=== PATIENT | female | born 1965 | race Caucasian/White ===

== ENCOUNTER 2019-02-17 16:55 | Emergency (ER) | payer OTHER ==
[2019-02-17] MEDS ORDERED: MORPHINE 4 MG/ML SYR ONE ×2 (18:52→20:16)
[2019-02-17] MEDS ORDERED: ONDANSETRON 4 MG/2 ML VIAL ONE ×2 (18:52→20:16)
[2019-02-17 18:56] LABS: Absolute Lymphocytes (CBC) 2.6 K/uL (0.7-4.9); Basophils % 0.8 % (0-1.3); Hematocrit 39.1 % (36.0-45.0); Lymphocytes % 35.1 % (15.3-44.8); MPV 7.4 fL (7.6-11.3); RBC Red Blood Cell Count 3.97 M/uL (3.86-4.86)
[2019-02-17 19:05] LABS: Protime INR 0.97
--- NOTE | 2019-02-17 19:07 | RAD REPORT ---
EXAM DESCRIPTION: RAD - Chest Single View - 02/17/2019 6:59 pm CLINICAL HISTORY: Chest pain COMPARISON: January 2018 TECHNIQUE: AP portable chest image was obtained 1858 hours . FINDINGS: Lungs are clear. Heart and vasculature are normal. No measurable pleural effusion and no p neumothorax. No acute bony abnormality seen. No acute aortic findings suspected. No significant inter oz change. IMPRESSION: No acute cardiopulmonary process.
[2019-02-17 19:20] LABS: ALT/SGPT 14 U/L (12-78); AST/SGOT 12 U/L (15-37); Albumin 3.7 g/dL (3.4-5.0); Alkaline Phosphatase 74 U/L (45-117); BUN Blood Urea Nitrogen 15 mg/dL (7-18); Bicarbonate 23 mmol/L (21-32); Bilirubin Direct < 0.1 mg/dL (0-0.2); Bilirubin Total 0.2 mg/dL (0.2-1.0); Glucose Level 84 mg/dL (74-106); Magnesium 2.1 mg/dL (1.8-2.4); NT PRO-BNP 170 pg/mL (<125); Potassium 3.7 mmol/L (3.5-5.1); Protein, Total 6.9 g/dL (6.4-8.2); Sodium Level 144 mmol/L (136-145); Troponin (Emerg Dept Use Only) < 0.02 ng/mL (0.0-0.045)
--- NOTE | 2019-02-17 20:04 | EDPHYS ---
Physician Documentation [facility] Name: Sherri De La Garza Age: 53 yrs Sex: Female : 1965 Arrival Date: 02/17/2019 Time: 16:58 Bed 25 Private MD: ED Physician Nelson Adams HPI: 02/17 18:51 This 53 yrs old Female presents to ER via Ambulatory with complaints of Chest ma2 Pain > 30 y/o. 18:51 The patient or guardian reports chest pain that is located primarily in the substernal ma2 area. 18:52 Onset: gradually, 1 week(s) ago. Associated signs and symptoms: Pertinent positives: ma2 Pertinent negatives: abdominal pain, diaphoresis, headache, lower extremity swelling, nausea. The chest pain is described as aching. Severity of pain: At its worst the pain was mild in the emergency department the pain is unchanged. The patient has not experienced similar symptoms in the past. Historical: - Allergies: 16:58 No Known Allergies; la1 - PMHx: 16:58 Asthma; la1 - Immunization history:: Adult Immunizations up to date. - Social history:: Smoking status: Patient uses tobacco products, smokes one pack cigarettes per day. Patient/guardian denies using alcohol, street drugs, The patient lives with family. - Ebola Screening: : No symptoms or risks identified at this time. - Family history:: not pertinent. ROS: 18:52 Constitutional: Negative for fever, chills, and weight loss. ma2 18:52 All other systems are negative. Exam: 18:52 Constitutional: This is a well developed, well nourished patient who is awake, alert, ma2 and in no acute distress. Head/Face: Normocephalic, atraumatic. Eyes: Pupils equal round and reactive to light, extra-ocular motions intact. Lids and lashes normal. Conjunctiva and sclera are non-icteric and not injected. Cornea within normal limits. Periorbital areas with no swelling, redness, or edema. ENT: Nares patent. No nasal discharge, no septal abnormalities noted. Tympanic membranes are normal and external auditory canals are clear. Oropharynx with no redness, swelling, or masses, exudates, or evidence of obstruction, uvula midline. Mucous membranes moist. Neck: Trachea midline, no thyromegaly or masses palpated, and no cervical lymphadenopathy. Supple, full range of motion without nuchal rigidity, or vertebral point tenderness. No Meningismus. Chest/axilla: ttp mid chest, otherwise Normal chest wall appearance and motion. no deformity. No lesions are appreciated. Cardiovascular: Regular rate and rhythm with a normal S1 and S2. No gallops, murmurs, or rubs. Normal PMI, no JVD. No pulse deficits. Respiratory: Lungs have equal breath sounds bilaterally, clear to auscultation and percussion. No rales, rhonchi or wheezes noted. No increased work of breathing, no retractions or nasal flaring. Abdomen/GI: Soft, non-tender, with normal bowel sounds. No distension or tympany. No guarding or rebound. No evidence of tenderness throughout. Vital Signs: 16:59 Pulse 77; Resp 15; Temp 98.1; Pulse Ox 100% ; Weight 65.77 kg; Height 5 ft. 5 in. la1 (165.10 cm); 17:01 BP 105 / 56; la1 20:18 BP 108 / 63; Pulse 75; Resp 16 S; Pulse Ox 100% on R/A; Pain 0/10; cc3 16:59 Body Mass Index 24.13 (65.77 kg, 165.10 cm) la1 MDM: 18:16 Patient medically screened. ma2 18:52 Differential diagnosis: costochondritis, gastritis, gastroesophageal reflux disease ma2 (GERD), pleurisy. SARA Risk Score: not applicable. Data reviewed: vital signs, nurses notes. 20:03 Response to treatment: the patient's symptoms have resolved after treatment. ut2 02/17 18:28 Order name: Basic Metabolic Panel; Complete Time: 19:42 [facility] 02/17 18:28 Order name: CBC with Diff ut2 02/17 18:28 Order name: LFT's; Complete Time: 19:42 [facility] 02/17 18:28 Order name: Magnesium; Complete Time: 19:42 [facility] 02/17 18:28 Order name: NT PRO-BNP; Complete Time: 19:42 [facility] 02/17 18:28 Order name: PT-INR; Complete Time: 19:42 [facility] 02/17 18:07 Order name: EKG Electrocardiogram [facility] 02/17 18:28 Order name: Troponin (emerg Dept Use Only); Complete Time: 19:42 ma2 02/17 18:28 Order name: XRAY Chest (1 view); Complete Time: 19:42 ma2 02/17 18:28 Order name: Cardiac monitoring; Complete Time: 18:54 ma2 02/17 18:28 Order name: EKG - Nurse/Tech; Complete Time: 18:54 ma2 02/17 18:28 Order name: IV Saline Lock; Complete Time: 18:54 ma2 02/17 18:28 Order name: Labs collected and sent; Complete Time: 18:55 ma2 02/17 18:28 Order name: O2 Per Protocol; Complete Time: 18:55 ma2 02/17 18:28 Order name: O2 Sat Monitoring; Complete Time: 18:55 ma2 Administered Medications: 18:54 Drug: morphine 4 mg Route: IVP; Site: right forearm; rv 20:23 Follow up: Response: RASS: Alert and Calm (0) rv 18:54 Drug: Zofran 4 mg Route: IVP; Site: right forearm; rv 20:23 Drug: morphine 4 mg Route: IVP; Site: right forearm; rv 20:24 Follow up: Response: RASS: Alert and Calm (0) rv 20:23 Drug: Zofran 4 mg Route: IVP; Site: right forearm; rv 20:30 Follow up: Response: No adverse reaction; Nausea is decreased cc3 Disposition: 02/17/19 20:03 Discharged to Home. Impression: Acute bronchitis. - Condition is Stable. - Discharge Instructions: Acute Bronchitis, Adult. - Prescriptions for Tylenol- Codeine #3 300-30 mg Oral Tablet - take 2 tablet by ORAL route every 6 hours As needed; 30 tablet. Tessalon Perles 100 mg Oral Capsule - take 1 capsule by ORAL route every 8 hours As needed; 15 capsule. Tramadol 50 mg Oral Tablet - take 1 tablet by ORAL route every 8 hours as needed; 12 tablet. - Medication Reconciliation Form, Thank You Letter, Antibiotic Education, Prescription Opioid Use form. - Follow up: Private Physician; When: Tomorrow; Reason: If symptoms return. Signatures: Dispatcher [employer] EDWV Niko Qiu RN RN la1 Nelson Adams MD MD ma2 Bashir Vera RN RN Sobia Javed cc3 Corrections: (The following items were deleted from the chart) 20:32 20:03 02/17/2019 20:03 Discharged to Home. Impression: Acute bronchitis. Condition is cc3 Stable. Forms are Medication Reconciliation Form, Thank You Letter, Antibiotic Education, Prescription Opioid Use. Follow up: Private Physician; When: Tomorrow; Reason: If symptoms return. ma2
--- NOTE | 2019-02-17 20:04 | ER ---
Nurse's Notes [facility] Name: Sherri De La Garza Age: 53 yrs Sex: Female : 1965 Arrival Date: 02/17/2019 Time: 16:58 Bed 25 Private MD: Diagnosis: Acute bronchitis Presentation: 02/17 16:58 Presenting complaint: Patient states: I have been having chest pain since last week, la1 seen by PCP on Sunday. I still have a sharp and dull pain in my chest. Transition of care: patient was not received from another setting of care. Onset of symptoms was February 17, 2019. Risk Assessment: Do you want to hurt yourself or someone else? Patient reports no desire to harm self or others. Initial Sepsis Screen: Does the patient meet any 2 criteria? No. Patient's initial sepsis screen is negative. Does the patient have a suspected source of infection? No. Patient's initial sepsis screen is negative. Care prior to arrival: None. 16:58 Method Of Arrival: Ambulatory la1 16:58 Acuity: NICOLE 3 la1 Historical: - Allergies: 16:58 No Known Allergies; la1 - PMHx: 16:58 Asthma; la1 - Immunization history:: Adult Immunizations up to date. - Social history:: Smoking status: Patient uses tobacco products, smokes one pack cigarettes per day. Patient/guardian denies using alcohol, street drugs, The patient lives with family. - Ebola Screening: : No symptoms or risks identified at this time. - Family history:: not pertinent. Screenin:56 Abuse screen: Denies threats or abuse. Denies injuries from another. Nutritional rv screening: No deficits noted. Tuberculosis screening: No symptoms or risk factors identified. Fall Risk None identified. Assessment: 18:55 General: Appears in no apparent distress. uncomfortable, Behavior is calm, cooperative. rv Pain: Complains of pain in chest Pain does not radiate. Pain currently is 10 out of 10 on a pain scale. Pain began suddenly. Neuro: Level of Consciousness is awake, alert, obeys commands, Oriented to person, place, time, situation. Cardiovascular: Rhythm is regular. Respiratory: Airway is patent. GI: No signs and/or symptoms were reported involving the gastrointestinal system. : No signs and/or symptoms were reported regarding the genitourinary system. EENT: No signs and/or symptoms were reported regarding the EENT system. Derm: Skin is intact. Musculoskeletal: No signs and/or symptoms reported regarding the musculoskeletal system. 20:30 Reassessment: Patient appears in no apparent distress at this time. Patient and/or cc3 family updated on plan of care and expected duration. Pain level reassessed. Patient is alert, oriented x 3, equal unlabored respirations, skin warm/dry/pink. Dr. Adams discharged the patient home with prescriptions given. IV cannula removed and patient left ER vitally stable and ambulatory with her . No valuables left in the patient's room. Patient denies pain at this time. Patient states feeling better. Patient states symptoms have improved. Vital Signs: 16:59 Pulse 77; Resp 15; Temp 98.1; Pulse Ox 100% ; Weight 65.77 kg; Height 5 ft. 5 in. la1 (165.10 cm); 17:01 BP 105 / 56; la1 20:18 BP 108 / 63; Pulse 75; Resp 16 S; Pulse Ox 100% on R/A; Pain 0/10; cc3 16:59 Body Mass Index 24.13 (65.77 kg, 165.10 cm) la1 ED Course: 16:58 Patient arrived in ED. la1 16:58 Arm band placed on left wrist. la1 16:59 Triage completed. la1 17:24 EKG done, by printer repair technician. reviewed by Skip Vasquez MD. sm3 18:15 Nelson Adams MD is Attending Physician. ma2 18:45 Inserted saline lock: 22 gauge in right forearm, using aseptic technique. Blood rv collected. Patient maintains SpO2 saturation greater than 95% on room air. 18:49 Bashir Vera, TESS is Primary Nurse. rv 18:56 Patient has correct armband on for positive identification. Placed in gown. Bed in low rv position. Call light in reach. Side rails up X 1. Adult w/ patient. cafeteria monitor on. Pulse ox on. NIBP on. 19:04 XRAY Chest (1 view) In Process Unspecified. EDMS 20:30 No provider procedures requiring assistance completed. IV discontinued, intact, cc3 bleeding controlled, No redness/swelling at site. Pressure dressing applied. Administered Medications: 18:54 Drug: morphine 4 mg Route: IVP; Site: right forearm; rv 20:23 Follow up: Response: RASS: Alert and Calm (0) rv 18:54 Drug: Zofran 4 mg Route: IVP; Site: right forearm; rv 20:23 Drug: morphine 4 mg Route: IVP; Site: right forearm; rv 20:24 Follow up: Response: RASS: Alert and Calm (0) rv 20:23 Drug: Zofran 4 mg Route: IVP; Site: right forearm; rv 20:30 Follow up: Response: No adverse reaction; Nausea is decreased cc3 Outcome: 20:03 Discharge ordered by . ma2 20:30 Discharged to home ambulatory, with family. cc3 20:30 Condition: stable 20:30 Discharge instructions given to patient, family, Instructed on discharge instructions, follow up and referral plans. medication usage, Demonstrated understanding of instructions, follow-up care, medications, Prescriptions given X 3. 20:32 Patient left the ED. cc3 Signatures: Dispatcher [employer] EDMS Niko Qiu RN RN Nelson Washington MD MD ma2 Mara Stallworth 3 Bashir Vera RN RN Sobia Javed cc3
[2019-02-17 21:56] VITALS: TEMP 98.1; O2SAT 100
[2019-02-17 21:58] VITALS: BP 105/56
--- NOTE | 2019-02-18 07:25 | EKG ---
Test Date: 2019-02-17 Test Time: 17:04:12 [employer] Supervisor: ANILA MEASUREMENT RESULTS: Intervals: Rate: 71 MS: 146 QRSD: 82 QT: 384 QTc: 417 [place]: P: 75 MS: 146 QRS: 74 T: 66 INTERPRETIVE STATEMENTS: Normal sinus rhythm normal ECG Compared to ECG 05/30/2016 14:00:29 no significant change from previous ECG Electronically Signed On 02-18-19 07:25:09 CDT by Walker Alicea
== END 2019-02-17 20:32 | disposition home or self-care (01) ==
LOC: ER 16:55
DX: J20.9 Acute bronchitis, unspecified (principal); F17.210 Nicotine dependence, cigarettes, uncomplicated
CPT/HCPCS: 93005; 85025; 80048; 36415; 83735; 85610; 80076; 84484; 83880; 71045; 96375; 96374; 99285; J2405 ×2

== ENCOUNTER 2022-04-11 13:09 | Emergency (ER) | payer OTHER ==
[2022-04-11] MEDS ORDERED: ASPIRIN 81 MG CHEWABLE TABLET ONE (13:26)
--- OUTSIDE RECORDS SUMMARY | 2022-04-11 13:26 | XMS REPORT | Clinical Summary ---
:1965 Author Organization [facility] Address [address] [place] [id number] Care Team Providers Name Role Phone Unavailable Primary Care Provider Unavailable Allergies No known active allergies Medications Medication Sig Dispensed Refills Start Date End Date Status albuterol (VENTOLIN 0 05/10/2020 Active HFA,PROAIR HFA) 90 mcg/puff inhaler atorvastatin (LIPITOR) 20 0 05/06/2020 Active mg tablet ergocalciferol (DRISDOL) 0 12/18/2019 Active 50,000 units capsule HYDROcodone-acetaminophen 0 07/23/2020 Active (NORCO) 7.5 mg-325 mg per tablet methylPREDNISolone 0 07/22/2020 Active (MEDROL DOSEPACK) 4 mg tablet pantoprazole (PROTONIX) TAKE 1 TABLET 0 04/30/2020 Active 40 mg EC tablet BY MOUTH DAILY 30 MINUTES BEFORE BREAKFAST (EMPTY STOMACH) zolpidem (AMBIEN) 10 mg 0 07/09/2020 Active tablet INV-() Take 1 tablet 84 tablet 0 09/03/2020 Active varenicline (CHANTIX) 1 (1 mg) by mouth mg tabletIndications: twice daily Ex-smoker for less than 1 year Active Problems Problem Noted Date Ex-smoker for less than 1 year 09/03/2020 Social History Tobacco Use Types Packs/Day Years Used Date Smoking Tobacco: Former Cigarettes 1 2000 - 08/06/2020 Smokeless Tobacco: Never Tobacco Cessation: Ready to Quit: Yes; C ounseling Given: Yes Alcohol Use Standard Drinks/Week Comments Not Currently 0 (1 standard drink = 0.6 oz pure alcoho l) 1-2 drinks year Sex Assigned at Date Recorded Not on file Obstetrics History Last Filed Vital Signs Not on file Plan of Treatment Health Maintenance Due Date Last Done Comments COVID-19 Vaccination (#1) 03/15/1966 Results Not on fileafter 04/11/2021
--- OUTSIDE RECORDS SUMMARY | 2022-04-11 13:26 | XMS REPORT | Continuity of Care Document ---
:1965 Author Organization [facility] t Address [address] [place] [address] Care Team Providers Name Role Phone Asked, No Pcp Primary Care Physician Unavailable Tanmay Hartman Attending Clinician Unavailable SYSTEM, PROVIDER NOT IN Attending Clinician Unavailable Nanci GARCIA, Nisreen Roach Attending Clinician Meri Sanchez MA Attending Clinician Unavailable CATARINO NICKERSON Attending Clinician Unavailable Ximena Fox RN Attending Clinician Unavailable [facility], [facility] Attending Clinician Unavailable Rosalia Martinez PA-C Attending Clinician Payers Payer Name Policy Type Policy Number Effective Date Expiration Date S karin AETNA 53 [id number] 2011 [facility] - 00:00:00 [facility] AETNA 53 [id number] 2021 [facility] - 00:00:00 [facility] AETNA 2 [id number] 2018 00:00:00 Problems Condition Condition Condition Status Onset Resolution Last Treating Co mments Source Name Details Category Date Date Treatment Clinician Date Ex-smoker Ex-smoker Disease Active Uni vers for less for less 4-16 ity of than 1 than 1 00:00: [place] year year MD [facility] [id number] Tobacco Problem Commo n use Spirit disorder - [facility] [id number] PUD Problem Common (peptic Spirit ulcer - [facility] disease) [facility] [id number] Mixed Problem Common hyperlipid Spirit emia - [facility] [id number] Fibromyalg Problem Co mmon ia Spirit - [facility] [id number] Mild Problem Common intermitte Spirit nt asthma - [facility] without [facility] [id number] CORA Problem Common (generaliz Spirit ed anxiety - [facility] disorder) [facility] [id number] GERD Problem Common without Spirit esophagiti - [facility] s [facility] Insomnia Insomnia Problem Commo n Spirit - [facility] [id number] Gastritis, Problem Comm on presence Spirit of - [facility] d chronicity , unspecifie d gastritis type [id number] Osteoarthr Problem Co mmon itis Spirit involving - [facility] multiple [facility] joints on [facility] both sides Medica [facility] of body Center [id number] Migraine Problem Comm on without Spirit aura and - [facility] without [facility] status [facility], not Center intractabl e [id number] Lumbago Problem Commo n with Spirit sciatica, - [facility]I unspecifie [facility] side [facility] [id number] Other Problem Common chronic Spirit pain - [facility] No known No known Disease Unive rs active active ity of problems problems [place] [facility] Allergies, Adverse Reactions, Alerts Allergy Allergy Status Severity Reaction(s) Onset Inactive Treating Comm ents Source Name Type Date Date Clinician Acetamin Propensi Active Other - See Chest U nivers ophen-Co ty to comments 01-10 pain ity of deine adverse 00:00: [place] reaction 00 [facility] s [facility] ACETAMIN DRUG Active Other-Cmnt Univ ers OPHEN-CO 01-10 ity of DEINE 00:00: [place] 00 [facility] Family History Family Member Diagnosis Comments Start Date Stop Date Source Maternal grandfather Colon cancer [facility] Maternal grandfather Liver cancer [facility] Maternal grandfather Pancreatic cancer [facility] Maternal grandmother Ulcerative colitis [facility] Natural mother Ulcerative colitis [facility] Natural sister Irritable bowel [facility] Social History Social Habit Start Date Stop Date Quantity Comments Source History of Tobacco Current Smoker Co mmon Spirit - Use [facility] History [facility] University o f Alcohol Std Drinks [place] [facility] [place] History [facility] o f Alcohol Binge [facility] al [place] Alcohol intake 2022-02-07 2022-02-07 Lifetime Denominational 00:00:00 00:00:00 non-drinker Hospital (finding) Cigarettes smoked 2022-01-02 2022-01-[address] current (pack per 00:00:00 00:00:00 Hospita l day) - Reported Cigarette 2022-01-02 2022-01-02 Denominational pack-years 00:00:00 00:00:00 Hospital Tobacco use and 2022-01-02 2022-01-02 Smokeless Denominational exposure 00:00:00 00:00:00 tobacco non-user Hospital Alcohol Comment 2020-07-23 2020-07-23 1-2 drinks year Univ ersity of 00:00:00 00:00:00 [place] MD [facility] History SDAR 2018-11-19 2018-11-19 1 University o f Alcohol Frequency 00:00:00 00:00:00 [facility] [place] Sex Assigned At [birth year] Denominational 00:00:00 00:00:00 Hospital Smoking Status Start Date Stop Date Source Current Smoker 2022-03-08 00:00:00 [facility] Former Smoker 2021-12-02 00:00:00 2021-12-02 00:00:00 [facility] S pirit - [facility] Medications Ordered Filled Start Stop Current Ordering Indication Dosage Frequency Signature Comments Components Source Medication Medication Date Date Medication? Clinician (SIG) Name Name Cyclobenzap Cyclobenzap 2021-05 No 1{table QD Cyclobenza rine HCl 10 rine HCl 10 0-19 t_at_be sudha HCl MG MG 00:00: dtime_a 10 MG 00 s_neede d} Kenalog Kenalog 2021-05 No 40mg Common (Triamcinol (Triamcinol 0-19 S pirit one) one) 00:00: - [facility] Kenalog Kenalog 2021-05 No 40mg Common (Triamcinol (Triamcinol 0-19 S pirit one) one) 00:00: - [facility] 00 [facility] Cyclobenzap Cyclobenzap 2021-05 No 1{table QD Cyclobenza rine HCl 10 rine HCl 10 0-19 t_at_be sudha HCl MG MG 00:00: dtime_a 10 MG 00 s_neede d} Sindy Callahan 2021-05 No 40mg Common (Triamcinol (Triamcinol 0-19 S pirit one) one) 00:00: - [facility] 00 [facility] Sindy Callahan 2021-05 No 40mg Common (Triamcinol (Triamcinol 0-19 S pirit one) one) 00:00: - [facility] 00 [facility] Tylenol # 3 Tylenol # 3 2021-05- No Tylenol # 300/30mg 300/30mg 0-19 - 3 300/30mg 00:00: 00:00 00 :00 Tylenol # 3 Tylenol # 3 2021-05- No Tylenol # 300/30mg 300/30mg 0-19 -24 3 300/30mg 00:00: 00:00 00 :00 Ambien 10 Ambien 10 2021-05 No 1{table QD Ambien 10 MG MG 0-18 t_at_be MG 00:00: dtime_a 00 s_neede d} Ambien 10 Ambien 10 2021-05 No 1{table QD Ambien 10 MG MG 0-18 t_at_be MG 00:00: dtime_a 00 s_neede d} Ambien 10 Ambien 10 2021-05 No 1{table QD Ambien 10 MG MG 0-18 t_at_be MG 00:00: dtime_a 00 s_neede d} Ambien 10 Ambien 10 2021-05 No 1{table QD Ambien 10 MG MG 0-18 t_at_be MG 00:00: dtime_a 00 s_neede d} dicyclomine Yes 10mg Q.5D Take 1 Meth bel (BENTYL) 10 9-[address] MG capsule 00:00: (10 mg Hospi ta 00 total) by l mouth 2 (two) times a day before meals. sod 160mL Q.5D Take 160 Methodi picosulf-ma 01-25 09-[address] chuck ox-citric 00:00: 04:59 mouth 2 Ho spita ac 00 :00 (two) l (Clenpiq) times a 10 mg-3.5 day for 1 gram -12 day. To be gram/160 mL taken as solution directed. Ambien 10 Daniel 10 No 1{table QD Ambien 10 MG MG 7-27 t_at_be MG 00:00: dtime_a 00 s_neede d} Ambien 10 Ambien 10 No 1{table QD Ambien 10 MG MG 7-27 t_at_be MG 00:00: dtime_a 00 s_neede d} Ambien 10 Mirelaien 10 No 1{table QD Ambien 10 MG MG 7-27 t_at_be MG 00:00: dtime_a 00 s_neede d} Ambien 10 Daniel 10 No 1{table QD Ambien 10 MG MG 7-27 t_at_be MG 00:00: dtime_a 00 s_neede d} Ambien 10 Ambien 10 No 1{table QD Ambien 10 MG MG 7-27 t_at_be MG 00:00: dtime_a 00 s_neede d} Ambien 10 Mirelaien 10 No 1{table QD Ambien 10 MG MG 7-27 t_at_be MG 00:00: dtime_a 00 s_neede d} Ambien 10 Ambien 10 No 1{table QD Ambien 10 MG MG 7-27 t_at_be MG 00:00: dtime_a 00 s_neede d} Ambien 10 Ambien 10 No 1{table QD Ambien 10 MG MG 7-27 t_at_be MG 00:00: dtime_a 00 s_neede d} Ambien 10 Ambien 10 No 1{table QD Ambien 10 MG MG 7-27 t_at_be MG 00:00: dtime_a 00 s_neede d} Ambien 10 Ambien 10 No 1{table QD Ambien 10 MG MG 7-27 t_at_be MG 00:00: dtime_a 00 s_neede d} Ambien 10 Ambien 10 No 1{table QD Ambien 10 MG MG 7-27 t_at_be MG 00:00: dtime_a 00 s_neede d} Ambien 10 Ambien 10 No 1{table QD Ambien 10 MG MG 7-27 t_at_be MG 00:00: dtime_a 00 s_neede d} Ambien 10 Ambien 10 No 1{table QD Ambien 10 MG MG 7-27 t_at_be MG 00:00: dtime_a 00 s_neede d} Ambien 10 Ambien 10 No 1{table QD Ambien 10 MG MG 7-27 t_at_be MG 00:00: dtime_a 00 s_neede d} Ambien 10 Ambien 10 No 1{table QD Ambien 10 MG MG 7-27 t_at_be MG 00:00: dtime_a 00 s_neede d} zolpidem Yes Methodi (AMBIEN) 10 7-27 st mg tablet [facility] Com mon (Ceftriaxon (Ceftriaxon 7-21 S pirit e) e) 00:00: - [facility] 00 [facility] No 1000mg Com mon (Ceftriaxon (Ceftriaxon 7-21 S pirit e) e) 00:00: - [facility] 00 [facility] 2021-0 No 1000mg Com mon (Ceftriaxon (Ceftriaxon 7-21 S pirit e) e) 00:00: - [facility] 00 [facility] 2021-0 No 1000mg Com mon (Ceftriaxon (Ceftriaxon 7-21 S pirit e) e) 00:00: [facility] Com mon (Ceftriaxon (Ceftriaxon 7-21 S pirit e) e) 00:00: - [facility]I 00 [facility] Rocephin Rocephin 2021-0 No 1000mg Com mon (Ceftriaxon (Ceftriaxon 7-21 S pirit e) e) 00:00: - [facility]I 00 [facility] Rocephin Rocephin 2021-0 No 1000mg Com mon (Ceftriaxon (Ceftriaxon 7-21 S pirit e) e) 00:00: - [facility] 00 [facility] Rocephin Rocephin 2021-0 No 1000mg Com mon (Ceftriaxon (Ceftriaxon 7-21 S pirit e) e) 00:00: - [facility]I 00 [facility] Rocephin Rocephin 2021-0 No 1000mg Com mon (Ceftriaxon (Ceftriaxon 7-21 S pirit e) e) 00:00: - [facility]I 00 [facility] Rocepcornelion Rocephin 2021-0 No 1000mg Com mon (Ceftriaxon (Ceftriaxon 7-21 S pirit e) e) 00:00: - [facility]I 00 [facility] Rocephin Rocephin 2021-0 No 1000mg Com mon (Ceftriaxon (Ceftriaxon 7-21 S pirit e) e) 00:00: - [facility]I 00 [facility] Rocephin Rocephin 2021-0 No 1000mg Com mon (Ceftriaxon (Ceftriaxon 7-21 S pirit e) e) 00:00: - [facility]I 00 [facility] Rocephin Rocephin 2021-0 No 1000mg Com mon (Ceftriaxon (Ceftriaxon 7-21 S pirit e) e) 00:00: - [facility]I 00 [facility] Rocephin Rocephin 2021-0 No 1000mg Com mon (Ceftriaxon (Ceftriaxon 7-21 S pirit e) e) 00:00: - [facility]I 00 [facility] Rocephin Rocephin 2021-0 No 1000mg Com mon (Ceftriaxon (Ceftriaxon 7-21 S pirit e) e) 00:00: - [facility]I 00 [facility] Rocephin Rocephin 2021-0 No 1000mg Com mon (Ceftriaxon (Ceftriaxon 7-21 S pirit e) e) 00:00: - CHI 00 [facility] Tiffany Allen 0 No 1000mg Com mon (Ceftriaxon (Ceftriaxon 7-21 S pirit e) e) 00:00: - [facility]I 00 [facility] Tiffany Madridn 2021-0 No 1000mg Com mon (Ceftriaxon (Ceftriaxon 7-21 S pirit e) e) 00:00: - [facility]I 00 [facility] Sindy Callahan 0 No 40mg Common (Triamcinol (Triamcinol 7-19 S pirit one) one) 00:00: - [facility]I 00 [facility] Sindy Kenfrancesco 0 No 40mg Common (Triamcinol (Triamcinol 7-19 S pirit one) one) 00:00: - [facility]I 00 [facility] Kenfrancesco Kenalog 0 No 40mg Common (Triamcinol (Triamcinol 7-19 S pirit one) one) 00:00: - [facility]I 00 [facility] Kenfrancesco Kenfrancesco 0 No 40mg Common (Triamcinol (Triamcinol 7-19 S pirit one) one) 00:00: - [facility]I 00 [facility] Kenfrancesco Kenfrancesco 2021-0 No 40mg Common (Triamcinol (Triamcinol 7-19 S pirit one) one) 00:00: - [facility]I 00 [facility] Kenfrancesco Kenalog 2021-0 No 40mg Common (Triamcinol (Triamcinol 7-19 S pirit one) one) 00:00: - [facility]I 00 [facility] Kenalog Kenalog 2021-0 No 40mg Common (Triamcinol (Triamcinol 7-19 S pirit one) one) 00:00: - [facility] 00 [facility] Kenfrancesco Kenalog 2021-0 No 40mg Common (Triamcinol (Triamcinol 7-19 S pirit one) one) 00:00: - [facility]I 00 [facility] Kenalog Kenalog 2021-0 No 40mg Common (Triamcinol (Triamcinol 7-19 S pirit one) one) 00:00: - [facility]I 00 [facility] Kenalog Kenalog 2021-0 No 40mg Common (Triamcinol (Triamcinol 7-19 S pirit one) one) 00:00: - [facility]I 00 [facility] Kenalog Kenalog 2021-0 No 40mg Common (Triamcinol (Triamcinol 7-19 S pirit one) one) 00:00: - [facility]I 00 [facility] Kenalog Kenalog 2021-0 No 40mg Common (Triamcinol (Triamcinol 7-19 S pirit one) one) 00:00: - [facility] 00 [facility] Kenalog Kenalog 2021-0 No 40mg Common (Triamcinol (Triamcinol 7-19 S pirit one) one) 00:00: - [facility]I 00 [facility] Kenalog Kenalog 2021-0 No 40mg Common (Triamcinol (Triamcinol 7-19 S pirit one) one) 00:00: - [facility]I 00 [facility] Kenfrancesco Kenalog 2021-0 No 40mg Common (Triamcinol (Triamcinol 7-19 S pirit one) one) 00:00: - [facility]I 00 [facility] Kenalog Kenalog 2021-0 No 40mg Common (Triamcinol (Triamcinol 7-19 S pirit one) one) 00:00: - [facility] 00 [facility] Kenalog Kenalog 2021-0 No 40mg Common (Triamcinol (Triamcinol 7-19 S pirit one) one) 00:00: - [facility]I 00 [facility] Kenalog Kenalog 2021-0 No 40mg Common (Triamcinol (Triamcinol 7-19 S pirit one) one) 00:00: - [facility] 00 [facility] Kenalog Kenalog 2021-0 No 40mg Common (Triamcinol (Triamcinol 7-19 S pirit one) one) 00:00: - [facility] 00 [facility] Azithromyci Azithromyci 2021- No QD Azithromyc n 250 MG n 250 MG 12-06 07-24 in 250 MG 00:00: 00:00 00 :00 Azithromyci Azithromyci 0 2022- No QD Azithromyc n 250 MG n 250 MG 12-06 in 250 MG 00:00: 00:00 00 :00 Azithromyci Azithromyci 0 2021- No QD Azithromyc n 250 MG n 250 MG 12-06 in 250 MG 00:00: 00:00 00 :00 Azithromyci Azithromyci 0 2021- No QD Azithromyc n 250 MG n 250 MG 12-06 in 250 MG 00:00: 00:00 00 :00 pantoprazol 0 Yes Method i e 12-05 st (PROTONIX) 00:00: Hospita 40 MG EC 00 l tablet Ambien 10 Daniel 10 No 1{table QD Ambien 10 MG MG 5-04 t_at_be MG 00:00: dtime_a 00 s_neede d} Ambien 10 Ambien 10 No 1{table QD Ambien 10 MG MG 5-04 t_at_be MG 00:00: dtime_a 00 s_neede d} Ambien 10 Ambien 10 No 1{table QD Ambien 10 MG MG 5-04 t_at_be MG 00:00: dtime_a 00 s_neede d} Sindy Callahan 0 No 40mg Common (Triamcinol (Triamcinol 7-06 S pirit one) one) 00:00: - [facility]I 00 [facility] Kenalog Kenalog 0 No 40mg Common (Triamcinol (Triamcinol 7-06 S pirit one) one) 00:00: - [facility]I 00 [facility] Kenalog Kenalog 2020-0 No 40mg Common (Triamcinol (Triamcinol 7-06 S pirit one) one) 00:00: - [facility]I 00 [facility] Kenalog Kenalog 2020-0 No 40mg Common (Triamcinol (Triamcinol 7-06 S pirit one) one) 00:00: - [facility] Kenalog Kenalog 2020-0 No 40mg Common (Triamcinol (Triamcinol 7-06 S pirit one) one) 00:00: - [facility]I 00 [facility] Kenalog Kenalog 2020-0 No 40mg Common (Triamcinol (Triamcinol 7-06 S pirit one) one) 00:00: - [facility]I 00 [facility] Kenalog Kenalog 2020-0 No 40mg Common (Triamcinol (Triamcinol 7-06 S pirit one) one) 00:00: - [facility]I 00 [facility] Kenalog Kenalog 2020-0 No 40mg Common (Triamcinol (Triamcinol 7-06 S pirit one) one) 00:00: - [facility]I 00 [facility] Kenalog Kenalog 2020-0 No 40mg Common (Triamcinol (Triamcinol 7-06 S pirit one) one) 00:00: - [facility]I 00 [facility] Kenalog Kenalog 0 No 40mg Common (Triamcinol (Triamcinol 7-06 S pirit one) one) 00:00: - [facility] 00 [facility] Kenalog Kenalog 2020-0 No 40mg Common (Triamcinol (Triamcinol 7-06 S pirit one) one) 00:00: - [facility] 00 [facility] Kenalog Kenalog 2020-0 No 40mg Common (Triamcinol (Triamcinol 7-06 S pirit one) one) 00:00: - [facility] 00 [facility] Kenalog Kenalog 2020-0 No 40mg Common (Triamcinol (Triamcinol 7-06 S pirit one) one) 00:00: - [facility] 00 [facility] Kenalog Kenalog 2020-0 No 40mg Common (Triamcinol (Triamcinol 7-06 S pirit one) one) 00:00: - [facility] 00 [facility] Kenalog Kenalog 2020-0 No 40mg Common (Triamcinol (Triamcinol 7-06 S pirit one) one) 00:00: - [facility] 00 [facility] Kenalog Kenalog 2020-0 No 40mg Common (Triamcinol (Triamcinol 7-06 S pirit one) one) 00:00: - [facility] 00 [facility] Kenalog Kenalog No 40mg Common (Triamcinol (Triamcinol 7-06 S pirit one) one) 00:00: - [facility] 00 [facility] Sindy Callahan No 40mg Common (Triamcinol (Triamcinol 7-06 S pirit one) one) 00:[facility] No 40mg Common (Triamcinol (Triamcinol 7-06 S pirit one) one) 00:00: - CHI 00 [facility] Sindy No 40mg Common (Triamcinol (Triamcinol 7-06 S pirit one) one) 00:00: - [facility] 00 [facility] No 40mg Common (Triamcinol (Triamcinol 7-06 S pirit one) one) 00:00: - [facility] No 40mg Common (Triamcinol (Triamcinol 7-06 S pirit one) one) 00:00: - [facility] 00 [facility] INV-(2018- Yes Ex-smoker 1mg Take 1 Univers 953) 4-16 for less tablet (1 ity of varenicline 00:00: than 1 year mg) by [place] (CHANTIX) 1 00 mouth MD mg tablet twice Anderso daily [facility] HYDROcodone Yes Univer s -acetaminop 3-05 ity of hen (NORCO) 00:00: [place] 7.5 mg-325 00 MD mg per Anderso tablet [facility] methylPREDN Yes Univer s ISolone 3-04 ity of (MEDROL 00:00: [place] DOSEPACK) 4 00 [facility] Univers (AMBIEN) 10 2-19 ity of mg tablet 00:00: [place] 00 MD [facility] albuterol 2019-05 Yes Univers (VENTOLIN 2-21 ity of HFA,PROAIR 00:00: [place] HFA) 90 00 MD mcg/puff Anderso [facility]er [facility] atorvastati 2019-05 Yes Univer s n (LIPITOR) 2-17 ity of 20 mg 00:00: [place] tablet 00 MD Megha nuñez [facility] pantoprazol 2019-05 Yes TAKE 1 Univ ers e 2-11 TABLET BY ity of (PROTONIX) 00:00: MOUTH [place] 40 mg EC 00 DAILY 30 MD tablet MINUTES Androxanao BEFORE n BREAKFAST Cancer (EMPTY Center STOMACH) ergocalcife Yes Univer s rol 7-30 ity of (DRISDOL) 00:00: [place] 50,000 00 units Megha capsule n [facility] escitalopra Yes Univer s m oxalate 6-09 ity of 10 mg 00:00: [place] tablet 00 [facility] ity of 10 mg 00:00: [place] tablet 00 [facility] escitalopra Yes Univer s m oxalate 6-09 ity of 10 mg 00:00: [place] tablet 00 [facility] pantoprazol Yes 40mg Take 40 mg Univers e 40 mg EC 7-09 by mouth ity o f tablet 18:57: daily. [address] pantoprazol Yes 40mg Take 40 mg Univers e 40 mg EC 7-09 by mouth ity o f tablet 18:57: daily. [address] pantoprazol Yes 40mg Take 40 mg Univers e 40 mg EC 7-09 by mouth ity o f tablet 18:57: daily. [address] zolpidem 10 Yes 10mg Take 10 mg Univers mg tablet 7-27 by mouth ity of 00:00: at bedtime [place] [id number] as needed. [facility] zolpidem 10 Yes 10mg Take 10 mg Univers mg tablet 7-27 by mouth ity of 00:00: at bedtime [place] [address] as needed. [facility] zolpidem 10 Yes 10mg Take 10 mg Univers mg tablet 7-27 by mouth ity of 00:00: at bedtime [place] [address] as needed. [facility] methylPREDN methylPREDN No QD methylPRED ISolone 4 ISolone 4 NISolone 4 MG MG MG Benzonatate Benzonatate No 1{capsu Benzonatat 200 MG 200 MG le_as_n e 200 MG eeded} Excedrin Excedrin No Excedrin Migraine Migraine Migraine Protonix 40 Protonix 40 No 1{table QD Protonix MG MG t} 40 MG Azithromyci Azithromyci No QD Azithromyc n 250 MG n 250 MG in 250 MG Dicyclomine Dicyclomine No 2{capsu TID Dicyclomin HCl 10 MG HCl 10 MG les} e HCl 10 MG Vitamin B12 Vitamin B12 No Vitamin 3000 MCG 3000 MCG B12 3000 MCG Vitamin C Vitamin C No 1{table QD Vitamin C 1000 MG 1000 MG t} 1000 MG Vitamin B6 Vitamin B6 No 1{table QD Vitamin B6 100 MG 100 MG t} 100 MG Turmeric Turmeric No Turmeric Albuterol Albuterol No Albuterol Sulfate HFA Sulfate HFA Sulfate 108 (90 108 (90 HFA 108 Base) Base) (90 Base) MCG/ACT MCG/ACT MCG/ACT Albuterol Albuterol No 2{puff_ 6xD Albuterol Sulfate HFA Sulfate HFA as_need Sulfate 108 (90 108 (90 ed} HFA 108 Base) Base) (90 Base) MCG/ACT MCG/ACT MCG/ACT Zolpidem Zolpidem No 1{table QD Zolpidem Tartrate 10 Tartrate 10 t_at_be Tartrate MG MG dtime_a 10 MG s_neede d} Ambien 10 Ambien 10 No 1{table QD Ambien 10 MG MG t_at_be MG dtime_a s_neede d} Zinc 50 MG Zinc 50 MG No 1{table QD Zinc 50 MG t} Pantoprazol Pantoprazol No 1{table QD Pantoprazo e Sodium 40 e Sodium 40 t} le Sodium MG MG 40 MG Echinacea Echinacea No Echinacea 400 MG 400 MG 400 MG Vitamin B6 Vitamin B6 No 1{table QD Vitamin B6 100 MG 100 MG t} 100 MG Vitamin B12 Vitamin B12 No Vitamin 3000 MCG 3000 MCG B12 3000 MCG Pepcid AC Pepcid AC No Pepcid AC Vitamin C Vitamin C No 1{table QD Vitamin C 1000 MG 1000 MG t} 1000 MG Echinacea Echinacea No Echinacea 400 MG 400 MG 400 MG Protonix 40 Protonix 40 No 1{table QD Protonix MG MG t} 40 MG Zolpidem Zolpidem No 1{table QD Zolpidem Tartrate 10 Tartrate 10 t_at_be Tartrate MG MG dtime_a 10 MG s_neede d} Zinc 50 MG Zinc 50 MG No 1{table QD Zinc 50 MG t} Pantoprazol Pantoprazol No 1{table QD Pantoprazo e Sodium 40 e Sodium 40 t} le Sodium MG MG 40 MG Albuterol Albuterol No Albuterol Sulfate HFA Sulfate HFA Sulfate 108 (90 108 (90 HFA 108 Base) Base) (90 Base) MCG/ACT MCG/ACT MCG/ACT Excedrin Excedrin No Excedrin Migraine Migraine Migraine Turmeric Turmeric No Turmeric Vitamin B6 Vitamin B6 No 1{table QD Vitamin B6 100 MG 100 MG t} 100 MG Vitamin B12 Vitamin B12 No Vitamin 3000 MCG 3000 MCG B12 3000 MCG Pepcid AC Pepcid AC No Pepcid AC Vitamin C Vitamin C No 1{table QD Vitamin C 1000 MG 1000 MG t} 1000 MG Echinacea Echinacea No Echinacea 400 MG 400 MG 400 MG Protonix 40 Protonix 40 No 1{table QD Protonix MG MG t} 40 MG Zolpidem Zolpidem No 1{table QD Zolpidem Tartrate 10 Tartrate 10 t_at_be Tartrate MG MG dtime_a 10 MG s_neede d} Zinc 50 MG Zinc 50 MG No 1{table QD Zinc 50 MG t} Pantoprazol Pantoprazol No 1{table QD Pantoprazo e Sodium 40 e Sodium 40 t} le Sodium MG MG 40 MG Albuterol Albuterol No Albuterol Sulfate HFA Sulfate HFA Sulfate 108 (90 108 (90 HFA 108 Base) Base) (90 Base) MCG/ACT MCG/ACT MCG/ACT Excedrin Excedrin No Excedrin Migraine Migraine Migraine Turmeric Turmeric No Turmeric Vitamin B6 Vitamin B6 No 1{table QD Vitamin B6 100 MG 100 MG t} 100 MG Vitamin B12 Vitamin B12 No Vitamin 3000 MCG 3000 MCG B12 3000 MCG Pepcid AC Pepcid AC No Pepcid AC Vitamin C Vitamin C No 1{table QD Vitamin C 1000 MG 1000 MG t} 1000 MG Echinacea Echinacea No Echinacea 400 MG 400 MG 400 MG Protonix 40 Protonix 40 No 1{table QD Protonix MG MG t} 40 MG Zolpidem Zolpidem No 1{table QD Zolpidem Tartrate 10 Tartrate 10 t_at_be Tartrate MG MG dtime_a 10 MG s_neede d} Zinc 50 MG Zinc 50 MG No 1{table QD Zinc 50 MG t} Pantoprazol Pantoprazol No 1{table QD Pantoprazo e Sodium 40 e Sodium 40 t} le Sodium MG MG 40 MG Albuterol Albuterol No Albuterol Sulfate HFA Sulfate HFA Sulfate 108 (90 108 (90 HFA 108 Base) Base) (90 Base) MCG/ACT MCG/ACT MCG/ACT Excedrin Excedrin No Excedrin Migraine Migraine Migraine Turmeric Turmeric No Turmeric Zolpidem Zolpidem No 1{table QD Zolpidem Tartrate 10 Tartrate 10 t_at_be Tartrate MG MG dtime_a 10 MG s_neede d} Zinc 50 MG Zinc 50 MG No 1{table QD Zinc 50 MG t} Turmeric Turmeric No Turmeric Vitamin C Vitamin C No 1{table QD Vitamin C 1000 MG 1000 MG t} 1000 MG Albuterol Albuterol No Albuterol Sulfate HFA Sulfate HFA Sulfate 108 (90 108 (90 HFA 108 Base) Base) (90 Base) MCG/ACT MCG/ACT MCG/ACT Protonix 40 Protonix 40 No 1{table QD Protonix MG MG t} 40 MG Echinacea Echinacea No Echinacea 400 MG 400 MG 400 MG Vitamin B6 Vitamin B6 No 1{table QD Vitamin B6 100 MG 100 MG t} 100 MG Pantoprazol Pantoprazol No 1{table QD Pantoprazo e Sodium 40 e Sodium 40 t} le Sodium MG MG 40 MG Vitamin B12 Vitamin B12 No Vitamin 3000 MCG 3000 MCG B12 3000 MCG Excedrin Excedrin No Excedrin Migraine Migraine Migraine Vitamin C Vitamin C No 1{table QD Vitamin C 1000 MG 1000 MG t} 1000 MG Pantoprazol Pantoprazol No 1{table QD Pantoprazo e Sodium 40 e Sodium 40 t} le Sodium MG MG 40 MG Protonix 40 Protonix 40 No 1{table QD Protonix MG MG t} 40 MG Excedrin Excedrin No Excedrin Migraine Migraine Migraine Vitamin B6 Vitamin B6 No 1{table QD Vitamin B6 100 MG 100 MG t} 100 MG Turmeric Turmeric No Turmeric Albuterol Albuterol No Albuterol Sulfate HFA Sulfate HFA Sulfate 108 (90 108 (90 HFA 108 Base) Base) (90 Base) MCG/ACT MCG/ACT MCG/ACT Zolpidem Zolpidem No 1{table QD Zolpidem Tartrate 10 Tartrate 10 t_at_be Tartrate MG MG dtime_a 10 MG s_neede d} Echinacea Echinacea No Echinacea 400 MG 400 MG 400 MG Vitamin B12 Vitamin B12 No Vitamin 3000 MCG 3000 MCG B12 3000 MCG Zinc 50 MG Zinc 50 MG No 1{table QD Zinc 50 MG t} Vitamin C Vitamin C No 1{table QD Vitamin C 1000 MG 1000 MG t} 1000 MG Pantoprazol Pantoprazol No 1{table QD Pantoprazo e Sodium 40 e Sodium 40 t} le Sodium MG MG 40 MG Protonix 40 Protonix 40 No 1{table QD Protonix MG MG t} 40 MG Excedrin Excedrin No Excedrin Migraine Migraine Migraine Vitamin B6 Vitamin B6 No 1{table QD Vitamin B6 100 MG 100 MG t} 100 MG Turmeric Turmeric No Turmeric Albuterol Albuterol No Albuterol Sulfate HFA Sulfate HFA Sulfate 108 (90 108 (90 HFA 108 Base) Base) (90 Base) MCG/ACT MCG/ACT MCG/ACT Zolpidem Zolpidem No 1{table QD Zolpidem Tartrate 10 Tartrate 10 t_at_be Tartrate MG MG dtime_a 10 MG s_neede d} Echinacea Echinacea No Echinacea 400 MG 400 MG 400 MG Vitamin B12 Vitamin B12 No Vitamin 3000 MCG 3000 MCG B12 3000 MCG Zinc 50 MG Zinc 50 MG No 1{table QD Zinc 50 MG t} Vitamin C Vitamin C No 1{table QD Vitamin C 1000 MG 1000 MG t} 1000 MG Pantoprazol Pantoprazol No 1{table QD Pantoprazo e Sodium 40 e Sodium 40 t} le Sodium MG MG 40 MG Protonix 40 Protonix 40 No 1{table QD Protonix MG MG t} 40 MG Excedrin Excedrin No Excedrin Migraine Migraine Migraine Vitamin B6 Vitamin B6 No 1{table QD Vitamin B6 100 MG 100 MG t} 100 MG Turmeric Turmeric No Turmeric Albuterol Albuterol No Albuterol Sulfate HFA Sulfate HFA Sulfate 108 (90 108 (90 HFA 108 Base) Base) (90 Base) MCG/ACT MCG/ACT MCG/ACT Zolpidem Zolpidem No 1{table QD Zolpidem Tartrate 10 Tartrate 10 t_at_be Tartrate MG MG dtime_a 10 MG s_neede d} Echinacea Echinacea No Echinacea 400 MG 400 MG 400 MG Vitamin B12 Vitamin B12 No Vitamin 3000 MCG 3000 MCG B12 3000 MCG Zinc 50 MG Zinc 50 MG No 1{table QD Zinc 50 MG t} Albuterol Albuterol No Albuterol Sulfate HFA Sulfate HFA Sulfate 108 (90 108 (90 HFA 108 Base) Base) (90 Base) MCG/ACT MCG/ACT MCG/ACT Zolpidem Zolpidem No 1{table QD Zolpidem Tartrate 10 Tartrate 10 t_at_be Tartrate MG MG dtime_a 10 MG s_neede d} Excedrin Excedrin No Excedrin Migraine Migraine Migraine Turmeric Turmeric No Turmeric Vitamin C Vitamin C No 1{table QD Vitamin C 1000 MG 1000 MG t} 1000 MG Vitamin B12 Vitamin B12 No Vitamin 3000 MCG 3000 MCG B12 3000 MCG Zinc 50 MG Zinc 50 MG No 1{table QD Zinc 50 MG t} Pantoprazol Pantoprazol No 1{table QD Pantoprazo e Sodium 40 e Sodium 40 t} le Sodium MG MG 40 MG Protonix 40 Protonix 40 No 1{table QD Protonix MG MG t} 40 MG Echinacea Echinacea No Echinacea 400 MG 400 MG 400 MG Vitamin B6 Vitamin B6 No 1{table QD Vitamin B6 100 MG 100 MG t} 100 MG Albuterol Albuterol No Albuterol Sulfate HFA Sulfate HFA Sulfate 108 (90 108 (90 HFA 108 Base) Base) (90 Base) MCG/ACT MCG/ACT MCG/ACT Zolpidem Zolpidem No 1{table QD Zolpidem Tartrate 10 Tartrate 10 t_at_be Tartrate MG MG dtime_a 10 MG s_neede d} Excedrin Excedrin No Excedrin Migraine Migraine Migraine Turmeric Turmeric No Turmeric Vitamin C Vitamin C No 1{table QD Vitamin C 1000 MG 1000 MG t} 1000 MG Vitamin B12 Vitamin B12 No Vitamin 3000 MCG 3000 MCG B12 3000 MCG Zinc 50 MG Zinc 50 MG No 1{table QD Zinc 50 MG t} Pantoprazol Pantoprazol No 1{table QD Pantoprazo e Sodium 40 e Sodium 40 t} le Sodium MG MG 40 MG Protonix 40 Protonix 40 No 1{table QD Protonix MG MG t} 40 MG Echinacea Echinacea No Echinacea 400 MG 400 MG 400 MG Vitamin B6 Vitamin B6 No 1{table QD Vitamin B6 100 MG 100 MG t} 100 MG Albuterol Albuterol No Albuterol Sulfate HFA Sulfate HFA Sulfate 108 (90 108 (90 HFA 108 Base) Base) (90 Base) MCG/ACT MCG/ACT MCG/ACT Zolpidem Zolpidem No 1{table QD Zolpidem Tartrate 10 Tartrate 10 t_at_be Tartrate MG MG dtime_a 10 MG s_neede d} Excedrin Excedrin No Excedrin Migraine Migraine Migraine Turmeric Turmeric No Turmeric Vitamin C Vitamin C No 1{table QD Vitamin C 1000 MG 1000 MG t} 1000 MG Vitamin B12 Vitamin B12 No Vitamin 3000 MCG 3000 MCG B12 3000 MCG Zinc 50 MG Zinc 50 MG No 1{table QD Zinc 50 MG t} Pantoprazol Pantoprazol No 1{table QD Pantoprazo e Sodium 40 e Sodium 40 t} le Sodium MG MG 40 MG Protonix 40 Protonix 40 No 1{table QD Protonix MG MG t} 40 MG Echinacea Echinacea No Echinacea 400 MG 400 MG 400 MG Vitamin B6 Vitamin B6 No 1{table QD Vitamin B6 100 MG 100 MG t} 100 MG Protonix 40 Protonix 40 No 1{table QD Protonix MG MG t} 40 MG Excedrin Excedrin No Excedrin Migraine Migraine Migraine Vitamin B12 Vitamin B12 No Vitamin 3000 MCG 3000 MCG B12 3000 MCG Vitamin C Vitamin C No 1{table QD Vitamin C 1000 MG 1000 MG t} 1000 MG Zolpidem Zolpidem No 1{table QD Zolpidem Tartrate 10 Tartrate 10 t_at_be Tartrate MG MG dtime_a 10 MG s_neede d} Vitamin B6 Vitamin B6 No 1{table QD Vitamin B6 100 MG 100 MG t} 100 MG Echinacea Echinacea No Echinacea 400 MG 400 MG 400 MG Turmeric Turmeric No Turmeric Albuterol Albuterol No Albuterol Sulfate HFA Sulfate HFA Sulfate 108 (90 108 (90 HFA 108 Base) Base) (90 Base) MCG/ACT MCG/ACT MCG/ACT Zinc 50 MG Zinc 50 MG No 1{table QD Zinc 50 MG t} Pantoprazol Pantoprazol No 1{table QD Pantoprazo e Sodium 40 e Sodium 40 t} le Sodium MG MG 40 MG Protonix 40 Protonix 40 No 1{table QD Protonix MG MG t} 40 MG Excedrin Excedrin No Excedrin Migraine Migraine Migraine Vitamin B12 Vitamin B12 No Vitamin 3000 MCG 3000 MCG B12 3000 MCG Vitamin C Vitamin C No 1{table QD Vitamin C 1000 MG 1000 MG t} 1000 MG Zolpidem Zolpidem No 1{table QD Zolpidem Tartrate 10 Tartrate 10 t_at_be Tartrate MG MG dtime_a 10 MG s_neede d} Vitamin B6 Vitamin B6 No 1{table QD Vitamin B6 100 MG 100 MG t} 100 MG Echinacea Echinacea No Echinacea 400 MG 400 MG 400 MG Turmeric Turmeric No Turmeric Albuterol Albuterol No Albuterol Sulfate HFA Sulfate HFA Sulfate 108 (90 108 (90 HFA 108 Base) Base) (90 Base) MCG/ACT MCG/ACT MCG/ACT Zinc 50 MG Zinc 50 MG No 1{table QD Zinc 50 MG t} Pantoprazol Pantoprazol No 1{table QD Pantoprazo e Sodium 40 e Sodium 40 t} le Sodium MG MG 40 MG Protonix 40 Protonix 40 No 1{table QD Protonix MG MG t} 40 MG Excedrin Excedrin No Excedrin Migraine Migraine Migraine Vitamin B12 Vitamin B12 No Vitamin 3000 MCG 3000 MCG B12 3000 MCG Vitamin C Vitamin C No 1{table QD Vitamin C 1000 MG 1000 MG t} 1000 MG Zolpidem Zolpidem No 1{table QD Zolpidem Tartrate 10 Tartrate 10 t_at_be Tartrate MG MG dtime_a 10 MG s_neede d} Vitamin B6 Vitamin B6 No 1{table QD Vitamin B6 100 MG 100 MG t} 100 MG Echinacea Echinacea No Echinacea 400 MG 400 MG 400 MG Turmeric Turmeric No Turmeric Albuterol Albuterol No Albuterol Sulfate HFA Sulfate HFA Sulfate 108 (90 108 (90 HFA 108 Base) Base) (90 Base) MCG/ACT MCG/ACT MCG/ACT Zinc 50 MG Zinc 50 MG No 1{table QD Zinc 50 MG t} Pantoprazol Pantoprazol No 1{table QD Pantoprazo e Sodium 40 e Sodium 40 t} le Sodium MG MG 40 MG Protonix 40 Protonix 40 No 1{table QD Protonix MG MG t} 40 MG Excedrin Excedrin No Excedrin Migraine Migraine Migraine Vitamin B12 Vitamin B12 No Vitamin 3000 MCG 3000 MCG B12 3000 MCG Vitamin C Vitamin C No 1{table QD Vitamin C 1000 MG 1000 MG t} 1000 MG Zolpidem Zolpidem No 1{table QD Zolpidem Tartrate 10 Tartrate 10 t_at_be Tartrate MG MG dtime_a 10 MG s_neede d} Vitamin B6 Vitamin B6 No 1{table QD Vitamin B6 100 MG 100 MG t} 100 MG Echinacea Echinacea No Echinacea 400 MG 400 MG 400 MG Turmeric Turmeric No Turmeric Albuterol Albuterol No Albuterol Sulfate HFA Sulfate HFA Sulfate 108 (90 108 (90 HFA 108 Base) Base) (90 Base) MCG/ACT MCG/ACT MCG/ACT Zinc 50 MG Zinc 50 MG No 1{table QD Zinc 50 MG t} Pantoprazol Pantoprazol No 1{table QD Pantoprazo e Sodium 40 e Sodium 40 t} le Sodium MG MG 40 MG Vitamin B12 Vitamin B12 No Vitamin 3000 MCG 3000 MCG B12 3000 MCG Vitamin C Vitamin C No 1{table QD Vitamin C 1000 MG 1000 MG t} 1000 MG Zinc 50 MG Zinc 50 MG No 1{table QD Zinc 50 MG t} Vitamin B6 Vitamin B6 No 1{table QD Vitamin B6 100 MG 100 MG t} 100 MG methylPREDN methylPREDN No QD methylPRED ISolone 4 ISolone 4 NISolone 4 MG MG MG Benzonatate Benzonatate No 1{capsu Benzonatat 200 MG 200 MG le_as_n e 200 MG eeded} Albuterol Albuterol No Albuterol Sulfate HFA Sulfate HFA Sulfate 108 (90 108 (90 HFA 108 Base) Base) (90 Base) MCG/ACT MCG/ACT MCG/ACT Excedrin Excedrin No Excedrin Migraine Migraine Migraine Turmeric Turmeric No Turmeric Pantoprazol Pantoprazol No 1{table QD Pantoprazo e Sodium 40 e Sodium 40 t} le Sodium MG MG 40 MG Echinacea Echinacea No Echinacea 400 MG 400 MG 400 MG Zolpidem Zolpidem No 1{table QD Zolpidem Tartrate 10 Tartrate 10 t_at_be Tartrate MG MG dtime_a 10 MG s_neede d} Albuterol Albuterol No 2{puff_ 6xD Albuterol Sulfate HFA Sulfate HFA as_need Sulfate 108 (90 108 (90 ed} HFA 108 Base) Base) (90 Base) MCG/ACT MCG/ACT MCG/ACT Protonix 40 Protonix 40 No 1{table QD Protonix MG MG t} 40 MG Azithromyci Azithromyci No QD Azithromyc n 250 MG n 250 MG in 250 MG Vitamin B12 Vitamin B12 No Vitamin 3000 MCG 3000 MCG B12 3000 MCG Vitamin C Vitamin C No 1{table QD Vitamin C 1000 MG 1000 MG t} 1000 MG Zinc 50 MG Zinc 50 MG No 1{table QD Zinc 50 MG t} Vitamin B6 Vitamin B6 No 1{table QD Vitamin B6 100 MG 100 MG t} 100 MG methylPREDN methylPREDN No QD methylPRED ISolone 4 ISolone 4 NISolone 4 MG MG MG Benzonatate Benzonatate No 1{capsu Benzonatat 200 MG 200 MG le_as_n e 200 MG eeded} Albuterol Albuterol No Albuterol Sulfate HFA Sulfate HFA Sulfate 108 (90 108 (90 HFA 108 Base) Base) (90 Base) MCG/ACT MCG/ACT MCG/ACT Excedrin Excedrin No Excedrin Migraine Migraine Migraine Turmeric Turmeric No Turmeric Pantoprazol Pantoprazol No 1{table QD Pantoprazo e Sodium 40 e Sodium 40 t} le Sodium MG MG 40 MG Echinacea Echinacea No Echinacea 400 MG 400 MG 400 MG Zolpidem Zolpidem No 1{table QD Zolpidem Tartrate 10 Tartrate 10 t_at_be Tartrate MG MG dtime_a 10 MG s_neede d} Albuterol Albuterol No 2{puff_ 6xD Albuterol Sulfate HFA Sulfate HFA as_need Sulfate 108 (90 108 (90 ed} HFA 108 Base) Base) (90 Base) MCG/ACT MCG/ACT MCG/ACT Protonix 40 Protonix 40 No 1{table QD Protonix MG MG t} 40 MG Azithromyci Azithromyci No QD Azithromyc n 250 MG n 250 MG in 250 MG Vitamin B12 Vitamin B12 No Vitamin 3000 MCG 3000 MCG B12 3000 MCG Vitamin C Vitamin C No 1{table QD Vitamin C 1000 MG 1000 MG t} 1000 MG Zinc 50 MG Zinc 50 MG No 1{table QD Zinc 50 MG t} Vitamin B6 Vitamin B6 No 1{table QD Vitamin B6 100 MG 100 MG t} 100 MG methylPREDN methylPREDN No QD methylPRED ISolone 4 ISolone 4 NISolone 4 MG MG MG Benzonatate Benzonatate No 1{capsu Benzonatat 200 MG 200 MG le_as_n e 200 MG eeded} Albuterol Albuterol No Albuterol Sulfate HFA Sulfate HFA Sulfate 108 (90 108 (90 HFA 108 Base) Base) (90 Base) MCG/ACT MCG/ACT MCG/ACT Excedrin Excedrin No Excedrin Migraine Migraine Migraine Turmeric Turmeric No Turmeric Pantoprazol Pantoprazol No 1{table QD Pantoprazo e Sodium 40 e Sodium 40 t} le Sodium MG MG 40 MG Echinacea Echinacea No Echinacea 400 MG 400 MG 400 MG Zolpidem Zolpidem No 1{table QD Zolpidem Tartrate 10 Tartrate 10 t_at_be Tartrate MG MG dtime_a 10 MG s_neede d} Albuterol Albuterol No 2{puff_ 6xD Albuterol Sulfate HFA Sulfate HFA as_need Sulfate 108 (90 108 (90 ed} HFA 108 Base) Base) (90 Base) MCG/ACT MCG/ACT MCG/ACT Protonix 40 Protonix 40 No 1{table QD Protonix MG MG t} 40 MG Azithromyci Azithromyci No QD Azithromyc n 250 MG n 250 MG in 250 MG Vitamin B12 Vitamin B12 No Vitamin 3000 MCG 3000 MCG B12 3000 MCG Vitamin C Vitamin C No 1{table QD Vitamin C 1000 MG 1000 MG t} 1000 MG Excedrin Excedrin No Excedrin Migraine Migraine Migraine Zinc 50 MG Zinc 50 MG No 1{table QD Zinc 50 MG t} Vitamin B6 Vitamin B6 No 1{table QD Vitamin B6 100 MG 100 MG t} 100 MG methylPREDN methylPREDN No QD methylPRED ISolone 4 ISolone 4 NISolone 4 MG MG MG Benzonatate Benzonatate No 1{capsu Benzonatat 200 MG 200 MG le_as_n e 200 MG eeded} Zolpidem Zolpidem No 1{table QD Zolpidem Tartrate 10 Tartrate 10 t_at_be Tartrate MG MG dtime_a 10 MG s_neede d} Albuterol Albuterol No Albuterol Sulfate HFA Sulfate HFA Sulfate 108 (90 108 (90 HFA 108 Base) Base) (90 Base) MCG/ACT MCG/ACT MCG/ACT Turmeric Turmeric No Turmeric Azithromyci Azithromyci No QD Azithromyc n 250 MG n 250 MG in 250 MG Echinacea Echinacea No Echinacea 400 MG 400 MG 400 MG Pantoprazol Pantoprazol No 1{table QD Pantoprazo e Sodium 40 e Sodium 40 t} le Sodium MG MG 40 MG Albuterol Albuterol No 2{puff_ 6xD Albuterol Sulfate HFA Sulfate HFA as_need Sulfate 108 (90 108 (90 ed} HFA 108 Base) Base) (90 Base) MCG/ACT MCG/ACT MCG/ACT Protonix 40 Protonix 40 No 1{table QD Protonix MG MG t} 40 MG Vitamin B12 Vitamin B12 No Vitamin 3000 MCG 3000 MCG B12 3000 MCG methylPREDN methylPREDN No QD methylPRED ISolone 4 ISolone 4 NISolone 4 MG MG MG Benzonatate Benzonatate No 1{capsu Benzonatat 200 MG 200 MG le_as_n e 200 MG eeded} Excedrin Excedrin No Excedrin Migraine Migraine Migraine Protonix 40 Protonix 40 No 1{table QD Protonix MG MG t} 40 MG Azithromyci Azithromyci No QD Azithromyc n 250 MG n 250 MG in 250 MG Dicyclomine Dicyclomine No 2{capsu TID Dicyclomin HCl 10 MG HCl 10 MG les} e HCl 10 MG Vitamin B12 Vitamin B12 No Vitamin 3000 MCG 3000 MCG B12 3000 MCG Vitamin C Vitamin C No 1{table QD Vitamin C 1000 MG 1000 MG t} 1000 MG Vitamin B6 Vitamin B6 No 1{table QD Vitamin B6 100 MG 100 MG t} 100 MG Vitamin C Vitamin C No 1{table QD Vitamin C 1000 MG 1000 MG t} 1000 MG Turmeric Turmeric No Turmeric Albuterol Albuterol No Albuterol Sulfate HFA Sulfate HFA Sulfate 108 (90 108 (90 HFA 108 Base) Base) (90 Base) MCG/ACT MCG/ACT MCG/ACT Albuterol Albuterol No 2{puff_ 6xD Albuterol Sulfate HFA Sulfate HFA as_need Sulfate 108 (90 108 (90 ed} HFA 108 Base) Base) (90 Base) MCG/ACT MCG/ACT MCG/ACT Zolpidem Zolpidem No 1{table QD Zolpidem Tartrate 10 Tartrate 10 t_at_be Tartrate MG MG dtime_a 10 MG s_neede d} Ambien 10 Ambien 10 No 1{table QD Ambien 10 MG MG t_at_be MG dtime_a s_neede d} Zinc 50 MG Zinc 50 MG No 1{table QD Zinc 50 MG t} Pantoprazol Pantoprazol No 1{table QD Pantoprazo e Sodium 40 e Sodium 40 t} le Sodium MG MG 40 MG Echinacea Echinacea No Echinacea 400 MG 400 MG 400 MG Zinc 50 MG Zinc 50 MG No 1{table QD Zinc 50 MG t} Vitamin B6 Vitamin B6 No 1{table QD Vitamin B6 100 MG 100 MG t} 100 MG methylPREDN methylPREDN No QD methylPRED ISolone 4 ISolone 4 NISolone 4 MG MG MG Benzonatate Benzonatate No 1{capsu Benzonatat 200 MG 200 MG le_as_n e 200 MG eeded} Albuterol Albuterol No Albuterol Sulfate HFA Sulfate HFA Sulfate 108 (90 108 (90 HFA 108 Base) Base) (90 Base) MCG/ACT MCG/ACT MCG/ACT Excedrin Excedrin No Excedrin Migraine Migraine Migraine Turmeric Turmeric No Turmeric Pantoprazol Pantoprazol No 1{table QD Pantoprazo e Sodium 40 e Sodium 40 t} le Sodium MG MG 40 MG Echinacea Echinacea No Echinacea 400 MG 400 MG 400 MG Zolpidem Zolpidem No 1{table QD Zolpidem Tartrate 10 Tartrate 10 t_at_be Tartrate MG MG dtime_a 10 MG s_neede d} Albuterol Albuterol No 2{puff_ 6xD Albuterol Sulfate HFA Sulfate HFA as_need Sulfate 108 (90 108 (90 ed} HFA 108 Base) Base) (90 Base) MCG/ACT MCG/ACT MCG/ACT Protonix 40 Protonix 40 No 1{table QD Protonix MG MG t} 40 MG Azithromyci Azithromyci No QD Azithromyc n 250 MG n 250 MG in 250 MG Vitamin B12 Vitamin B12 No Vitamin 3000 MCG 3000 MCG B12 3000 MCG Vitamin C Vitamin C No 1{table QD Vitamin C 1000 MG 1000 MG t} 1000 MG Excedrin Excedrin No Excedrin Migraine Migraine Migraine Zinc 50 MG Zinc 50 MG No 1{table QD Zinc 50 MG t} Vitamin B6 Vitamin B6 No 1{table QD Vitamin B6 100 MG 100 MG t} 100 MG methylPREDN methylPREDN No QD methylPRED ISolone 4 ISolone 4 NISolone 4 MG MG MG Benzonatate Benzonatate No 1{capsu Benzonatat 200 MG 200 MG le_as_n e 200 MG eeded} Zolpidem Zolpidem No 1{table QD Zolpidem Tartrate 10 Tartrate 10 t_at_be Tartrate MG MG dtime_a 10 MG s_neede d} Albuterol Albuterol No Albuterol Sulfate HFA Sulfate HFA Sulfate 108 (90 108 (90 HFA 108 Base) Base) (90 Base) MCG/ACT MCG/ACT MCG/ACT Turmeric Turmeric No Turmeric Azithromyci Azithromyci No QD Azithromyc n 250 MG n 250 MG in 250 MG Echinacea Echinacea No Echinacea 400 MG 400 MG 400 MG Pantoprazol Pantoprazol No 1{table QD Pantoprazo e Sodium 40 e Sodium 40 t} le Sodium MG MG 40 MG Albuterol Albuterol No 2{puff_ 6xD Albuterol Sulfate HFA Sulfate HFA as_need Sulfate 108 (90 108 (90 ed} HFA 108 Base) Base) (90 Base) MCG/ACT MCG/ACT MCG/ACT Protonix 40 Protonix 40 No 1{table QD Protonix MG MG t} 40 MG Immunizations Ordered Immunization Filled Immunization Date Status Commen ts Source Name Name Flucelvax - single Flucelvax - single 2022-03-08 Completed [facility] dose syringe 15:10:00 - [facility] Flucelvax - single Flucelvax - single 2022-03-08 Completed [facility] dose syringe dose syringe 15:10:00 - [facility] Prevnar 20 (PCV20) Prevnar 20 (PCV20) 2021-09-21 Completed [facility] 11:40:00 - [facility] Prevnar 20 (PCV20) Prevnar 20 (PCV20) 2021-09-21 Completed [facility] 11:40:00 - [facility] Prevnar 20 (PCV20) Prevnar 20 (PCV20) 2021-09-21 Completed [facility] 11:40:00 - [facility] Prevnar 20 (PCV20) Prevnar 20 (PCV20) 2021-09-21 Completed [facility] 11:40:00 - [facility] Prevnar 20 (PCV20) Prevnar 20 (PCV20) 2021-09-21 Completed [facility] 11:40:00 - [facility] Prevnar 20 (PCV20) Prevnar 20 (PCV20) 2021-09-21 Completed [facility] 11:40:00 - [facility] Prevnar 20 (PCV20) Prevnar 20 (PCV20) 2021-09-21 Completed [facility] 11:40:00 - [facility] Prevnar 20 (PCV20) Prevnar 20 (PCV20) 2021-09-21 Completed [facility] 11:40:00 - [facility] Prevnar 20 (PCV20) Prevnar 20 (PCV20) 2021-09-21 Completed [facility] 11:40:00 - [facility] Prevnar 20 (PCV20) Prevnar 20 (PCV20) 2021-09-21 Completed [facility] 11:40:00 [facility] Prevnar 20 (PCV20) Prevnar 20 (PCV20) 2021-09-21 Completed [facility] 11:40:00 - [facility] Prevnar 20 (PCV20) Prevnar 20 (PCV20) 2021-09-21 Completed [facility] 11:40:00 [facility] Prevnar 20 (PCV20) Prevnar 20 (PCV20) 2021-09-21 Completed [facility] 11:40:00 [facility] Prevnar 20 (PCV20) Prevnar 20 (PCV20) 2021-09-21 Completed [facility] 11:40:00 [facility] Prevnar 20 (PCV20) Prevnar 20 (PCV20) 2021-09-21 Completed [facility] 11:40:00 - [facility] Prevnar 20 (PCV20) Prevnar 20 (PCV20) 2021-09-21 Completed [facility] 11:40:00 - [facility] Prevnar 20 (PCV20) Prevnar 20 (PCV20) 2021-09-21 Completed [facility] 11:40:00 - [facility] Prevnar 20 (PCV20) Prevnar 20 (PCV20) 2021-09-21 Completed [facility] 11:40:00 - [facility] Prevnar 20 (PCV20) Prevnar 20 (PCV20) 2021-09-21 Completed [facility] 11:40:00 - [facility] Prevnar 20 (PCV20) Prevnar 20 (PCV20) 2021-09-21 Completed [facility] 11:40:00 - [facility] Prevnar 20 (PCV20) Prevnar 20 (PCV20) 2021-09-21 Completed [facility] 11:40:00 - [facility] Prevnar 20 (PCV20) Prevnar 20 (PCV20) 2021-09-21 Completed [facility] 11:40:00 - [facility] Vital Signs Vital Name Observation Time Observation Value Comments Source height 2022-03-08 14:50:00 65 [in_i] [facility] weight 2022-03-08 14:50:00 128 [lb_av] [facility] temperature 2022-03-08 14:50:00 97.6 [degF] [facility] bmi 2022-03-08 14:50:00 21.3 kg/m2 [facility] oximetry 2022-03-08 14:50:00 97 % [facility] respiratory rate 2022-03-08 14:50:00 18 /min Comm on [facility] blood pressure 2022-03-08 14:50:00 126 mm[Hg] [facility] - systolic [facility] blood pressure 2022-03-08 14:50:00 59 mm[Hg] [facility] [place] diastolic [facility] height 2022-01-30 15:00:00 65 [in_i] [facility] weight 2022-01-30 15:00:00 125 [lb_av] [facility] temperature 2022-01-30 15:00:00 99.2 [degF] [facility] bmi 2022-01-30 15:00:00 20.8 kg/m2 [facility] oximetry 2022-01-30 15:00:00 95 % [facility] height 2021-12-08 09:30:00 65 [in_i] [facility] weight 2021-12-08 09:30:00 126.2 [lb_av] [facility] temperature 2021-12-08 09:30:00 97.9 [degF] [facility] bmi 2021-12-08 09:30:00 21 kg/m2 [facility] oximetry 2021-12-08 09:30:00 98 % [facility] respiratory rate 2021-12-08 09:30:00 18 /min Comm on [facility] blood pressure 2021-12-08 09:30:00 128 mm[Hg] [facility] systolic [facility] blood pressure 2021-12-08 09:30:00 67 mm[Hg] Common [facility] diastolic [facility] height 2021-12-06 15:00:00 65 [in_i] Common [facility] weight 2021-12-06 15:00:00 126 [lb_av] [facility] temperature 2021-12-06 15:00:00 97.1 [degF] [facility] bmi 2021-12-06 15:00:00 20.97 kg/m2 [facility] oximetry 2021-12-06 15:00:00 98 % [facility] respiratory rate 2021-12-06 15:00:00 18 /min Comm on [facility] blood pressure 2021-12-06 15:00:00 135 mm[Hg] [facility] - systolic [facility] blood pressure 2021-12-06 15:00:00 80 mm[Hg] [facility] - diastolic [facility] height 2021-09-21 10:50:00 65 [in_i] Common [facility] weight 2021-09-21 10:50:00 122.2 [lb_av] Common [facility] temperature 2021-09-21 10:50:00 97.2 [degF] Common [facility] bmi 2021-09-21 10:50:00 20.33 kg/m2 [facility] oximetry 2021-09-21 10:50:00 96 % [facility] respiratory rate 2021-09-21 10:50:00 17 /min Comm on [facility] blood pressure 2021-09-21 10:50:00 102 mm[Hg] [facility] - systolic [facility] blood pressure 2021-09-21 10:50:00 68 mm[Hg] [facility] - diastolic [facility] Systolic blood 2019-11-12 16:24:00 96 mm[Hg] Univer [facility] of pressure [facility] Diastolic blood 2019-11-12 16:24:00 62 mm[Hg] Unive rsity of pressure [facility] Heart rate 2019-11-12 16:24:00 79 /min [facility] Body temperature 2019-11-12 16:24:00 [facility]11 [facility] 2019-11-12 16:24:00 18 /min [facility] height 2019-11-12 16:24:00 165.1 cm [facility] Body weight 2019-11-12 16:24:00 65.772 kg [facility] BMI 2019-11-12 16:24:00 24.13 kg/m2 [facility] Oxygen saturation in 2019-11-12 16:24:00 98 /min [facility] blood by [facility] Pulse oximetry Branch Systolic blood 2019-11-12 16:24:00 96 mm[Hg] Univer sity of pressure [facility] Diastolic blood 2019-11-12 16:24:00 62 mm[Hg] Unive rsity of pressure [facility] Heart rate 2019-11-12 16:24:00 79 /min [facility] Body temperature 2019-11-12 16:24:00 36.11 Mariella [facility] 2019-11-12 16:24:00 18 /min [facility] Body height 2019-11-12 16:24:00 165.1 cm [facility] Body weight 2019-11-12 16:24:00 [facility] BMI 2019-11-12 16:24:00 24.13 kg/m2 [facility] Oxygen saturation in 2019-11-12 16:24:00 98 /min [facility] Arterial blood by [facility] Pulse oximetry Branch Body weight 2022-01-12 17:57:00 56.7 kg [facility] BMI 2022-01-12 17:57:00 20.80 kg/m2 [facility] Systolic blood 2022-01-02 19:07:00 106 mm[Hg] Method ist [facility] pressure Diastolic blood 2022-01-02 19:07:00 60 mm[Hg] [facility] pressure Heart rate 2022-01-02 19:07:00 90 /min [facility] Body height 2022-01-02 19:07:00 165.1 cm [facility] Procedures Procedure Date / Time Performing Clinician Source Performed COLONOSCOPY-EXTERNAL MCE 2022-02-07 18:27:41 Nisreen Christine [facility] CT ABDOMEN WWO CONTRAST 2022-01-12 20:11:21 Nisreen Christine [facility] PELVIS W CONTRAST COMPREHENSIVE METABOLIC 2022-01-02 20:20:00 Nisreen Christine [facility] PANEL CBC HEMOGRAM 2022-01-02 20:20:00 Nisreen Christine ospital Plan of Care Planned Activity Planned Date Details Comments Source Future Scheduled 2022-03-24 HEPATITIS B VACCINES [facility] Test 19:19:34 (1 of 3 - 3-dose series) [code = HEPATITIS B VACCINES (1 of 3 - 3-dose series)] Future Scheduled 2022-03-24 Pneumococcal Vaccine: [facility] Test 19:19:34 Pediatrics (0 to 5 Years) and At-Risk Patients (6 to 64 Years) (1 - PCV) [code = Pneumococcal Vaccine: Pediatrics (0 to 5 Years) and At-Risk Patients (6 to 64 Years) (1 - PCV)] Future Scheduled 2022-03-24 Hepatitis C screening [facility] Test 19:19:34 (procedure) [code = 219238375] Future Scheduled 2022-03-24 Screening for [facility] Test 19:19:34 malignant neoplasm of cervix (procedure) [code = 457400286] Future Scheduled 2022-03-24 BREAST CANCER [facility] Test 19:19:34 SCREENING [code = BREAST CANCER SCREENING] Future Scheduled 2022-03-24 SHINGLES VACCINES (1 [facility] Test 19:19:34 of 2) [code = SHINGLES VACCINES (1 of 2)] Future Scheduled 2022-03-24 COVID-19 VACCINE (4 - [facility] Test 19:19:34 Booster for Moderna series) [code = COVID-19 VACCINE (4 - Booster for Moderna series)] Future Scheduled 2022-03-24 INFLUENZA VACCINE Method [facility] Test 19:19:34 [code = INFLUENZA VACCINE] Future Scheduled 2022-03-24 COLONOSCOPY SCREENING [facility] Test 19:19:34 [code = COLONOSCOPY SCREENING] Future Scheduled 2021-11-23 COVID-19 Vaccination [facility] Test 07:15:38 (#1) [code = COVID-19 And emmy Cancer Vaccination (#1)] Center Encounters Start End Encounter Admission Attending Care Care Encounter Source Date/Time Date/Time Type Type Clinicians Facility Department ID 2022-03-06 Outpatient Hartman [facility] [id number] Common 15:13:01 [facility] 2022-01-30 Outpatient Hartman, [facility] [id number] Common 10:22:01 [facility] 2021-12-09 Outpatient Hartman, [facility]LML[facility] [id number] Common 07:13:00 [facility] 2021-09-21 Outpatient Hartman, STLMLC STLMLC [id number] Common 10:48:04 [facility] 2020-10-27 Outpatient SYSTEM, MDA ROBERTO [id number] 08:22:21 PROVIDER Erick nuñez 2020-07-29 Outpatient SYSTEM, ROBERTO MEJIA [id number] 12:07:31 PROVIDER Erick nuñez 2022-03-08 2022-03-08 OFFICE STLMLC STLMLC [id number] Co mmon 00:00:00 00:00:00 VISIT [facility] PT - [facility] LEVEL 4 [facility] 2022-03-06 2022-03-06 (WEB) STLMLC STLMLC [id number] Co mmon 00:00:00 00:00:00 [facility] 2022-03-06 2022-03-06 (WEB) STLMLC STLMLC [id number] Co mmon 00:00:00 00:00:00 [facility] 2022-02-07 2022-02-07 Documentat Nanci, 1.2.840.1 [id number] Methodi 00:00:00 00:00:00 [address] 3.430.2.7 Hospit a .3.508393 l .8 2022-02-06 2022-02-06 Telephone Laura 1.2.840.1 [id number] Methodi 00:00:00 00:00:[address] 3.430.2.7 Hospit a .3.046732 l .8 2022-01-30 2022-01-30 OFFICE STLMLC STLMLC [id number] Co mmon 00:00:00 00:00:00 VISIT EST Spir it PT LEVEL 3 - [facility] 2022-01-30 2022-01-30 (WEB) STLMLC STLMLC [id number] Co mmon 00:00:00 00:00:00 [facility] 2022-01-27 2022-01-27 (TEL) STLMLC STLMLC [id number] Co mmon 00:00:00 00:00:00 [facility] 2022-01-26 2022-01-26 (WEB) STLMLC STLMLC [id number] Co mmon 00:00:00 00:00:00 [facility] 2022-01-26 2022-01-26 OFFICE STLMLC STLMLC [id number] Co mmon 00:00:00 00:00:00 VISIT [facility] LEVEL 2 [facility] 2022-01-26 2022-01-26 (TEL) STLMLC STLMLC [id number] Co mmon 00:00:00 00:00:00 [facility] 2022-01-26 2022-01-26 Orders Laura, 1.2.840.1 [id number] Methodi 00:00:00 00:00:00 Only Meri Ceron 10282.1.[address] 3.430.2.7 Hospit a .3.715388 l .8 2022-01-25 2022-01-25 Orders Nanci, 1.2.840.1 [id number] Methodi 00:00:00 00:00:00 Only Nisreen Roach 42685.1.[address] 3.430.2.7 Hospit a .3.647709 l .8 2022-01-25 2022-01-25 Telephone Nanci, 1.2.840.1 [id number] [id number] Methodi 00:00:00 00:00:[address] 3.430.2.7 Hospit a .3.536426 l .8 2022-01-12 2022-01-12 [facility] Nanci 1.2.840.1 [id number] Methodi 13:30:00 23:59:00 Encounter Nisreen Roach 31714.1.1 351 s t 3.430.2.7 Hospit a .3.556069 l .8 2022-01-12 2022-01-12 [facility] [id number] [place] 00:00:00 00:00:00 [address]IS[address] 2022-01-12 2022-01-12 Travel 1.2.840.1 1.2.471.481 [id number] Methodi 00:00:00 00:00:[address] 3.430.2.7 0.2.7.3.698 Ho spita .3.127534 084.8 l .8 2022-01-06 2022-01-06 (TEL) STLMLC STLMLC [id number] Co mmon 00:00:00 00:00:00 [facility] 2022-01-04 2022-01-04 Travel 1.2.840.1 1.2.970.127 3025 [id number] Methodi 00:00:00 00:00:[address] 3.430.2.7 0.2.7.3.698 Ho spita .3.648279 084.8 l .8 2022-01-03 2022-01-03 Documentat Nanci, 1.2.840.1 [id number] Methodi 00:00:00 00:00:00 ion Nisreen Roach 48805.1.[address] 3.430.2.7 Hospit a .3.992686 l .8 2022-01-02 2022-01-02 Lab Nanci, 1.2.840.1 [id number] Methodi 15:15:00 15:20:00 [address] Roc[address] 3.430.2.7 Hospit a .3.153503 l .8 2022-01-02 2022-01-02 Office Nanci, 1.2.840.1 [id number] Methodi 14:30:00 15:11:28 Visit Nisreen Roach 44217.1.[address] 3.430.2.7 Hospit a .3.378360 l .8 2022-01-02 2022-01-02 [facility] [id number] [place] 00:00:00 00:00:00 [address]EN [address] 2022-01-02 2022-01-02 [facility] [id number] [place] 00:00:00 00:00:[address] 2022-01-02 2022-01-02 Travel 1.2.840.1 1.2.492.465 [id number] [id number] Methodi 00:00:00 00:00:[address] 3.430.2.7 0.2.7.3.698 Ho spita .3.176182 084.8 l .8 2021-12-22 2021-12-22 (WEB) STLMLC STLMLC [id number] Co mmon 00:00:00 00:00:00 [facility] 2021-12-14 2021-12-14 (WEB) STLMLC STLMLC [id number] Co mmon 00:00:00 00:00:00 [facility] 2021-12-08 2021-12-08 (TEL) STLMLC STLMLC [id number] Co mmon 00:00:00 00:00:00 [facility] 2021-12-08 2021-12-08 OFFICE STLMLC STLMLC [id number] Co mmon 00:00:00 00:00:00 VISIT [facility] PT - CHI LEVEL 2 [facility] 2021-12-07 2021-12-07 (WEB) STLMLC STLMLC [id number] Co mmon 00:00:00 00:00:00 [facility] 2021-12-06 2021-12-06 OFFICE STLMLC STLMLC [id number] Co mmon 00:00:00 00:00:00 VISIT [facility] PT - CHI LEVEL 4 [facility] 2021-12-05 2021-12-05 Telephone Laura, 1.2.840.1 [id number] Methodi 00:00:00 00:00:[address] 3.430.2.7 Hospit a .3.236549 l .8 2021-12-02 2021-12-02 (WEB) STLMLC STLMLC [id number] Co mmon 00:00:00 00:00:00 [facility] 2021-09-21 2021-09-21 (WELLNESS) STLMLC STLMLC [id number] Common 00:00:00 00:00:00 Wellness Spiri t [facility] 2021-09-21 2021-09-21 (TEL) STLMLC STLMLC [id number] Co mmon 00:00:00 00:00:00 [facility] 2020-12-22 2020-12-22 Outpatient CATARINO NICKERSON 101 [id number] Susan 00:00:00 00:00:00 Seybol ofelia 2019-11-14 2019-11-14 Telephone ROSALIA Fox 1.2.545.523 [id number] 0564 00:00:00 00:00:00 Ximena RADHA 350.1.13.10 [facility] 4.2.7.2.686 [id number] 2019-11-14 2019-11-14 ROSALIA Chacko 1.2.840.114 [id number] 00:00:00 00:00:00 (Out) Ximena RADHA 350.1.13.10 HOSPITAL 4.2.7.2.686 [id number] 019 2019-11-14 2019-11-14 ROSALIA Martins 1.2.623.311 [id number] Univers 00:00:00 00:00:00 Ximena RADHA 350.1.13.10 it y of HOSPITAL 4.2.7.2.686 Jose M as [id number] [facility] [address] 2019-11-14 2019-11-14 ROSALIA Chacko 1.2.840.114 [id number] Univers 00:00:00 00:00:00 (Out) Ximena RADHA 350.1.13.10 it y of HOSPITAL 4.2.7.2.686 Jose M as [id number] [facility] 0[address] Branch 2019-11-12 2019-11-12 Urgent Pob1, Acute [facility] 1.2.840.114 [id number] 11:16:03 11:56:38 [facility] 350.1.13.10 [place] 4.2.7.2.[id number] [facility] Office [address] 2019-11-12 2019-11-12 Urgent Pob1, Acute Care [facility] 1. 2.840.114 [id number] Univers 11:16:03 11:56:[facility].1.13.10 it[facility] of [place] 4.2.7.2.686 Jose M as Professio [id number] [place] [address] Branch Office [address] 2019-11-12 2019-11-12 Outpatient R [facility] [id number] Univers 11:20:00 [facility]:20[facility] Test Description Test Time Test Comments Results Result Comments Source Comprehensive metabolic panel 2022-01-03 16:49:00 Test Item Value Reference Range Interpretation Comme nts Glucose (test code = 79 mg/dL 65-99 Fastin g reference 2345-7) interval BUN (test code = 3094-0) 15 mg/dL 7-25 Creatinine (test code = 0.95 mg/dL 0.50-1.03 2160-0) eGFR (test code = 8257) See_Comment The eGFR is based on the CKD-EPI 202 1 equation. To ca lculate the new eGFR fr om a previous Creati nine or Cystatin Cresul t, go to https://www.kid jerry.org /professionals/ kdoqi/g fr%5Fcalculator [Automated mess age] The system [facility] generated this result transmitted ref erence range: > OR = 6 0 mL/min/1.73m2. The reference range was not used to int erpret this result as normal/abnormal . BUN/creatinine ratio (test NOT APPLICABLE See_Comment [Automated message] code = 3097-3) The system [facility] generated this result transmitted ref erence range: 6 - 22 ( calc). The reference r ya was not used to interpret this result as normal/abnor mal. Sodium (test code = 143 mmol/L 298-790 5564-2) Potassium (test code = 5.0 mmol/L 3.5-5.3 2823-3) Chloride (test code = 112 mmol/L 98-110 H 2074-0) CO2 (test code = 2027-9) 20 mmol/L 20-32 Calcium (test code = 9.4 mg/dL 8.6-10.4 59694-2) Protein (test code = 6.5 g/dL 6.1-8.1 2885-2) Albumin, S (test code = 4.1 g/dL 3.6-5.1 1751-7) Globulin, total (test code See_Comment [Automated message] = 02739-3) The system whic h generated this result transmitted ref erence range: 1.9 - 3. 7 g/dL (calc). The ref erence range was not u sed to interpret this result as normal/abnor mal. Albumin/globulin ratio See_Comment [Aut omated message] (test code = 1759-0) The sys tem which generated this result transmitted ref erence range: 1.0 - 2. 5 (calc). The ref erence range was not u sed to interpret this result as normal/abnor mal. Total bilirubin (test code 0.2 mg/dL 0.2-1.2 = 1974-) Alkaline phosphatase (test 72 U/L 37-153 code = 6768-6) AST (test code = 1920-8) 17 U/L 10-35 ALT (test code = 1742-6) 21 U/L 6-29 RAC (test code = RAC) Performing Organization Information: Site ID: [facility] Name: [facility] Address: [address] [place] [id number] Director: Madi Barrett Lab Interpretation (test Abnormal code = 23793-1) [facility] [id number] 16:49:00 Test Item Value Reference Range Interpretation Comments WBC (test code = See_Comment [Automated 0184-2) message] The system which generated this result transmitted reference range : 3.8 - 10.8 Thousand/uL. Th e reference range was not used to interpret this result as normal/abnormal . RBC (test code = See_Comment L [Automated 474-8) message] The system which generated this result transmitted reference range : 3.80 - 5.10 Million/uL. The reference range was not used to interpret this result as normal/abnormal . HGB (test code = 12.3 g/dL 11.7-15.5 718-7) HCT (test code = 35.5 % 35.0-45.0 4544-3) MCV (test code = 102.6 fL 80.0-100.0 H 787-2) MCH (test code = 35.5 pg 27.0-33.0 H 785-6) MCHC (test code = 34.6 g/dL 32.0-36.0 786-4) RDW (test code = 11.6 % 11.0-15.0 788-0) Platelet count (test See_Comment [Autom ated code = 777-3) message] The system which generated this result transmitted reference range : 140 - 400 Thousand/uL. Th e reference range was not used to interpret this result as normal/abnormal . MPV (test code = 10.1 fL 7.5-12.5 776-5) RAC (test code = Performing RAC) Organization Information: Site ID: RGA Name: [facility] Address: [address] [place] [id number] Director: Madi Barrett Lab Interpretation Abnormal (test code = 88605-2) [facility]
--- NOTE | 2022-04-11 13:55 | RAD REPORT ---
EXAM DESCRIPTION: RAD - Chest Single View - 04/11/2022 1:47 pm CLINICAL HISTORY: CHEST PAIN COMPARISON: Chest Pa And Lat (2 Views) dated 01/27/2021; Chest Pa And Lat (2 Views) dated 04/14/2019; Chest Single View dated 02/17/2019; Chest Pa And Lat (2 Views) dated 01/25/2018 FINDINGS: Lines: None. Lungs: No evidence of edema or pneumonia. Pleural: No significant pleural effusions or pneumothorax. Cardiac: The heart size is within normal limits. Mediastinum: Within normal limits. Bones: No acute fractures. Other: None IMPRESSION: No acute cardiopulmonary disease.
[2022-04-11 14:17] LABS: Hematocrit 39.4 % (36.0-45.0); Lymphocytes % 28.7 % (15.3-44.8); MCV 99.5 fL (80-100); MPV 6.4 fL (7.6-11.3); RBC Red Blood Cell Count 3.96 M/uL (3.86-4.86)
[2022-04-11 14:32] LABS: Potassium 4.1 mmol/L (3.5-5.1); Troponin High Sensitivity 5.8 pg/mL (<58.9)
--- NOTE | 2022-04-11 14:40 | EDPHYS ---
Physician Documentation [facility] Name: Sherri De La Garza Age: 56 yrs Sex: Female : 1965 Arrival Date: 04/11/2022 Time: 13:10 Bed 25 Private MD: [facility] ED Physician Paco Woodward HPI: 04/11 13:35 This 56 yrs old Female presents to ER via Ambulatory with complaints of jl9 Palpitations, Chest Pressure the last 2 nights. No pain currently. 13:35 The patient presents with a history of heart racing. jl9 Historical: - Allergies: 13:16 No Known Allergies; eh3 - PMHx: 13:16 Asthma; eh3 - PSHx: 13:16 Total abdominal hysterectomy; Cholecystectomy; eh3 - Immunization history:: Adult Immunizations up to date, Client reports receiving the 2nd dose of the Covid vaccine. - Social history:: Smoking status: Reported history of juuling and/or vaping. Patient/guardian denies using alcohol. ROS: 13:37 Constitutional: Negative for fever, chills, and weight loss, Eyes: Negative for injury, jl9 pain, redness, and discharge, ENT: Negative for injury, pain, and discharge, Neck: Negative for injury, pain, and swelling. 13:37 Respiratory: Negative for shortness of breath, cough, wheezing, and pleuritic chest pain, Abdomen/GI: Negative for abdominal pain, nausea, vomiting, diarrhea, and constipation, Back: Negative for injury and pain, : Negative for injury, bleeding, discharge, and swelling, MS/Extremity: Negative for injury and deformity, Skin: Negative for injury, rash, and discoloration, Neuro: Negative for headache, weakness, numbness, tingling, and seizure, Psych: Negative for depression, anxiety, suicide ideation, homicidal ideation, and hallucinations, Allergy/Immunology: Negative for hives, rash, and allergies, Endocrine: Negative for neck swelling, polydipsia, polyuria, polyphagia, and marked weight changes, Hematologic/Lymphatic: Negative for swollen nodes, abnormal bleeding, and unusual bruising. 13:37 Cardiovascular: Positive for chest pain, palpitations. Exam: 13:37 Constitutional: This is a well developed, well nourished patient who is awake, alert, jl9 and in no acute distress. Head/Face: Normocephalic, atraumatic. Eyes: Pupils equal round and reactive to light, extra-ocular motions intact. Lids and lashes normal. Conjunctiva and sclera are non-icteric and not injected. Cornea within normal limits. Periorbital areas with no swelling, redness, or edema. ENT: Mucous membranes moist. Neck: Trachea midline, no thyromegaly or masses palpated, and no cervical lymphadenopathy. Supple, full range of motion without nuchal rigidity, or vertebral point tenderness. No Meningismus. 13:37 Respiratory: Lungs have equal breath sounds bilaterally, clear to auscultation and percussion. No rales, rhonchi or wheezes noted. No increased work of breathing, no retractions or nasal flaring. Abdomen/GI: Soft, non-tender, with normal bowel sounds. No distension or tympany. No guarding or rebound. No evidence of tenderness throughout. Back: No spinal tenderness. No costovertebral tenderness. Full range of motion. Skin: Warm, dry with normal turgor. Normal color with no rashes, no lesions, and no evidence of cellulitis. MS/ Extremity: Pulses equal, no cyanosis. Neurovascular intact. Full, normal range of motion. Neuro: Awake and alert, GCS 15, oriented to person, place, time, and situation. Cranial nerves II-XII grossly intact. Motor strength 5/5 in all extremities. Sensory grossly intact. Cerebellar exam normal. Normal gait. Psych: Awake, alert, with orientation to person, place and time. Behavior, mood, and affect are within normal limits. 13:37 Chest/axilla: Inspection: normal, Palpation: is normal, Axilla: are normal. 13:37 Cardiovascular: Rate: normal, Rhythm: regular, Pulses: Pulses are 2+ in . Heart sounds: normal, Edema: is not appreciated, JVD: is not appreciated. Vital Signs: 13:15 BP 152 / 136; Pulse 86; Resp 18; Temp 98.4(TE); Pulse Ox 100% on R/A; Weight 56.7 kg; eh3 Height 5 ft. 5 in. (165.10 cm); Pain 5/10; 13:15 BP 139 / 66; Pulse 76; Resp 20; Pulse Ox 99% on R/A; eh3 13:17 BP 136 / 66; eh3 14:15 BP 111 / 59; Pulse 64; Resp 18; Pulse Ox 100% on R/A; eh3 13:15 Body Mass Index 20.80 (56.70 kg, 165.10 cm) 3 MDM: 13:14 Patient medically screened. [facility] 13:37 Data reviewed: vital signs, nurses notes. [facility] 13:42 Test interpretation: by ED physician or midlevel provider: ECG. [facility] 14:38 Counseling: I had a detailed discussion with the patient and/or guardian regarding: the [facility] historical points, exam findings, and any diagnostic results supporting the discharge/admit diagnosis, lab results, radiology results, the need for outpatient follow up, to return to the emergency department if symptoms worsen or persist or if there are any questions or concerns that arise at home. 04/11 13:17 Order name: Basic Metabolic Panel; Complete Time: 14:38 [facility] 04/11 13:17 Order name: CBC with Diff; Complete Time: 14:38 [facility] 04/11 13:17 Order name: Troponin HS; Complete Time: 14:38 [facility] 04/11 13:17 Order name: XRAY Chest (1 view); Complete Time: 13:59 [facility] 04/11 13:17 Order name: EKG; Complete Time: 13:17 [facility] 04/11 13:17 Order name: Cardiac monitoring; Complete Time: 13:17 [facility] 04/11 13:17 Order name: EKG - Nurse/Tech; Complete Time: 13:17 [facility] 04/11 13:17 Order name: IV Saline Lock; Complete Time: 14:07 [facility] 04/11 13:17 Order name: Labs collected and sent; Complete Time: 14:07 [facility] 04/11 13:17 Order name: O2 Per Protocol; Complete Time: 13:18 [facility] 04/11 13:17 Order name: O2 Sat Monitoring; Complete Time: 13:18 [facility] Administered Medications: 13:27 Drug: Aspirin Chewable Tablet 324 mg Route: PO; 3 13:57 Follow up: Response: No adverse reaction 3 15:02 Drug: Metoprolol 12.5 mg Route: PO; 3 15:06 Follow up: Response: No change in condition 3 Disposition Summary: 04/11/22 14:39 Discharge Ordered Location: Home [facility] Condition: Stable 9 Diagnosis - Chest pain, unspecified jl9 - Palpitations jl9 Followup: jl9 - With: Private Physician - When: 1 - 2 days - Reason: Recheck today's complaints, Continuance of care, Re-evaluation by your physician Discharge Instructions: - Discharge Summary Sheet jl9 - Nonspecific Chest Pain, Adult, Oeqq-[id number]-Fqfa jl9 - Palpitations, Leow-rh-Fraj jl9 Forms: - Medication Reconciliation Form jl9 - Thank You Letter jl9 - Antibiotic Education jl9 - Prescription Opioid Use jl9 Prescriptions: - propranolol 10 mg Oral tablet - take 1 tablet by ORAL route every 8 hours As needed; 30 tablet; Refills: 0, jl9 Product Selection Permitted Signatures: Dispatcher [employer] Renetta Thomas RN RN 3 Naveen Gibson jl9 Corrections: (The following items were deleted from the chart) 13:16 13:16 Allergies: Aspirin; [place] [id number] 13:16 13:16 PSHx: None; [place] [id number] 14:38 13:35 This 56 yrs old Female presents to ER via Ambulatory with complaints of jl9 Palpitations, Chest Pressure the last 2 nights. . jl9
--- NOTE | 2022-04-11 14:40 | ER ---
Nurse's Notes [facility] Name: Sherri De La Garza Age: 56 yrs Sex: Female : 1965 Arrival Date: 04/11/2022 Time: 13:10 Bed 25 Private MD: Tanmay Hartman Diagnosis: Chest pain, unspecified;Palpitations Presentation: 04/11 13:15 Chief complaint: Patient states: Chest pain began 2 days ago - mostly at night where I eh3 could feel it beating heavy. Today the chest pain began to get worse. Coronavirus screen: At this time, the client does not indicate any symptoms associated with coronavirus-19. Ebola Screen: No symptoms or risks identified at this time. Initial Sepsis Screen: Does the patient meet any 2 criteria? No. Patient's initial sepsis screen is negative. Does the patient have a suspected source of infection? No. Patient's initial sepsis screen is negative. Risk Assessment: Do you want to hurt yourself or someone else? Patient reports no desire to harm self or others. Onset of symptoms was April 11, 2022. 13:15 Method Of Arrival: Ambulatory 3 13:15 Acuity: NICOLE 3 eh3 Triage Assessment: 13:16 General: Appears in no apparent distress. comfortable, Behavior is calm, cooperative, eh3 appropriate for age. Pain: Complains of pain in chest Pain does not radiate. Pain currently is 5 out of 10 on a pain scale. EENT: No signs and/or symptoms were reported regarding the EENT system. Neuro: Level of Consciousness is awake, alert, obeys commands, Oriented to person, place, time, situation. Cardiovascular: Capillary refill < 3 seconds Patient's skin is warm and dry. Respiratory: Airway is patent Respiratory effort is even, unlabored. GI: Abdomen is flat, non-distended. : No signs and/or symptoms were reported regarding the genitourinary system. Derm: No signs and/or symptoms reported regarding the dermatologic system. Musculoskeletal: No signs and/or symptoms reported regarding the musculoskeletal system. Historical: - Allergies: 13:16 No Known Allergies; eh3 - PMHx: 13:16 Asthma; eh3 - PSHx: 13:16 Total abdominal hysterectomy; Cholecystectomy; eh3 - Immunization history:: Adult Immunizations up to date, Client reports receiving the 2nd dose of the Covid vaccine. - Social history:: Smoking status: Reported history of juuling and/or vaping. Patient/guardian denies using alcohol. Screenin:15 Abuse screen: Denies threats or abuse. Denies injuries from another. Nutritional eh3 screening: No deficits noted. Tuberculosis screening: No symptoms or risk factors identified. Fall Risk None identified. Assessment: 13:15 General: Appears distressed, uncomfortable, Behavior is cooperative, appropriate for 1 age, anxious. Pain: Complains of pain in xiphoid area and mid-sternal area Pain does not radiate. Pain currently is 7 out of 10 on a pain scale. Quality of pain is described as pressure, Pain began 2-3 days ago. Is continuous, Alleviated by nothing. Noted to be grimacing. Neuro: Level of Consciousness is awake, alert, obeys commands, Oriented to person, place, time, situation. Cardiovascular: Capillary refill < 3 seconds Patient's skin is warm and dry. Respiratory: Reports shortness of breath at rest Airway is patent Respiratory effort is even, unlabored, Respiratory pattern is regular, symmetrical. GI: No signs and/or symptoms were reported involving the gastrointestinal system. Abdomen is flat, non-distended. : No signs and/or symptoms were reported regarding the genitourinary system. EENT: No signs and/or symptoms were reported regarding the EENT system. Derm: No signs and/or symptoms reported regarding the dermatologic system. Musculoskeletal: No signs and/or symptoms reported regarding the musculoskeletal system. Circulation, motion, and sensation intact. Range of motion: intact in all extremities. 14:15 Reassessment: Patient appears in no apparent distress at this time. Patient and/or 3 family updated on plan of care and expected duration. Pain level reassessed. Patient is alert, oriented x 3, equal unlabored respirations, skin warm/dry/pink. Vital Signs: 13:15 BP 152 / 136; Pulse 86; Resp 18; Temp 98.4(TE); Pulse Ox 100% on R/A; Weight 56.7 kg; eh3 Height 5 ft. 5 in. (165.10 cm); Pain 5/10; 13:15 BP 139 / 66; Pulse 76; Resp 20; Pulse Ox 99% on R/A; eh3 13:17 BP 136 / 66; eh3 14:15 BP 111 / 59; Pulse 64; Resp 18; Pulse Ox 100% on R/A; eh3 13:15 Body Mass Index 20.80 (56.70 kg, 165.10 cm) eh3 Vitals: 13:15 Cardiac Rhythm Assessment Sinus rhythm. eh3 ED Course: 13:10 Patient arrived in ED. mr 13:11 Tanmay Hartman DO is Private Physician. mr 13:13 Renetta Iraheta, RN is Primary Nurse. eh3 13:14 Naveen Gibson is PHCP. jl9 13:14 Paco Woodward MD is Attending Physician. jl9 13:15 Patient has correct armband on for positive identification. Placed in gown. Bed in low eh3 position. Call light in reach. Side rails up X2. Client placed on continuous cardiac and pulse oximetry monitoring. NIBP monitoring applied. Door closed. Noise minimized. Warm blanket given. 13:15 Patient maintains SpO2 saturation greater than 95% on room air. eh3 13:16 Triage completed. eh3 13:16 Arm band placed on right wrist. eh3 13:30 Missed attempt(s): 20 gauge in left forearm. Bleeding controlled, band aid applied, eh3 catheter tip intact. 13:49 XRAY Chest (1 view) In Process Unspecified. EDMS 14:07 Inserted saline lock: 20 gauge in right forearm, using aseptic technique. Blood iw collected. 14:43 No provider procedures requiring assistance completed. eh3 14:43 IV discontinued, intact, bleeding controlled, No redness/swelling at site. Pressure eh3 dressing applied. Administered Medications: 13:27 Drug: Aspirin Chewable Tablet 324 mg Route: PO; eh3 13:57 Follow up: Response: No adverse reaction eh3 15:02 Drug: Metoprolol 12.5 mg Route: PO; eh3 15:06 Follow up: Response: No change in condition eh3 Medication: 14:42 VIS not applicable for this client. eh3 Outcome: 14:39 Discharge ordered by . jl9 15:06 Discharged to home ambulatory. eh3 15:06 Condition: stable 15:06 Discharge instructions given to patient, Instructed on discharge instructions, follow up and referral plans. medication usage, Demonstrated understanding of instructions, follow-up care, medications, Prescriptions given X 1. 15:07 Patient left the ED. eh3 Signatures: Dispatcher [employer] Sunita Keen mr Libertad Álvarez, RN RN iw Renetta Iraheta RN RN 3 Naveen Gibson 9 Corrections: (The following items were deleted from the chart) 13:16 Allergies: Aspirin; 3 [facility] 13:16 PSHx: None; [place] [id number]
[2022-04-11] MEDS ORDERED: METOPROLOL TAR 25 MG TAB ONE (15:01)
[2022-04-11 15:24] VITALS: TEMP 98.4; O2SAT 100
[2022-04-11 15:39] VITALS: BP 111/59
--- NOTE | 2022-04-12 11:36 | EKG ---
Test Date: 2022-04-11 Test Time: 13:19:59 Client Relationship Executive: LIBAN MEASUREMENT RESULTS: Intervals: Rate: 74 ID: [id number] QRSD: 92 QT: 380 QTc: 421 [place]: P: -13 ID: [id number] QRS: -16 T: -12 INTERPRETIVE STATEMENTS: Normal sinus rhythm Voltage criteria for left ventricular hypertrophy Inferior infarct, age undetermined Abnormal ECG Compared to ECG 02/17/2019 17:04:12 Left ventricular hypertrophy now present Myocardial infarct finding now present Electronically Signed On 04-12-22 11:34:37 ASBESTOS MICROSCOPIST by Newton Watt
== END 2022-04-11 15:07 | disposition home or self-care (01) ==
LOC: ER 13:09
DX: R07.89 Other chest pain (principal); R00.2 Palpitations
CPT/HCPCS: 36415; 71045; 80048; 84484; 85025; 93005; 99284

== ENCOUNTER 2022-04-17 10:04 | Observation (INO) | payer OTHER ==
--- OUTSIDE RECORDS SUMMARY | 2022-04-17 10:12 | XMS REPORT | Clinical Summary ---
:1965 Author Organization [facility] Address [address] [place] [id number] Care Team Providers Name Role Phone Unavailable [...] Vaccination (#1) 03/15/1966 Results Not on fileafter 04/17/2021
--- OUTSIDE RECORDS SUMMARY | 2022-04-17 10:15 | XMS REPORT | Continuity of Care Document ---
:1965 Author Organization [facility] t Address [address] [place] [address] Care Team Providers Name Role Phone Asked, No Pcp Primary Care Physician Unavailable Tanmay Hartman Attending Clinician Unavailable SYSTEM, PROVIDER NOT IN Attending Clinician Unavailable Nanci GARICA, Tarun Roach Attending Clinician Meri Sanchez MA Attending Clinician Unavailable CATARINO NICKERSON Attending Clinician Unavailable Ximena Fox RN Attending Clinician Unavailable [facility], [facility] Attending Clinician Unavailable Rosalia Martinez PA-C Attending Clinician Payers Payer Name Policy Type Policy Number Effective Date Expiration Date S karin AETNA 53 [id number] 2011 [facility] [place] 53 [id number] 2021 [facility] - 00[facility] [place] 2 [id number] 2018 00:00:00 Problems Condition Condition Condition Status Onset Resolution Last Treating Co mments Source Name Details Category Date Date Treatment Clinician Date Ex-smoker Ex-smoker Disease Active Uni vers for less for less 4-16 ity of than 1 than 1 00:00: year year 00 MD [facility] No known No known Disease Unive rs active active ity of problems problems [place] [facility] [id number] Tobacco Problem Commo n use Spirit disorder - [facility] [id number] PUD Problem Common (peptic Spirit ulcer - [facility]I disease) [facility] [id number] Mixed Problem Common hyperlipid Spirit emia - [facility] [id number] Fibromyalg Problem Co mmon ia Spirit - [facility] [id number] Mild Problem Common intermitte Spirit nt asthma - [facility] without St complicati [facility] on [facility] [id number] CORA Problem Common (generaliz Spirit ed anxiety - CHI disorder) [facility] [id number] GERD Problem Common without Spirit esophagiti - [facility] s [facility] Insomnia Insomnia Problem Commo n Spirit - [facility] [id number] Gastritis, Problem Comm on presence Spirit of - [facility] bleeding [facility] d chronicity , unspecifie d gastritis type [id number] Osteoarthr Problem Co mmon itis Spirit involving - [facility] multiple [facility] joints on [facility] both sides Medica [facility] body [facility] [id number] Migraine Problem Comm on without Spirit aura and - [facility] without [facility] status [facility] migrainos[facility] s, not Center intractabl e [id number] Lumbago Problem Commo n with Spirit sciatica, - [facility]I unspecifie St d side [facility] [id number] Other Problem Common chronic Spirit pain - [facility] Allergies, Adverse Reactions, Alerts Allergy Allergy Status [...] Stop Date Source Maternal grandfather Colon cancer [facility] Maternal grandfather Liver cancer [facility] Maternal grandfather Pancreatic cancer [facility] Maternal grandmother Ulcerative colitis [facility] Natural mother Ulcerative colitis [facility] Natural sister Irritable bowel [facility] Social History Social Habit Start Date Stop Date Quantity Comments Source History SDIL University o f Alcohol Std Drinks [place] [facility] History SDIL [facility] o f Alcohol Binge [place] [facility] History of Tobacco Current Smoker [facility] - [facility] Alcohol intake 2022-02-07 2022-02-07 [facility] 00:00:00 00:00:00 non-drinker Hospital (finding) Cigarettes smoked 2022-01-02 2022-01-[address] current (pack per 00:00:00 00:00:00 Hospita l day) - Reported Tobacco use and 2022-01-02 2022-01-02 Smokeless [facility] exposure 00:00:00 00:00:00 tobacco non-user Hospital Cigarette 2022-01-02 2022-01-02 [facility] pack-years 00:00:00 00:00:00 Hospital Alcohol Comment 2020-07-23 2020-07-23 1-2 drinks year Univ ersity of 00:00:00 00:00:00 [place] MD [facility] History SDOH 2018-11-19 2018-11-19 1 University o f Alcohol Frequency 00:00:00 00:00:00 [facility] edical Branch Sex Assigned At [birth year] [facility] 00:00:00 00:00:00 Hospital Smoking Status Start Date Stop Date Source Current Smoker 2022-03-08 00:00:00 [facility] Former Smoker 2021-12-02 00:00:00 2021-12-02 00:00:00 [facility] - [facility] Medications Ordered Filled Start Stop Current Ordering [...] pirit one) one) 00:00: - [facility] [address] [facility] Kenalog Kenalog 2021-05 No 40mg Common (Triamcinol (Triamcinol 0-19 S pirit one) one) 00:00: - [facility] [address] [facility] Cyclobenzap Cyclobenzap 2021-05 No 1{table QD Cyclobenza rine HCl 10 rine HCl 10 0-19 t_at_be sudha HCl MG MG 00:00: dtime_a 10 MG 00 s_neede d} Kenalog Kenalog 2021-05 No 40mg Common (Triamcinol (Triamcinol 0-19 S pirit one) one) 00:00: - [facility] [address] [facility] Cyclobenzap Cyclobenzap 2021-05 No 1{table QD Cyclobenza rine HCl 10 rine HCl 10 0-19 t_at_be sudha HCl MG MG 00:00: dtime_a 10 MG 00 s_neede d} Kenalog Kenalog 2021-05 No 40mg Common (Triamcinol (Triamcinol 0-19 S pirit one) one) 00:00: - [facility] [address] [facility] Cyclobenzap Cyclobenzap 2021-05 No 1{table QD Cyclobenza rine HCl 10 rine HCl 10 0-19 t_at_be sudha HCl MG MG 00:00: dtime_a 10 MG 00 s_neede d} Kenalog Kenalog 2021-05 No 40mg Common (Triamcinol (Triamcinol 0-19 S pirit one) one) 00:00: - [facility] [address] [facility] Kenalog Kenalog 2021-05 No 40mg Common (Triamcinol (Triamcinol 0-19 S pirit one) one) 00:00: - [facility] [address] [facility] Tylenol # 3 Tylenol # 3 2021-05- [...] 2 (two) times a day before meals. dicyclomine Yes 10mg Q.5D Take 1 Meth bel (BENTYL) 10 9-[address] MG capsule 00:00: (10 mg Hospi ta 00 total) by l mouth 2 (two) times a day before meals. sod 2021- No 160mL Q.5D Take 160 [facility] picosulf-ma 01-25- mL by st g ox-citric 00:00: 04:59 mouth 2 Ho spita ac 00 :00 (two) l (Clenpiq) times a 10 mg-3.5 day for 1 gram -12 day. To be gram/160 mL taken as solution directed. sod 2021- No 160mL Q.5D Take 160 [facility] picosulf-ma 01-25- mL by st g ox-citric 00:00: 04:59 mouth 2 Ho spita ac 00 :00 (two) l (Clenpiq) times a 10 mg-3.5 day for 1 gram -12 day. To be gram/160 mL taken as solution directed. Daniel Valles No 1{table QD Ambien 10 MG MG 7-27 t_at_be MG 00:00: dtime_a 00 s_neede d} Ambien 10 Daniel 10 No 1{table QD Ambien 10 MG MG 7-27 t_at_be MG 00:00: dtime_a 00 s_neede d} Daniel Valles No 1{table QD Ambien 10 MG MG 7-27 t_at_be MG 00:00: dtime_a 00 s_neede d} Daniel 10 Daniel 10 No 1{table QD Ambien 10 MG MG 7-27 t_at_be MG 00:00: dtime_a 00 s_neede d} Daniel Sanchez 10 No 1{table QD Ambien 10 MG MG 7-27 t_at_be MG 00:00: dtime_a 00 s_neede d} Daniel Valles No 1{table QD Ambien 10 MG MG 7-27 t_at_be MG 00:00: dtime_a 00 s_neede d} Daniel 10 Daniel 10 No 1{table QD Ambien 10 MG MG 7-27 t_at_be MG 00:00: dtime_a 00 s_neede d} Daniel 10 Daniel 10 No 1{table QD Ambien 10 MG MG 7-27 t_at_be MG 00:00: dtime_a 00 s_neede d} Mirelaien 10 Daniel 10 No 1{table QD Ambien 10 MG MG 7-27 t_at_be MG 00:00: dtime_a 00 s_neede d} Mirelaien 10 Daniel 10 No 1{table QD Ambien 10 MG MG 7-27 t_at_be MG 00:00: dtime_a 00 s_neede d} Daniel Sanchez 10 No 1{table QD Ambien 10 MG [...] st mg tablet 00:00: Hospita 00 l zolpidem Yes [facility] (AMBIEN) 10 7-27 st mg tablet 00:00: Hospita 00 l Rocephin Rocephin 0 No 1000mg Com mon (Ceftriaxon (Ceftriaxon 7-21 S pirit e) e) 00:00: - [facility] [address] [facility] Rocepwin Rocephin 2021-0 No 1000mg Com mon (Ceftriaxon (Ceftriaxon 7-21 S pirit e) e) 00:00: - [facility] [address] [facility] Rocepwin Rocephin 2021-0 No 1000mg Com mon (Ceftriaxon (Ceftriaxon 7-21 S pirit e) e) 00:00: - [facility] [address] [facility] Rocepwin Rocephin 2021-0 No 1000mg Com mon (Ceftriaxon (Ceftriaxon 7-21 S pirit e) e) 00:00: - [facility] [address] [facility] Rocephin Rocephin 2021-0 No 1000mg Com mon (Ceftriaxon (Ceftriaxon 7-21 S pirit e) e) 00:00: - [facility] [address] [facility] Rocepwin Rocephin 2021-0 No 1000mg Com mon (Ceftriaxon (Ceftriaxon 7-21 S pirit e) e) 00:00: - [facility] [address] [facility] Rocephin Rocephin 2021-0 No 1000mg Com mon (Ceftriaxon (Ceftriaxon 7-21 S pirit e) e) 00:00: - [facility] [address] [facility] Rocephin Rocephin 2021-0 No 1000mg Com mon (Ceftriaxon (Ceftriaxon 7-21 S pirit e) e) 00:00: - [facility] [address] [facility] Rocephin Rocephin 2021-0 No 1000mg Com mon (Ceftriaxon (Ceftriaxon 7-21 S pirit e) e) 00:00: - [facility] [address] [facility] Rocephin Rocephin 2021-0 No 1000mg Com mon (Ceftriaxon (Ceftriaxon 7-21 S pirit e) e) 00:00: - [facility] [address] [facility] Rocephin Rocephin 2021-0 No 1000mg Com mon (Ceftriaxon (Ceftriaxon 7-21 S pirit e) e) 00:00: - [facility] [address] [facility] Rocephin Rocephin 2021-0 No 1000mg Com mon (Ceftriaxon (Ceftriaxon 7-21 S pirit e) e) 00:00: - [facility] [address] [facility] Rocephin Rocephin 2021-0 No 1000mg Com mon (Ceftriaxon (Ceftriaxon 7-21 S pirit e) e) 00:00: - [facility] [address] [facility] Rocephin Rocephin 2-0 No 1000mg Com mon (Ceftriaxon (Ceftriaxon 7-21 S pirit e) e) 00:00: - [facility] [address] [facility] Rocephin Rocephin 2021-0 No 1000mg Com mon (Ceftriaxon (Ceftriaxon 7-21 S pirit e) e) 00:00: - [facility] [address] [facility] Rocephin Rocephin 2021-0 No 1000mg Com mon (Ceftriaxon (Ceftriaxon 7-21 S pirit e) e) 00:00: - [facility] [address] [facility] Rocephin Rocephin 2021-0 No 1000mg Com mon (Ceftriaxon (Ceftriaxon 7-21 S pirit e) e) 00:00: - [facility] [address] [facility] Tiffany Allen 2021-0 No 1000mg Com mon (Ceftriaxon (Ceftriaxon 7-21 S pirit e) e) 00:00: - [facility] [address] [facility] Tiffany Allen 2021-0 No 1000mg Com mon (Ceftriaxon (Ceftriaxon 7-21 S pirit e) e) 00:00: - [facility] [address] [facility] Tiffany Allen 2021-0 No 1000mg Com mon (Ceftriaxon (Ceftriaxon 7-21 S pirit e) e) 00:00: - [facility] [address] [facility] Sindy Callahan 0 No 40mg Common (Triamcinol (Triamcinol 7-19 S pirit one) one) 00:00: - [facility] [address] [facility] Sindy Kenalog 0 No 40mg Common (Triamcinol (Triamcinol 7-19 S pirit one) one) 00:00: - [facility] [address] [facility] Kenfrancesco Kenalog 0 No 40mg Common (Triamcinol (Triamcinol 7-19 S pirit one) one) 00:00: - [facility] [address] [facility] Kenfrancesco Kenalog 2021-0 No 40mg Common (Triamcinol (Triamcinol 7-19 S pirit one) one) 00:00: - [facility] [address] [facility] Kenfrancesco Kenalog 2021-0 No 40mg Common (Triamcinol (Triamcinol 7-19 S pirit one) one) 00:00: - [facility] [address] [facility] Kenalog Kenalog 2021-0 No 40mg Common (Triamcinol (Triamcinol 7-19 S pirit one) one) 00:00: - [facility] [address] [facility] Kenfrancesco Kenalog 2021-0 No 40mg Common (Triamcinol (Triamcinol 7-19 S pirit one) one) 00:00: - [facility] [address] [facility] Kenalog Kenalog 2021-0 No 40mg Common (Triamcinol (Triamcinol 7-19 S pirit one) one) 00:00: - [facility] [address] [facility] Kenalog Kenalog 2021-0 No 40mg Common (Triamcinol (Triamcinol 7-19 S pirit one) one) 00:00: - [facility] [address] [facility] Kenalog Kenalog 2021-0 No 40mg Common (Triamcinol (Triamcinol 7-19 S pirit one) one) 00:00: - [facility] [address] [facility] Kenalog Kenalog 2021-0 No 40mg Common (Triamcinol (Triamcinol 7-19 S pirit one) one) 00:00: - [facility] [address] [facility] Kenfrancesco Kenalog 0 No 40mg Common (Triamcinol (Triamcinol 7-19 S pirit one) one) 00:00: - [facility] [address] [facility] Sindy Kenalog 0 No 40mg Common (Triamcinol (Triamcinol 7-19 S pirit one) one) 00:00: - [facility] [address] [facility] Sindy Kenalog 2021-0 No 40mg Common (Triamcinol (Triamcinol 7-19 S pirit one) one) 00:00: - [facility] [address] [facility] Sindy Kenalog 2021-0 No 40mg Common (Triamcinol (Triamcinol 7-19 S pirit one) one) 00:00: - [facility] [address] [facility] Kenfrancesco Kenalog 2021-0 No 40mg Common (Triamcinol (Triamcinol 7-19 S pirit one) one) 00:00: - [facility] [address] [facility] Kenfrancesco Kenalog 2021-0 No 40mg Common (Triamcinol (Triamcinol 7-19 S pirit one) one) 00:00: - [facility] [address] [facility] Kenfrancesco Kenalog 2021-0 No 40mg Common (Triamcinol (Triamcinol 7-19 S pirit one) one) 00:00: - [facility] [address] [facility] Kenfrancesco Kenalog 2021-0 No 40mg Common (Triamcinol (Triamcinol 7-19 S pirit one) one) 00:00: - [facility] [address] [facility] Sindy Kenalog 2021-0 No 40mg Common (Triamcinol (Triamcinol 7-19 S pirit one) one) 00:00: - [facility] [address] [facility] Kenalog Kenalog No 40mg Common (Triamcinol (Triamcinol 7-19 S pirit one) one) 00:00: - [facility] [address] [facility] Azithromyci Azithromyci 2021-0 2- No QD Azithromyc n 250 MG n 250 MG 12-06-24 in 250 MG 00:00: 00:00 00 :00 Azithromyci Azithromyci 2021-0 2021- No QD Azithromyc n 250 MG n 250 MG 12-0624 in 250 MG 00:00: 00:00 00 :00 Azithromyci Azithromyci 2021-0 2021- No QD Azithromyc n 250 MG n 250 MG 12-0624 in 250 MG 00:00: 00:00 00 :00 Azithromyci Azithromyci 2021-0 2021- No QD Azithromyc n 250 MG n 250 MG 12-0624 in 250 MG 00:00: 00:00 00 :00 pantoprazol 2021-0 Yes [facility] (PROTONIX) 00:00: Hospita 40 MG EC 00 l tablet pantoprazol 2021-0 Yes [facility] e [facility] (PROTONIX) 00:00: Hospita 40 MG EC 00 l tablet Ambien 10 Ambien 10 No 1{table QD Ambien 10 MG MG 5-04 t_at_be MG 00:00: dtime_a 00 s_neede d} Ambien 10 Ambien 10 No 1{table QD Ambien 10 MG MG 5-04 t_at_be MG 00:00: dtime_a 00 s_neede d} Ambien 10 Ambien 10 No 1{table QD Ambien 10 MG MG 5-04 t_at_be MG 00:00: dtime_a 00 s_neede d} Kenalog Kenalog No 40mg Common (Triamcinol (Triamcinol 7-06 S pirit one) one) 00:00: - [facility] [address] [facility] Kenalog Kenalog 2021-0 No 40mg Common (Triamcinol (Triamcinol 7-06 S pirit one) one) 00:00: - [facility] [address] [facility] Kenalog Kenalog 2020-0 No 40mg Common (Triamcinol (Triamcinol 7-06 S pirit one) one) 00:00: - [facility] [address] [facility] Kenalog Kenalog 0 No 40mg Common (Triamcinol (Triamcinol 7-06 S pirit one) one) 00:00: - [facility] [address] [facility] Kenalog Kenalog 0 No 40mg Common (Triamcinol (Triamcinol 7-06 S pirit one) one) 00:00: - [facility] [address] [facility] Kenfrancesco Kenalog 0 No 40mg Common (Triamcinol (Triamcinol 7-06 S pirit one) one) 00:00: - [facility] [address] [facility] Kenfrancesco Kenalog 2020-0 No 40mg Common (Triamcinol (Triamcinol 7-06 S pirit one) one) 00:00: - [facility] [address] [facility] Kenfrancesco Kenalog 2020-0 No 40mg Common (Triamcinol (Triamcinol 7-06 S pirit one) one) 00:00: - [facility] [address] [facility] Kenalog Kenalog 2020-0 No 40mg Common (Triamcinol (Triamcinol 7-06 S pirit one) one) 00:00: - [facility] [address] [facility] Kenalog Kenalog 2020-0 No 40mg Common (Triamcinol (Triamcinol 7-06 S pirit one) one) 00:00: - [facility] [address] [facility] Kenalog Kenalog 2020-0 No 40mg Common (Triamcinol (Triamcinol 7-06 S pirit one) one) 00:00: - [facility] [address] [facility] Kenalog Kenalog 2020-0 No 40mg Common (Triamcinol (Triamcinol 7-06 S pirit one) one) 00:00: - [facility] [address] [facility] Kenalog Kenalog 2020-0 No 40mg Common (Triamcinol (Triamcinol 7-06 S pirit one) one) 00:00: - [facility] [address] [facility] Kenalog Kenalog 2020-0 No 40mg Common (Triamcinol (Triamcinol 7-06 S pirit one) one) 00:00: - [facility] [address] [facility] Kenalog Kenalog 2020-0 No 40mg Common (Triamcinol (Triamcinol 7-06 S pirit one) one) 00:00: - [facility] [address] [facility] Kenalog Kenalog 2020-0 No 40mg Common (Triamcinol (Triamcinol 7-06 S pirit one) one) 00:00: - [facility] [address] [facility] Kenalog Kenalog 2020-0 No 40mg Common (Triamcinol (Triamcinol 7-06 S pirit one) one) 00:00: - [facility] [address] [facility] Kenalog Kenalog 2020-0 No 40mg Common (Triamcinol (Triamcinol 7-06 S pirit one) one) 00:00: - [facility] [address] [facility] Kenalog Kenalog 2020-0 No 40mg Common (Triamcinol (Triamcinol 7-06 S pirit one) one) 00:00: - [facility] [address] [facility] Kenalog Kenalog 2020-0 No 40mg Common (Triamcinol (Triamcinol 7-06 S pirit one) one) 00:00: - [facility] [address] [facility] Kenalog Kenalog 2020-0 No 40mg Common (Triamcinol (Triamcinol 7-06 S pirit one) one) 00:00: - [facility] [address] [facility] Kenalog Kenalog 2020-0 No 40mg Common (Triamcinol (Triamcinol 7-06 S pirit one) one) 00:00: - [facility] [address] [facility] Kenalog Kenalog 2020-0 No 40mg Common (Triamcinol (Triamcinol 7-06 S pirit one) one) 00:00: - [facility] [address] [facility] Kenalog Kenalog 2020-0 No 40mg Common (Triamcinol (Triamcinol 7-06 S pirit one) one) 00:00: - [facility] [address] [facility] INV-( Yes Ex-smoker 1mg Take 1 Univers 953) 4-16 for less tablet (1 ity of varenicline 00:00: than 1 year mg) by [place] (CHANTIX) 1 00 mouth MD mg tablet twice Anderso daily [facility] INV-( Yes Ex-smoker 1mg Take 1 Univers 953) 4-16 for less tablet (1 ity of varenicline 00:00: than 1 year mg) by [place] (CHANTIX) 1 00 mouth MD mg tablet twice Anderso daily [facility] HYDROcodone Yes [facility] s -acetaminop 3-05 ity of hen (NORCO) 00:00: [place] 7.5 mg-325 00 MD mg per Anderso tablet [facility] HYDROcodone Yes [facility] s -acetaminop 3-05 ity of hen (NORCO) 00:00: [place] 7.5 mg-325 00 MD mg per Anderso tablet [facility] methylPREDN Yes [facility] ISolone 3-04 ity of (MEDROL 00:00: [place] DOSEPACK) 4 00 [facility] ISolone 3-04 ity of (MEDROL 00:00: [place] DOSEPACK) 4 00 [facility] Univers (AMBIEN) 10 2-19 ity of mg tablet 00:00: [place] [facility] Univers (AMBIEN) 10 2-19 ity of mg tablet 00:00: [place] 00 MD [facility] albuterol 2019-05 Yes Univers (VENTOLIN 2-21 ity of HFA,PROAIR 00:00: [place] HFA) 90 00 MD mcg/puff Anderso inhaler [facility] albuterol 2019-05 Yes Univers (VENTOLIN 2-21 ity of HFA,PROAIR 00:00: [place] HFA) 90 00 MD mcg/puff Anderso inhaler [facility] [place] atorvastati 2019-05 Yes Univzi s [place] (LIPITOR) 2-17 ity of 20 mg 00:00: [place] tablet 00 MD [facility] atorvastati 2019- Yes Allie nuñez (LIPITOR) 2-17 ity of 20 mg 00:00: [place] tablet 00 MD Megha nuñez [facility] pantoprazol 2019-05 Yes TAKE 1 Univ ers e 2-11 TABLET BY ity of (PROTONIX) 00:00: MOUTH [place] 40 mg EC 00 DAILY 30 MD tablet MINUTES Anderso BEFORE n BREAKFAST Cancer (EMPTY Center STOMACH) pantoprazol 2019-05 Yes TAKE 1 Univ ers e 2-11 TABLET BY ity of (PROTONIX) 00:00: MOUTH [place] 40 mg EC 00 DAILY 30 MD tablet MINUTES Anderso BEFORE n BREAKFAST Cancer (EMPTY Center STOMACH) ergocalcife 2019-0 [facility]y of (DRISDOL) 00:00: [place] 50,000 00 MD units Anderso capsule n [facility] ergocalcife 2019-0 Yes [facility] 7-30 ity of (DRISDOL) 00:00: [place] 50,000 00 MD units Anderso capsule n [facility] escitalopra 0 Yes Univer s m oxalate 6-09 ity of 10 mg 00:00: [place] tablet 00 [facility] escitalopra 2019-0 Yes Univer s m oxalate 6-09 ity of 10 mg 00:00: [place] tablet 00 [facility] escitalopra 2019-0 Yes Univer s m oxalate 6-09 ity of 10 mg 00:00: [place] tablet 00 [facility] pantoprazol Yes 40mg Take 40 mg Univers e 40 mg EC 7-09 by mouth ity o f tablet 18:57: daily. [address] pantoprazol Yes 40mg Take 40 mg Univers e 40 mg EC 7-09 by mouth ity o f tablet 18:57: daily. [address] pantoprazol Yes 40mg Take 40 mg Univers e 40 mg EC 7-09 by mouth ity o f tablet 18:57: daily. [address] zolpidem Yes 10mg Take 10 mg Univers mg tablet 7- by mouth ity of 00:00: at bedtime [place] 00 as needed. [facility] zolpidem 10 Yes 10mg Take 10 mg Univers mg tablet 7- by mouth ity of 00:00: at bedtime [place] 00 as needed. [facility] zolpidem Yes 10mg Take 10 mg Univers mg tablet 12-14 by mouth ity of 00:00: at bedtime [place] 00 as needed. [facility] methylPREDN methylPREDN No QD methylPRED ISolone 4 [...] Echinacea 400 MG 400 MG 400 MG Azithromyci Azithromyci No QD Azithromyc n 250 MG n 250 MG in 250 MG methylPREDN methylPREDN No QD methylPRED ISolone 4 ISolone 4 NISolone 4 MG MG MG Zinc 50 MG Zinc 50 MG No 1{table QD Zinc 50 MG t} Dicyclomine Dicyclomine No 2{capsu TID Dicyclomin HCl 10 MG HCl 10 MG les} e HCl 10 MG Albuterol Albuterol No Albuterol Sulfate HFA Sulfate HFA Sulfate 108 (90 108 (90 HFA 108 Base) Base) (90 Base) MCG/ACT MCG/ACT MCG/ACT Excedrin Excedrin No Excedrin Migraine Migraine Migraine Pantoprazol Pantoprazol No 1{table QD Pantoprazo e [...] 100 MG 100 MG t} 100 MG Zinc 50 MG Zinc 50 MG No 1{table QD Zinc 50 MG t} Turmeric Turmeric No Turmeric Vitamin B6 Vitamin B6 No 1{table QD Vitamin B6 100 MG 100 MG t} 100 MG Echinacea Echinacea No Echinacea 400 MG 400 MG 400 MG Protonix 40 Protonix 40 No 1{table QD Protonix MG MG t} 40 MG Albuterol Albuterol No 2{puff_ 6xD Albuterol Sulfate HFA Sulfate HFA as_need Sulfate 108 (90 108 (90 ed} HFA 108 Base) Base) (90 Base) MCG/ACT MCG/ACT MCG/ACT Zolpidem Zolpidem No 1{table QD Zolpidem Tartrate 10 Tartrate 10 t_at_be Tartrate MG MG dtime_a 10 MG s_neede d} Ambien 10 Ambien 10 No 1{table QD Ambien 10 MG MG t_at_be MG dtime_a s_neede d} Benzonatate Benzonatate No 1{capsu Benzonatat 200 MG 200 MG le_as_n e 200 MG eeded} methylPREDN methylPREDN No QD methylPRED ISolone 4 ISolone 4 NISolone 4 MG MG MG Azithromyci Azithromyci No QD Azithromyc n 250 MG n 250 MG in 250 MG methylPREDN methylPREDN No QD methylPRED ISolone 4 ISolone 4 NISolone 4 MG MG MG Dicyclomine Dicyclomine No 2{capsu TID Dicyclomin HCl 10 MG HCl 10 MG les} e HCl 10 MG Benzonatate Benzonatate No 1{capsu Benzonatat 200 MG 200 MG le_as_n e 200 MG eeded} Albuterol Albuterol No Albuterol Sulfate HFA Sulfate HFA Sulfate 108 (90 108 (90 HFA 108 Base) Base) (90 Base) MCG/ACT MCG/ACT MCG/ACT Excedrin Excedrin No Excedrin Migraine Migraine Migraine Pantoprazol Pantoprazol No 1{table QD Pantoprazo e [...] 100 MG 100 MG t} 100 MG Zinc 50 MG Zinc 50 MG No 1{table QD Zinc 50 MG t} Turmeric Turmeric No Turmeric Albuterol Albuterol No Albuterol Sulfate HFA Sulfate HFA Sulfate 108 (90 108 (90 HFA 108 Base) Base) (90 Base) MCG/ACT MCG/ACT MCG/ACT Echinacea Echinacea No Echinacea 400 MG 400 MG 400 MG Protonix 40 Protonix 40 No 1{table QD Protonix MG MG t} 40 MG Albuterol Albuterol No 2{puff_ 6xD Albuterol Sulfate HFA Sulfate HFA as_need Sulfate 108 (90 108 (90 ed} HFA 108 Base) Base) (90 Base) MCG/ACT MCG/ACT MCG/ACT Zolpidem Zolpidem No 1{table QD Zolpidem Tartrate 10 Tartrate 10 t_at_be Tartrate MG MG dtime_a 10 MG s_neede d} Ambien 10 Ambien 10 No 1{table QD Ambien 10 MG MG t_at_be MG dtime_a s_neede d} Benzonatate Benzonatate No 1{capsu Benzonatat 200 MG [...] Date Status Commen ts Source Name Name Vineet COVID-19 Moderna COVID-19 2022-03-24 Completed [facility] Vaccine, Bivalent Vaccine, Bivalent 11:09:00 - [facility] Moderna COVID-19 Moderna COVID-19 2022-03-24 Completed [facility] Vaccine, Bivalent Vaccine, Bivalent 11:09:00 - [facility] Flucelvax - single Flucelvax - single 2022-03-08 Completed [facility] dose syringe dose syringe 15:10:00 - [facility] Flucelvax - single Flucelvax - single 2022-03-08 Completed [facility] dose syringe dose syringe 15:10:00 - [facility] Flucelvax - single Flucelvax - single 2022-03-08 Completed [facility] dose syringe dose syringe 15:10:00 - [facility] Flucelvax - single Flucelvax - single 2022-03-08 Completed [facility] dose syringe dose syringe 15:10:00 - [facility] Prevnar 20 (PCV20) Prevnar 20 (PCV20) 2021-09-21 Completed [facility] 11:40:[facility] - [facility] Prevnar 20 (PCV20) Prevnar 20 (PCV20) 2021-09-21 Completed [facility] 11:40:[facility] - [facility] Prevnar 20 (PCV20) Prevnar 20 (PCV20) 2021-09-21 Completed [facility] 11:40:[facility] - [facility] Prevnar 20 (PCV20) Prevnar 20 (PCV20) 2021-09-21 Completed [facility] 11:40:[facility] - [facility] Prevnar 20 (PCV20) Prevnar 20 (PCV20) 2021-09-21 Completed [facility] 11:40:[facility] - [facility] Prevnar 20 (PCV20) Prevnar 20 (PCV20) 2021-09-21 Completed [facility] 11:40:[facility] - [facility] Prevnar 20 (PCV20) Prevnar 20 (PCV20) 2021-09-21 Completed [facility] 11:40:00 - [facility] Prevnar 20 (PCV20) Prevnar 20 (PCV20) 2021-09-21 Completed [facility] 11:40:00 - [facility] Prevnar 20 (PCV20) Prevnar 20 (PCV20) 2021-09-21 Completed [facility] 11:40:00 - [facility] Prevnar 20 (PCV20) Prevnar 20 (PCV20) 2021-09-21 Completed [facility] 11:40:[facility] - [facility] Prevnar 20 (PCV20) Prevnar 20 (PCV20) 2021-09-21 Completed [facility] 11:40:00 - [facility] Prevnar 20 (PCV20) Prevnar 20 (PCV20) 2021-09-21 Completed [facility] 11:40:00 - [facility] Prevnar 20 (PCV20) Prevnar 20 (PCV20) 2021-09-21 Completed [facility] 11:40:00 - [facility] Prevnar 20 (PCV20) Prevnar 20 (PCV20) 2021-09-21 Completed [facility] 11:40:00 [facility] Prevnar 20 (PCV20) Prevnar 20 (PCV20) 2021-09-21 Completed [facility] 11:40:00 - [facility] Prevnar 20 (PCV20) Prevnar 20 (PCV20) 2021-09-21 Completed [facility] 11:40:00 - [facility] Prevnar 20 (PCV20) Prevnar 20 (PCV20) 2021-09-21 Completed [facility] 11:40:00 - [facility] Prevnar 20 (PCV20) Prevnar 20 (PCV20) 2021-09-21 Completed [facility] 11:40:00 - [facility] Prevnar 20 (PCV20) Prevnar 20 (PCV20) 2021-09-21 Completed [facility] 11:40:00 - [facility] Prevnar 20 (PCV20) Prevnar 20 (PCV20) 2021-09-21 Completed [facility] 11:40:00 [facility] Prevnar 20 (PCV20) Prevnar 20 (PCV20) 2021-09-21 Completed [facility] 11:40:00 - [facility] Prevnar 20 (PCV20) Prevnar 20 (PCV20) 2021-09-21 Completed [facility] 11:40:00 - [facility] Prevnar 20 (PCV20) Prevnar 20 (PCV20) 2021-09-21 Completed [facility] 11:40:00 [facility] Prevnar 20 (PCV20) Prevnar 20 (PCV20) 2021-09-21 Completed [facility] 11:40:00 [facility] Vital Signs Vital Name Observation Time Observation Value Comments Source height 2022-03-08 14:50:00 65 [in_i] [facility] weight 2022-03-08 14:50:00 128 [lb_av] [facility] temperature 2022-03-08 14:50:00 97.6 [degF] [facility] bmi 2022-03-08 14:50:00 21.3 kg/m2 [facility] oximetry 2022-03-08 14:50:00 97 % [facility] respiratory rate 2022-03-08 14:50:00 18 /min Comm on [facility] blood pressure 2022-03-08 14:50:00 126 mm[Hg] [facility] systolic [facility] blood pressure 2022-03-08 14:50:00 59 mm[Hg] [facility] diastolic [facility] height 2022-01-30 15:00:00 65 [in_i] [facility] weight 2022-01-30 15:00:00 125 [lb_av] [facility] temperature 2022-01-30 15:00:00 99.2 [degF] [facility] bmi 2022-01-30 15:00:00 20.8 kg/m2 [facility] oximetry 2022-01-30 15:00:00 95 % [facility] height 2021-12-08 09:30:00 65 [in_i] [facility] weight 2021-12-08 09:30:00 126.2 [lb_av] [facility] temperature 2021-12-08 09:30:00 97.9 [degF] [facility] bmi 2021-12-08 09:30:00 21 kg/m2 [facility] oximetry 2021-12-08 09:30:00 98 % [facility] respiratory rate 2021-12-08 09:30:00 18 /min Comm on [facility] blood pressure 2021-12-08 09:30:00 128 mm[Hg] Common [facility] - systolic [facility] blood pressure 2021-12-08 09:30:00 67 mm[Hg] [facility] - diastolic [facility] height 2021-12-06 15:00:00 65 [in_i] [facility] weight 2021-12-06 15:00:00 126 [lb_av] [facility] temperature 2021-12-06 15:00:00 97.1 [degF] [facility] bmi 2021-12-06 15:00:00 20.97 kg/m2 Common S [facility] oximetry 2021-12-06 15:00:00 98 % [facility] respiratory rate 2021-12-06 15:00:00 18 /min Comm on [facility] blood pressure 2021-12-06 15:00:00 135 mm[Hg] Common [facility] - systolic [facility] blood pressure 2021-12-06 15:00:00 80 mm[Hg] Common [facility] - diastolic [facility] height 2021-09-21 10:50:00 65 [in_i] Common S [facility] weight 2021-09-21 10:50:00 122.2 [lb_av] [facility] temperature 2021-09-21 10:50:00 97.2 [degF] [facility] bmi 2021-09-21 10:50:00 20.33 kg/m2 [facility] 2021-09-21 10:50:00 96 % Common S [facility] respiratory rate 2021-09-21 10:50:00 17 /min Comm on [facility] blood pressure 2021-09-21 10:50:00 102 mm[Hg] Common [facility] - systolic [facility] blood pressure 2021-09-21 10:50:00 68 mm[Hg] Common [facility] - diastolic [facility] Systolic blood 2019-11-12 16:24:00 96 mm[Hg] [facility] Diastolic blood 2019-11-12 16:24:00 62 mm[Hg] [facility] Heart rate 2019-11-12 16:24:00 79 /min [facility] Body temperature 2019-11-12 16:24:00 36.11 Mariella [facility] Respiratory rate 2019-11-12 16:24:00 18 /min [facility] Body height 2019-11-12 16:24:00 165.1 cm [facility] Body weight 2019-11-12 16:24:00 65.772 kg [facility] BMI 2019-11-12 16:24:00 24.13 kg/m2 [facility] Oxygen saturation in 2019-11-12 16:24:00 98 /min [facility] blood by [place] [employer] [facility] Pulse oximetry Branch Systolic blood 2019-11-12 16:24:00 96 mm[Hg] [facility] Diastolic blood 2019-11-12 16:24:00 62 mm[Hg] [facility] Heart rate 2019-11-12 16:24:00 79 /min [facility] Body temperature 2019-11-12 16:24:00 36.11 Mariella [facility] Respiratory rate 2019-11-12 16:24:00 18 /min [facility] Body height 2019-11-12 16:24:00 165.1 cm [facility] Body weight 2019-11-12 16:24:00 65.772 kg [facility] BMI 2019-11-12 16:24:00 24.13 kg/m2 [facility] Oxygen saturation in 2019-11-12 16:24:00 98 /min [facility]ial blood by [place] [employer] Pulse oximetry Branch Body weight 2022-01-12 17:57:[address] [facility] BMI 2022-01-12 17:57:00 20.80 kg/m2 [facility] Systolic blood 2022-01-02 19:07:00 106 mm[Hg] Method [facility] pressure Diastolic blood 2022-01-02 19:07:00 60 mm[Hg] [facility] pressure Heart rate 2022-01-02 19:07:00 90 /min [facility] Body height 2022-01-02 19:07:[address] [facility] Procedures Procedure Date / Time Performing Clinician Source Performed COLONOSCOPY-EXTERNAL MCE 2022-02-07 18:27:[address] [facility] CT ABDOMEN WWO CONTRAST 2022-01-12 20:11:21 Tarun Christine Met [facility] PELVIS W CONTRAST COMPREHENSIVE METABOLIC 2022-01-02 20:20:00 Tarun Christine Met [facility] PANEL CBC HEMOGRAM 2022-01-02 20:20:00 Tarun Christine ospital Plan of Care Planned Activity Planned Date Details Comments Source Future Scheduled 2022-04-17 HEPATITIS B VACCINES Met [facility] Test 10:10:25 (1 of 3 - 3-dose series) [code = HEPATITIS B VACCINES (1 of 3 - 3-dose series)] Future Scheduled 2022-04-17 Pneumococcal Vaccine: [facility] Test 10:10:25 Pediatrics (0 to 5 Years) and At-Risk Patients (6 to 64 Years) (1 - PCV) [code = Pneumococcal Vaccine: Pediatrics (0 to 5 Years) and At-Risk Patients (6 to 64 Years) (1 - PCV)] Future Scheduled 2022-04-[address] [facility] Test 10:10:25 (procedure) [code = 568489211] Future Scheduled 2022-04-17 Screening for [facility] Test 10:10:25 malignant neoplasm of cervix (procedure) [code = 834842860] Future Scheduled 2022-04-17 BREAST CANCER [facility] Test 10:10:25 SCREENING [code = BREAST CANCER SCREENING] Future Scheduled 2022-04-17 SHINGLES VACCINES (1 Met [facility] Test 10:10:25 of 2) [code = SHINGLES VACCINES (1 of 2)] Future Scheduled 2022-04-17 COVID-19 VACCINE (4 - [facility] Test 10:10:25 Booster for Moderna series) [code = COVID-19 VACCINE (4 - Booster for Moderna series)] Future Scheduled 2022-04-17 [facility]ACCINE [facility] 10:10:25 [code = INFLUENZA VACCINE] Future Scheduled 2022-04-[address] [facility] Test 10:10:25 [code = COLONOSCOPY SCREENING] Future Scheduled 2022-03-24 HEPATITIS B VACCINES Met [facility] Test 19:19:34 (1 of 3 - 3-dose series) [code = HEPATITIS B VACCINES (1 of 3 - 3-dose series)] Future Scheduled 2022-03-24 Pneumococcal Vaccine: [facility] Test 19:19:34 Pediatrics (0 to 5 Years) and At-Risk Patients (6 to 64 Years) (1 - PCV) [code = Pneumococcal Vaccine: Pediatrics (0 to 5 Years) and At-Risk Patients (6 to 64 Years) (1 - PCV)] Future Scheduled 2022-03-[address] [facility] Test 19:19:34 (procedure) [code = 486439930] Future Scheduled 2022-03-24 Screening for [facility] Test 19:19:34 malignant neoplasm of cervix (procedure) [code = 877613034] Future Scheduled 2022-03-24 BREAST CANCER [facility] Test 19:19:34 SCREENING [code = BREAST CANCER SCREENING] Future Scheduled 2022-03-24 SHINGLES VACCINES (1 Met [facility] Test 19:19:34 of 2) [code = SHINGLES VACCINES (1 of 2)] Future Scheduled 2022-03-24 COVID-19 VACCINE (4 - [facility] Test 19:19:34 Booster for Moderna series) [code = COVID-19 VACCINE (4 - Booster for Moderna series)] Future Scheduled 2022-03-24 INFLUENZA VACCINE Method [facility] Test 19:19:34 [code = INFLUENZA VACCINE] Future Scheduled 2022-03-[address] [facility] Test 19:19:34 [code = COLONOSCOPY SCREENING] Future Scheduled 2021-11-23 COVID-19 Vaccination [facility] [place] Test 07:15:38 (#1) [code = COVID-19 And emmy Cancer Vaccination (#1)] Center Future Scheduled 2021-11-23 COVID-19 Vaccination [facility] [place] Test 07:15:38 (#1) [code = COVID-19 And emmy Cancer Vaccination (#1)] Center Encounters Start End Encounter Admission Attending Care Care Encounter Source Date/Time Date/Time Type Type Clinicians Facility Department ID 2022-03-06 Outpatient Hartman, STLMLC STLMLC [id number] Common 15:13:01 Tanmay [facility] 2022-01-30 Outpatient Hartman, STLMLC STLMLC [id number] Common 10:22:01 Tanmay [facility] 2021-12-09 Outpatient Hartman, STLMLC STLMLC [id number] Common 07:13:00 Tanmay [facility] 2021-09-21 Outpatient Hartman, STLMLC STLMLC [id number] Common 10:48:04 Tanmay [facility] 2020-10-27 Outpatient SYSTEM, ROBERTO MEJIA [id number] 08:22:21 PROVIDER Erick o n 2020-07-29 Outpatient SYSTEM, ROBERTO MEJIA [id number] 12:07:31 PROVIDER Erick o n 2022-04-11 2022-04-11 (WEB) STLMLC STLMLC [id number] [facility] 00:00:00 00:00:00 [facility] 2022-04-11 2022-04-11 (WEB) STLMLC STLMLC [id number] [facility] 00:00:00 00:00:00 [facility] 2022-03-08 2022-03-08 OFFICE STLMLC STLMLC [id number] [facility] 00:00:00 00:00:00 VISIT [facility] LEVEL [address] [facility] 2022-03-06 2022-03-06 (WEB) STLMLC STLMLC [id number] [facility] 00:00:00 00:00:00 [facility] 2022-03-06 2022-03-06 (WEB) STLMLC STLMLC [id number] [facility] 00:00:00 00:00:00 [facility] 2022-02-07 2022-02-07 Documentat Nanci, 1.2.840.1 [id number] Methodi 00:00:00 00:00:00 ion [place]. 25746.1.[address] 3.430.2.7 Hospit a .3.404890 l .8 2022-02-07 2022-02-07 Documentat Christine, 1.2.840.1 [id number] [id number] Methodi 00:00:00 00:00:[address] 3.430.2.7 Hospit a .3.104049 l .8 2022-02-06 2022-02-06 Telephone Laura, 1.2.840.1 [id number] 2100 [id number] Methodi 00:00:00 00:00:[address] [place] [address] 3.430.2.7 Hospit a .3.768344 l .8 2022-02-06 2022-02-06 Telephone Laura, 1.2.840.1 [id number] 2100 [id number] Methodi 00:00:00 00:00:[address] [place] [address] 3.430.2.7 Hospit a .3.515091 l .8 2022-01-30 2022-01-30 OFFICE STLMLC STLMLC [id number] Co mmon 00:00:00 00:00:00 VISIT EST Spir it PT LEVEL [address] [place] [address] 2022-01-30 2022-01-30 (WEB) STLMLC STLMLC [id number] [facility] 00:00:00 00:00:00 [facility] 2022-01-27 2022-01-27 (TEL) STLMLC STLMLC [id number] [facility] 00:00:00 00:00:00 [facility] 2022-01-26 2022-01-26 Orders Laura, 1.2.840.1 [id number] Methodi 00:00:00 00:00:00 Only [place] [address]654.1.[address] 3.430.2.7 Hospit a .3.062669 l .8 2022-01-26 2022-01-26 (WEB) STLMLC STLMLC [id number] Co mmon 00:00:00 00:00:00 [facility] 2022-01-26 2022-01-26 OFFICE STLMLC STLMLC [id number] Co mmon 00:00:00 00:00:00 VISIT [facility] PT - CHI LEVEL [address] [facility] 2022-01-26 2022-01-26 (TEL) STLMLC STLMLC [id number] Co mmon 00:00:00 00:00:00 [facility] 2022-01-26 2022-01-26 Orders Laura, 1.2.840.1 [id number] Methodi 00:00:00 00:00:00 Only [place] [address]9110.1.[address] 3.430.2.7 Hospit a .3.589614 l .8 2022-01-25 2022-01-25 Orders Nanci, 1.2.840.1 [id number] 4003 Methodi 00:00:00 00:00:00 Only [place]un [place]. [address]249.1.[address] 3.430.2.7 Hospit a .3.177196 l .8 2022-01-25 2022-01-25 Telephone Nanci, 1.2.840.1 [id number] 2100 [id number] Methodi 00:00:00 00:00:[address] 3.430.2.7 Hospit a .3.414035 l .8 2022-01-25 2022-01-25 Orders Nanci, 1.2.840.1 [id number] 8774 Methodi 00:00:00 00:00:00 Only Tarun H. 21351.1.[address] 3.430.2.7 Hospit a .3.981954 l .8 2022-01-25 2022-01-25 Telephone Nanci, 1.2.840.1 [id number] 2100 [id number] Methodi 00:00:00 00:00:[address] 3.430.2.7 Hospit a .3.344690 l .8 2022-01-12 2022-01-12 [facility], 1.2.840.1 [id number] [id number] Methodi 13:30:00 23:59:00 Encounter Tarun Salas. 81177.1.1 [address] 3.430.2.7 Hospit a .3.627322 l .8 2022-01-12 2022-01-12 [facility], 1.2.840.1 [id number] Methodi 13:30:00 23:59:00 Encounter Tarun H. 97447.1.1 351 s t 3.430.2.7 Hospit a .3.959611 l .8 2022-01-12 2022-01-12 Travel 1.2.840.1 1.2.301.102 2298 [id number] Methodi 00:00:00 00:00:[address] 3.430.2.7 0.2.7.3.698 Ho spita .3.177077 084.8 l .8 2022-01-12 2022-01-12 Travel 1.2.840.1 1.2.324.283 3747 [id number] Methodi 00:00:00 00:00:[address] 3.430.2.7 0.2.7.3.698 Ho spita .3.704128 084.8 l .8 2022-01-06 2022-01-06 (TEL) [facility] [id number] Co [facility]mon 00:00:00 00:00:00 [facility] 2022-01-04 2022-01-04 Travel 1.2.840.1 1.2.112.295 4536 [id number] Methodi 00:00:00 00:00:[address] 3.430.2.7 0.2.7.3.698 Ho spita .3.335455 084.8 l .8 2022-01-04 2022-01-04 Travel 1.2.840.1 1.2.199.116 6053 [id number] Methodi 00:00:00 00:00:[address] 3.430.2.7 0.2.7.3.698 Ho spita .3.147977 084.8 l .8 2022-01-03 2022-01-03 Documentat Christine, 1.2.840.1 [id number] 812 [id number] Methodi 00:00:00 00:00:00 ion Tarun Salas. 39364.1.[address] 3.430.2.7 Hospit a .3.387115 l .8 2022-01-03 2022-01-03 Documentat Christine, 1.2.840.1 [id number] Methodi 00:00:00 00:00:00 ion Tarun H. [address]62.1.[address] 3.430.2.7 Hospit a .3.844370 l .8 2022-01-02 2022-01-02 Lab Christine, 1.2.840.1 [id number] 0983 Methodi 15:15:00 15:20:00 [address]383[address]1.[address] 3.430.2.7 Hospit a .3.061771 l .8 2022-01-02 2022-01-02 Lab Christine, 1.2.840.1 [id number] 4681 Methodi 15:15:00 15:20:00 [address]279.1.[address] 3.430.2.7 Hospit a .3.073786 l .8 2022-01-02 2022-01-02 Office Christine, 1.2.840.1 [id number] 8034 Methodi 14:30:00 15:11:28 Visit Tarun H. 99369.1.[address] 3.430.2.7 Hospit a .3.207127 l .8 2022-01-02 2022-01-02 Office Christine, 1.2.840.1 [id number] 4154 Methodi 14:30:00 15:11:28 Visit Tarun H. 51818.1.[address] 3.430.2.7 Hospit a .3.454630 l .8 2022-01-02 2022-01-02 Travel 1.2.840.1 1.2.469.857 8153 [id number] Methodi 00:00:00 00:00:[address] 3.430.2.7 0.2.7.3.698 Ho spita .3.331950 084.8 l .8 2022-01-02 2022-01-02 Travel 1.2.840.1 1.2.120.356 9100 [id number] Methodi 00:00:00 00:00:[address] 3.430.2.7 0.2.7.3.698 Ho spita .3.549191 084.8 l .8 2021-12-22 2021-12-22 (WEB) STLMLC STLMLC [id number] Co mmon 00:00:00 00:00:00 [facility] 2021-12-14 2021-12-14 (WEB) STLMLC STLMLC [id number] Co mmon 00:00:00 00:00:00 [facility] 2021-12-08 2021-12-08 (TEL) STLMLC STLMLC [id number] Co mmon 00:00:00 00:00:00 [facility] 2021-12-08 2021-12-08 OFFICE STLMLC STLMLC [id number] Co mmon 00:00:00 00:00:00 VISIT [facility] PT - CHI LEVEL [address] [facility] 2021-12-07 2021-12-07 (WEB) STLMLC STLMLC [id number] Co mmon 00:00:00 00:00:00 [facility] 2021-12-06 2021-12-06 OFFICE STLMLC STLMLC [id number] Co mmon 00:00:00 00:00:00 VISIT [facility] PT - CHI LEVEL [address] [facility] 2021-12-05 2021-12-05 Telephone Laura, 1.2.840.1 [id number] 2100 [id number] Methodi 00:00:00 00:00:[address] [place] [address] 3.430.2.7 Hospit a .3.360631 l .8 2021-12-05 2021-12-05 Telephone Eden Sanchez2.840.1 [id number] 2100 [id number] Methodi 00:00:00 00:00:[address] [place] [address] 3.430.2.7 Hospit a .3.870297 l .8 2021-12-02 2021-12-02 (WEB) STLMLC STLMLC [id number] Co mmon 00:00:00 00:00:00 [facility] 2021-09-21 2021-09-21 (WELLNESS) STLMLC STLMLC [id number] Common 00:00:00 00:00:00 [facility] 2021-09-21 2021-09-21 (TEL) STLMLC STLMLC [id number] Co mmon 00:00:00 00:00:00 [facility] 2020-12-22 2020-12-22 Outpatient CATARINO NICKERSON [id number] Susan 00:00:00 00:00:00 Seybol ofelia 2019-11-14 2019-11-14 Telephone ROSALIA Fox 1.2.236.785 [id number] 0564 [facility] 00:00:00 00:00:00 Ximena RADHA 350.1.13.10 it y of HOSPITAL 4.2.7.2.686 Jose M as [phone] [address] 2019-11-14 2019-11-14 Letter ROSALIA Fox 1.2.840.114 [id number] 09 Univers 00:00:00 00:00:00 (Out) Ximena RADHA 350.1.13.10 it y of HOSPITAL 4.2.7.2.686 Jose M as [phone] [address] 2019-11-14 2019-11-14 ROSALIA Martins 1.2.688.730 1552 0564 00:00:00 00:00:00 Ximena RADHA 350.1.13.10 HOSPITAL 4.2.7.2.686 [id number] 019 2019-11-14 2019-11-14 ROSALIA Chacko 12.840.114 [id number] 09 00:00:00 00:00:00 (Out) Ximena GARCIA 350.1.13.10 [facility] 42.7.2.686 [id number] 019 2019-11-12 2019-11-12 Urgent Pob1, Acute Care [facility] 1 2.840.114 [id number] [facility] 11:16:03 11:56:38 [facility] Rosalia Martinez [facility] 350.1.13.10 [facility] 42.7.2.686 Jose M as Professio [phone] [address] Office [address] 2019-11-12 2019-11-12 Urgent Pob1, Acute [facility] 1.2.840.114 [id number] 11:16:03 11:56:38 [facility] 350.1.13.[address]7.2.686 Professio [phone] [place] [address] [address] 2019-11-12 2019-11-[address] [facility] [id number] [facility] 11:20:00 11:20:00 [facility] Results Test Description Test Time Test [...] fr om a previous Creati nine or Riana Marks t, go to [email or web address] [Automated mess age] The system [employer] generated this result transmitted ref erence range: > OR = 6 0 mL/min/1.73m2. The reference range was not used to int erpret this result as normal/abnormal . BUN/creatinine ratio (test NOT APPLICABLE See_Comment [Automated message] code = 3097-3) The system ich generated this result transmitted ref erence range: 6 - 22 ( calc). The reference r ya was not used to interpret this result as normal/abnor mal. Sodium (test code = 143 mmol/L 534-749 3073-2) Potassium (test code = 5.0 mmol/L 3.5-5.3 2823-3) Chloride (test code = 112 mmol/L 98-110 H 2075-0) CO2 (test code = 2027-9) 20 mmol/L 20-32 Calcium (test code = 9.4 mg/dL 8.6-10.4 77819-1) Protein (test code = 6.5 g/dL 6.1-8.1 2885-2) Albumin, S (test code = 4.1 g/dL 3.6-5.1 1751-7) Globulin, total (test code See_Comment [Automated message] = 75116-0) The system [facility] h generated this result transmitted ref erence range: 1.9 - 3. 7 g/dL (calc). The ref erence range was not u sed to interpret this result as normal/abnor mal. Albumin/globulin ratio See_Comment [Aut omated message] (test code = 1759-0) The [facility] tem which generated this result transmitted ref [...] Performing Organization Information: Site ID: [id number] [facility]: [facility] Address: [address] [place] [address] Director: Madi Barrett Lab Interpretation (test Abnormal code = 20777-0) [facility] [id number] 16:49:00 Test Item Value Reference Range Interpretation Comments WBC (test code = See_Comment [Automated 6690-2) message] The system which generated this result transmitted reference range : 3.8 - 10.8 Thousand/uL. Th e reference range was not used to interpret this result as normal/abnormal . RBC (test code = See_Comment L [Automated 789-8) message] The system which generated this result [...] RAC) Organization Information: Site ID: RGA [facility] Address: [address] [place] [phone] Director: Madi Barrett Lab Interpretation Abnormal (test code = 23173-6) [facility] metabolic [id number] 16:49:00 Test Item Value Reference Range Interpretation Comments Glucose (test code = 79 mg/dL 65-99 Fastin g 2345-7) reference interval BUN (test code = 15 mg/dL 7-25 3094-0) Creatinine (test 0.95 mg/dL 0.50-1.03 code = 2160-0) eGFR (test code = See_Comment The eGFR i s based 8257) on the CKD-EPI 2020 equation. To calculate the n ew eGFR from a previous Creatinine or Cystatin Cresul t, go to [email or web address] ne y.org/joselin na malia/kdoqi/[email or web address] ca lculator [Automated message] The system which generated this result transmitted reference range : > OR = 60 mL/min/1.73m2. The reference range was not used to interpr et this result as normal/abnormal . BUN/creatinine ratio NOT APPLICABLE See_Comment [Aut omated (test code = 3097-3) message ] The system which generated this result transmitted reference range : 6 - 22 (calc). The reference range was not used to interpr et this result as normal/abnormal . Sodium (test code = 143 mmol/L 398-460 2874-2) Potassium (test code 5.0 mmol/L 3.5-5.3 = 2823-3) Chloride (test code 112 mmol/L 98-110 H = 5-0) CO2 (test code = 20 mmol/L 20-32 2027-9) Calcium (test code = 9.4 mg/dL 8.6-10.4 38163-6) Protein (test code = 6.5 g/dL 6.1-8.1 2885-2) Albumin, S (test 4.1 g/dL 3.6-5.1 code = 1751-7) Globulin, total See_Comment [Automated (test code = message] The 54303-3) system which generated this result transmitted reference range : 1.9 - 3.7 g/dL (calc). The reference range was not used to interpret this result as normal/abnormal . Albumin/globulin See_Comment [Automated ratio (test code = message] The 1750) system which generated this result transmitted reference range : 1.0 - 2.5 (calc ). The reference range was not used to interpr et this result as normal/abnormal . Total bilirubin 0.2 mg/dL 0.2-1.2 (test code = 1974-2) Alkaline phosphatase 72 U/L 37-153 (test code = 6768-6) AST (test code = 17 U/L 10-35 1920-8) ALT (test code = 21 U/L 6-29 2-6) RAC (test code = Performing RAC) Organization Information: Site ID: RGA Name: [facility] Address: [address] [place] [phone] Director: Madi Barrett Lab Interpretation Abnormal (test code = 93913-8) [facility] [id number] 16:49:00 Test Item Value Reference Range Interpretation Comments WBC (test code = See_Comment [Automated 6690-2) message] The system which generated this result transmitted reference range : 3.8 - 10.8 Thousand/uL. Th e reference range was not used to interpret this result as normal/abnormal . RBC (test code = See_Comment L [Automated 789-8) message] The system which generated this result [...] = Performing RAC) Organization Information: Site ID: [facility] Name: [facility] Address: [address] [place] [phone] Director: Madi Barrett Lab Interpretation Abnormal (test code = 10704-5) [facility]
[2022-04-17] MEDS ORDERED: ASPIRIN 81 MG CHEWABLE TABLET ONE (10:57)
--- NOTE | 2022-04-17 12:00 | RAD REPORT ---
EXAM DESCRIPTION: RAD - Chest Single View - 04/17/2022 10:29 am CLINICAL HISTORY: CHEST PAIN Chest pain. COMPARISON: Chest Single View dated 04/11/2022; Chest Pa And Lat (2 Views) dated 01/27/2021; Chest Pa And Lat (2 Views) dated 04/14/2019; Chest Single View dated 02/17/2019 FINDINGS: Portable technique limits examination quality. The lungs are grossly clear. The heart is normal in size. No displaced fractures. IMPRESSION: No acute intrathoracic process suspected.
[2022-04-17] MEDS ORDERED: NA CHLORIDE 0.9% 500 ML ONE (12:26)
[2022-04-17] MEDS ORDERED: MIDAZOLAM HCL 2 MG/2 ML INJ ONE (12:52)
[2022-04-17] MEDS ORDERED: FENTANYL CITR 100 MCG/2 ML ONE (12:52)
[2022-04-17] MEDS ORDERED: HEPARIN 5000 UNIT/ML 1 ML VIAL ONE (12:52)
[2022-04-17] MEDS ORDERED: HEPA 1000U/500MLS 2,000 UNIT/1,000 ML BAG IV ONE (12:52)
[2022-04-17] MEDS ORDERED: VERAPAMIL HCL 10 MG/4 ML VIAL IV ONE (12:52)
[2022-04-17] MEDS ORDERED: HEPARIN 10,000 UNIT/10 ML VIAL IV ONE (12:53)
[2022-04-17] MEDS ORDERED: ATROPINE SULF 1 MG/10 ML SYR IV ONE (12:53)
[2022-04-17] MEDS ORDERED: NITROGLYCERIN 100 MCG/ML SYR (for cath lab use only) IV ONE (12:53)
[2022-04-17] MEDS ORDERED: LIDOCAINE 1% 20 ML MDV ONE (13:02)
--- NOTE | 2022-04-17 13:46 | EDPHYS ---
Physician Documentation [facility] Name: Sherri De La Garza Age: 56 yrs Sex: Female : 1965 Arrival Date: 04/17/2022 Time: 10:09 Bed IW2 Private MD: ED Physician Abran Millan HPI: 04/17 10:57 This 56 yrs old Female presents to ER via Ambulatory with complaints of Chest pain- ms3 Sent By [place]. 10:57 The patient or guardian reports chest pain that is located primarily in the substernal ms3 area. Onset: 6 day(s) ago. The pain does not radiate. Associated signs and symptoms: Pertinent positives: shortness of breath, Pertinent negatives: abdominal pain, nausea, vomiting. The chest pain is described as a pressure. Duration: The patient or guardian reports a single episode, that is still ongoing, and unchanged. Modifying factors: The symptoms are alleviated by nothing. the symptoms are aggravated by eating, movement. Severity of pain: At its worst the pain was moderate in the emergency department the pain is unchanged is a 6 / 10. The patient has been recently seen at the [facility] Emergency Department, last week. 10:57 Patient states she was sent to the emergency department by her electrical products sales engineer, Dr. mary Scott. Discussed case with Dr. Scott and he will cath patient later today. Historical: - Allergies: 10:53 No Known Allergies; ss - PMHx: 10:53 Asthma; ss - PSHx: 10:53 Cholecystectomy; Total abdominal hysterectomy; knee repair; back sx; ss - Immunization history:: Client reports receiving the 2nd dose of the Covid vaccine. - Social history:: Smoking status: Reported history of juuling and/or vaping. ROS: 10:57 Constitutional: Negative for fever, and chills. Neck: Negative for injury, pain, and ms3 swelling, Respiratory: Negative for shortness of breath, cough, wheezing, and pleuritic chest pain, Abdomen/GI: Negative for abdominal pain, nausea, vomiting, diarrhea, and constipation. 10:57 Skin: Negative for injury, rash, and discoloration. 10:57 Cardiovascular: Positive for chest pain. 10:57 All other systems are negative. Exam: 10:57 Constitutional: This is a well developed, well nourished patient who is awake, alert, ms3 and in no acute distress. Head/Face: Normocephalic, atraumatic. Neck: Trachea midline, no cervical lymphadenopathy. Supple, full range of motion without nuchal rigidity, or vertebral point tenderness. No Meningismus. Chest/axilla: Normal chest wall appearance and motion. Nontender with no deformity. Cardiovascular: Regular rate and rhythm with a normal S1 and S2. No gallops, murmurs, or rubs. Normal PMI, no JVD. No pulse deficits. Respiratory: Lungs have equal breath sounds bilaterally, clear to auscultation and percussion. No rales, rhonchi or wheezes noted. No increased work of breathing, no retractions or nasal flaring. Abdomen/GI: Soft, non-tender, with normal bowel sounds. No distension or tympany. No guarding or rebound. No evidence of tenderness throughout. Back: No spinal tenderness. No costovertebral tenderness. Full range of motion. Skin: Warm, dry with normal turgor. Normal color with no rashes, no lesions, and no evidence of cellulitis. MS/ Extremity: Pulses equal, no cyanosis. Neurovascular intact. Full, normal range of motion. 11:03 ECG was reviewed by the Attending Physician. ms3 Vital Signs: 10:51 BP 125 / 63; Pulse 77; Resp 16; Temp 97.6(TE); Pulse Ox 100% on R/A; Weight 57.61 kg; ss Height 5 ft. 5 in. (165.10 cm); Pain 7/10; 10:51 Body Mass Index 21.13 (57.61 kg, 165.10 cm) ss MDM: 10:57 Differential diagnosis: abnormal EKG, acute myocardial infarction, chest wall pain, ms3 stable angina, unstable angina. 11:00 Patient medically screened. ms3 13:46 HEART Score: History: Slightly Suspicious (0), ECG: Normal (0), Age: > 45 and < 65 ms3 years (1), Risk Factors: No Risk Factors Known (0), Troponin: Total Score = 01. The patient was given aspirin in the Emergency Department. Data reviewed: vital signs, nurses notes, lab test result(s), EKG, radiologic studies, and as a result, I will continue to observe the patient. ED course: Discussed case with Dr Vasquez. Patient has gone to organic lab worker with Dr Scott. . 04/17 10:14 Order name: Basic Metabolic Panel ms3 04/17 10:14 Order name: CBC with Diff ms3 04/17 10:14 Order name: Magnesium ms3 04/17 10:14 Order name: Troponin HS ms3 04/17 10:14 Order name: XRAY Chest (1 view); Complete Time: 13:12 ms3 04/17 11:30 Order name: CL CARDIAC CATH - REQUEST EDMS 04/17 10:14 Order name: EKG; Complete Time: 10:14 ms3 04/17 10:14 Order name: Cardiac monitoring ms3 04/17 10:14 Order name: EKG - Nurse/Tech; Complete Time: 11:06 ms3 04/17 10:14 Order name: IV Saline Lock ms3 04/17 10:14 Order name: Labs collected and sent ms3 04/17 10:14 Order name: O2 Per Protocol ms3 04/17 11:29 Order name: NPO EDMS 04/17 10:14 Order name: O2 Sat Monitoring ms3 EC:03 Rate is 70 beats/min. Rhythm is regular. QRS [place] is Normal. CT interval is normal. QRS ms3 interval is normal. No ST changes noted. Clinical impression: Normal ECG. Interpreted by me. Reviewed by me. Administered Medications: 10:58 Drug: Aspirin Chewable Tablet 324 mg Route: PO; ss Disposition Summary: 04/17/22 13:45 Hospitalization Ordered Hospitalization Status: Observation ms3 Provider: Gilberto Vasquez ms3 Location: Telemetry/MedSurg (observation) ms3 Condition: Stable ms3 Problem: new ms3 Symptoms: are unchanged ms3 Bed/Room Type: Standard ms3 Room Assignment: ms3 Diagnosis - Chest pain, unspecified ms3 Forms: - Medication Reconciliation Form ms3 - SBAR form ms3 Signatures: Dispatcher [employer] Katarina Garnica RN RN Abran Dawn DO DO ms3 Corrections: (The following items were deleted from the chart) 10:54 10:53 Allergies: Codeine; ss ss
--- NOTE | 2022-04-17 13:46 | ER ---
Nurse's Notes [facility] Name: Sherri De La Garza Age: 56 yrs Sex: Female : 1965 Arrival Date: 04/17/2022 Time: 10:09 Bed IW2 Private MD: Diagnosis: Chest pain, unspecified Presentation: 04/17 10:51 Chief complaint: Patient states: Sent by Dr. Scott for evaluation of CP and heart ss cath. Pt reports that she has had chest discomfort for the past 2 weeks. Pt reports on Sunday she had an EKG this morning and last Sunday. Coronavirus screen: Client denies travel out of the [place] in the last 14 days. Ebola Screen: Patient denies exposure to infectious person. Patient denies travel to an Ebola-affected area in the 21 days before illness onset. Initial Sepsis Screen: Does the patient meet any 2 criteria? No. Patient's initial sepsis screen is negative. Does the patient have a suspected source of infection? No. Patient's initial sepsis screen is negative. Risk Assessment: Do you want to hurt yourself or someone else? Patient reports no desire to harm self or others. Onset of symptoms was April 03, 2022. 10:51 Method Of Arrival: Ambulatory ss 10:51 Acuity: NICOLE 3 ss Historical: - Allergies: 10:53 No Known Allergies; ss - PMHx: 10:53 Asthma; ss - PSHx: 10:53 Cholecystectomy; Total abdominal hysterectomy; knee repair; back sx; ss - Immunization history:: Client reports receiving the 2nd dose of the Covid vaccine. - Social history:: Smoking status: Reported history of juuling and/or vaping. Assessment: 11:07 Reassessment: EKG shown to Dr. Millan. PT placed back in lobby and notified of approx ss wait time. Vital Signs: 10:51 BP 125 / 63; Pulse 77; Resp 16; Temp 97.6(TE); Pulse Ox 100% on R/A; Weight 57.61 kg; ss Height 5 ft. 5 in. (165.10 cm); Pain 7/10; 10:51 Body Mass Index 21.13 (57.61 kg, 165.10 cm) ss ED Course: 10:09 Patient arrived in ED. rg4 10:13 Abran Millan DO is Attending Physician. ms3 10:31 XRAY Chest (1 view) In Process Unspecified. EDMS 10:53 Triage completed. ss 10:53 Arm band placed on right wrist. ss 13:45 Gilberto Vasquez MD is Hospitalizing Provider. ms3 14:02 No provider procedures requiring assistance completed. Pt to receive IV in label operator. ss Administered Medications: 10:58 Drug: Aspirin Chewable Tablet 324 mg Route: PO; ss Outcome: 13:45 Decision to Hospitalize by Provider. ms3 14:02 Admitted to Machine Binding Folder accompanied by nurse. ss 14:02 Condition: stable 14:02 Instructed on the need for admit. 14:02 Patient left the ED. ss Signatures: Dispatcher [employer] EDWV Katarina Dobbs RN RN Jemima Michele rg4 Abran Millan DO DO ms3 Corrections: (The following items were deleted from the chart) 10:54 10:53 Allergies: Codeine; ss ss
[2022-04-17 14:09] VITALS: BP 125/63; TEMP 97.6; O2SAT 100
[2022-04-17] MEDS ORDERED: HYDROCODONE/APAP 10/325 TAB ONE (14:58)
[2022-04-17] MEDS ORDERED: HYDROCODONE/APAP 10/325 TAB PO ONE (15:00)
[2022-04-17 15:02] LABS: Absolute Lymphocytes (CBC) 2.1 K/uL (0.7-4.9); Hematocrit 38.1 % (36.0-45.0); Lymphocytes % 27.8 % (15.3-44.8); MCV 99.9 fL (80-100); MPV 6.8 fL (7.6-11.3); RBC Red Blood Cell Count 3.81 M/uL (3.86-4.86)
[2022-04-17 15:19] LABS: Magnesium 2.6 mg/dL (1.8-2.4); Troponin High Sensitivity 35.7 pg/mL (<58.9)
[2022-04-17] MEDS ORDERED: KETOROLAC 30 MG/ML INJ IV ONE (16:02)
--- NOTE | 2022-04-17 16:04 | P.SSS ---
Patient History Date of Service: 04/17/22 Reason for admission: chest pain History of Present Illness: 56yo F, PMH: Insomnia, GERD, hiatal hernia Patient sent to ED by Dr. Scott from his office due to ongoing chest pain, concerning for unstable angina. She reports ~2 weeks of ongoing chest pain, substernal, feels sharp, and at times like a pressure sensation. She has not noted anything in particular that aggravates or alleviates this pain, seems to occur randomly. Pain resolved briefly at times, and no difference in frequency in the morning vs night. Patient has not taken anything for her pain. Feels different than her usual GERD pain. Denies any recent heavy lifting. She does vape. Due to concern for unstable angina, Dr. Scott took patient for cardiac cath which was negative. Hospitalist team was contacted after cardiac cath for admission to hospital. Dr. Scott stated clear from cardiac standpoint for discharge in ~3-4 hrs after monitoring in PACU. Allergies codeine Allergy (Verified 03/17/14 12:06) Shortness of breath Home Medications: Zolpidem Tartrate [Ambien] 10 mg PO PRN 05/24/16 Albuterol Inhaler [Ventolin Inhaler*] 2 puff IH Q6H PRN #1 hfa.aer.ad 05/26/16 Azithromycin [Zithromax] 500 mg PO DAILY #5 tablet 05/26/16 Cefuroxime Axetil [Ceftin] 500 mg PO BID #10 tablet 05/26/16 Guaifen W/Codeine Syrup [ROBITUSSIN A-C Syrup] 5 ml PO Q4HP PRN #150 ml 05/26/16 Hydrocodone 10/APAP 325 [Tyler 10/325*] 1 tab PO Q6H PRN #12 tab 05/26/16 - Past Medical/Surgical History Diabetic: No -: asthma -: GERD -: tubal ligation -: cholesystectomy -: uterine ablation -: right ovary and tube removed -: hystero 12/19/12 -: foot surgery 2015 - Family History Father Notes: pt is adopted Mother -: Diabetes - Social History Smoking Status: Current every day smoker Alcohol use: No CD- Drugs: No Caffeine use: Yes Place of Residence: Home Review of Systems 10-point ROS is otherwise unremarkable Physical Examination - Vital Signs Temperature: 97.6 F Blood Pressure: 125/63 Pulse: 77 Respirations: 16 - Physical Exam General: Alert, In no apparent distress, Oriented x3 HEENT: EOMI, Sclerae nonicteric Neck: Supple, No LAD Respiratory: Clear to auscultation bilaterally, Normal air movement Cardiovascular: No edema, Regular rate/rhythm, No murmurs Gastrointestinal: Soft and benign, Non-distended, No tenderness Musculoskeletal: Tenderness (along sternum) Integumentary: No rashes, No significant lesion Neurological: Normal speech, Normal strength at 5/5 x4 extr, Normal affect - Studies Laboratory Data (last 24 hrs) 04/17/22 14:33: WBC 7.50, Hgb 12.9, Hct 38.1, Plt Count 343 04/17/22 14:33: Sodium 141, Potassium 4.0, BUN 18, Creatinine 0.86, Glucose 92, Magnesium 2.6 H Treatment Summary: Cardiac cath normal. Troponin negative, EKG without ischemic changes, CXR, CBC, BMP, and D-dimer all WNL. On exam patient was tender along her sternum, and partly recreated / exacerbated her pain. History and exam most consistent with musculoskeletal origin, suspect costochondritis. Advised rest, ice/heat, and NSAIDs TID for the next week. Follow up: PCP within 1 week Cardiology within 1-2 weeks - to set up for holter vs event monitor. Patient reported some intermittent palpitations. - Disposition Disposition: ROUTINE DISCHARGE Condition: GOOD Time Spent Managing Pts Care (In Minutes): 70
--- NOTE | 2022-04-17 23:41 | OP ---
Date of Procedure: 04/17/2022 Surgeon: CELESTE HURTADO Procedures Performed: 1.Selective coronary angiogram. 2.Left heart catheterization. Indication: Unstable angina. Access: Right radial artery 6-[place] closed with TR band. Complications: None. Estimated Blood Loss: Bleeding less than 10 mL. Anesthesia: Total sedation time was 20 minutes, used fentanyl and Versed. Description Of Procedure: After risks, benefits, and alternatives were explained, the patient agreed to procedure and signed informed consent. Patient was brought into the cardiac [facility] and prepped and draped in usual sterile fashion. Then, I accessed right radial artery using reportbrain micropuncture kit, placed a 6-[place] Slender sheath and took a 5-[place] 4 catheter int o the aortic root, and engaged left main and right coronary artery, took standard views and then cath eter was advanced over the wire into the LV, measured the LVEDP, and pullback did not record any grad ient. I removed the catheter and the sheath, placed TR band with good hemostasis. Findings: 1.Left main: Large and normal. 2.LAD: Large and normal. 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 Normal diagonal bran ches. 3.Left circumflex: Large dominant and normal. Normal OM branches. 4.RCA: Small, nondominant and normal. 5.Normal LVEDP between 5 and 10 mmHg. Conclusion: 1.Normal coronary arteries. 2.Normal left ventricular end-diastolic pressure. 3.This chest pain is noncardiac. From Cardiology standpoint, patient can be released and follow up as outpatient. SR/MODL Voice ID: [id number] Report ID: [id number]
--- NOTE | 2022-04-19 16:31 | EKG ---
Test Date: 2022-04-17 Test Time: 11:01:16 Heliarc Welder: ROOPA MEASUREMENT RESULTS: Intervals: Rate: 70 [place]: 146 QRSD: 92 QT: 410 QTc: 442 [place]: P: 78 AZ: 146 QRS: 80 T: 80 INTERPRETIVE STATEMENTS: Normal sinus rhythm Normal ECG Compared to ECG 04/11/2022 13:19:59 Left ventricular hypertrophy no longer present Myocardial infarct finding no longer present Electronically Signed On 04-19-22 16:23:53 AIRCRAFT SALES REPRESENTATIVE by Newton Watt
== END 2022-04-17 17:30 | disposition home or self-care (01) ==
LOC: ER 10:04 → ERHOLD 15:57
PROVIDERS: ADMIT Hospitalist; ATTEND Hospitalist
DX: R07.89 Other chest pain (principal); R00.2 Palpitations; Q24.5 Malformation of coronary vessels; K21.9 Gastro-esophageal reflux disease without esophagitis; G47.00 Insomnia, unspecified; J45.909 Unspecified asthma, uncomplicated; K44.9 Diaphragmatic hernia without obstruction or gangrene; F17.290 Nicotine dependence, other tobacco product, uncomplicated; Z79.899 Other long term (current) drug therapy; Z88.5 Allergy status to narcotic agent; Z90.49 Acquired absence of other specified parts of digestive tract; Z90.721 Acquired absence of ovaries, unilateral; Z90.79 Acquired absence of other genital organ(s); Z90.710 Acquired absence of both cervix and uterus; Z83.3 Family history of diabetes mellitus
CPT/HCPCS: 93005; 85025; 80048; 36415; 83735; 85379; 84484; 71045; 93458; 76937; 99285; C1893; Q9966; J1644 ×2; J2250; J3010; J7040; G0378 ×2; 92960; J0461

== ENCOUNTER 2023-09-15 19:22 | Inpatient (IN) | payer OTHER ==
--- OUTSIDE RECORDS SUMMARY | 2023-09-15 19:25 | XMS REPORT | Clinical Summary ---
Author Name Unknown Organization [facility] Address [address] [place] [address] Care Team Providers Care Registered Respiratory Technician Name Role Phone Unavailable Primary Care Provider Unavailabl e Allergies No known active allergies Medications Medication Sig Dispensed Refills Start Date End Date Status albuterol (VENTOLIN HFA,PROAIR HFA) 90 mcg/puff inhaler 0 05/10/2020 Active atorvastatin (LIPITOR) 20 mg tablet 0 05/06/2020 Active ergocalciferol (DRISDOL) 50,000 units capsule 0 12/18/2019 Active HYDROcodone-acetamin ophen (NORCO) 7.5 mg-325 mg per tablet 0 07/23/2020 Acti ve methylPREDNISolone (MEDROL DOSEPACK) 4 mg tablet 0 07/22/2020 Active pantoprazole (PROTONIX) 40 mg EC tablet TAKE 1 TABLET BY MOUTH DAILY 30 MINUTES BEFORE BREAKFAST (EMPTY STOMACH) 0 04/30/2020 Active zolpidem (AMBIEN) 10 mg tablet 0 07/09/2020 Active INV-() varenicline (CHANTIX) 1 mg tabletIndications:Ex -smoker for less than 1 year Take 1 tablet (1 mg) by mouth twice daily 84 tablet 0 09/03/2020 Active Active Problems Problem Noted Date Diagnosed Date Ex-smoker for less than 1 year 09/03/2020 Social History Tobacco Use Types Packs/Day Years Used Date Smoking Tobacco: Former Cigarettes 1 2 001 - 08/06/2020 Smokeless Tobacco: Never Tobacco Cessation:Ready to Q uit: Yes; Counseling Given: Yes Alcohol Use Standard Drinks/Week Comments Not Currently 0 (1 standard drink = 0.6 oz pur e alcohol) 1-2 drinks year Sex and Gender Information Value Date Recorded Sex Assigned at Not on file Gender Identity Not on file Sexual Orientation Not on file Obstetrics History Plan of Treatment Health Maintenance Due Date Last Done Comments COVID-19 Vaccine (#1) 03/15/1966 Influenza Vaccine 01/19/2023
[2023-09-15] MEDS ORDERED: MORPHINE 4 MG/ML SYR ONE ×2 (19:46→21:07)
[2023-09-15] MEDS ORDERED: KETOROLAC 30 MG/ML INJ ONE (19:46)
[2023-09-15] MEDS ORDERED: ONDANSETRON 4 MG/2 ML VIAL ONE (19:46)
[2023-09-15 19:58] LABS: Absolute Basophils 0.1 K/uL (0-0.5); Absolute Eosinophils 0.4 K/uL (0-0.5); Absolute Lymphocytes (CBC) 1.7 K/uL (0.7-4.9); Absolute Monocytes 0.6 K/uL (0.1-1.3); Absolute Neutrophil 2.5 K/uL (1.8-8.0); Basophils % 1.5 % (0-1.3); Eosinophils % 7.8 % (0-4.4); Hematocrit 31.7 % (36.0-45.0); Hemoglobin 10.9 g/dL (12.0-15.0); Lymphocytes % 32.2 % (15.3-44.8); MCH 32.7 pg (27.0-35.0); MCHC 34.5 g/dL (32.0-36.0); MCV 94.6 fL (80-100); MPV 6.5 fL (7.6-11.3); Monocytes % 11.4 % (3.3-12.3); Neutrophils % 47.1 % (41.7-73.7); Nucleated Red Blood Cells % 0.1 % (0-0); Platelets 304 thou/uL (152-406); RBC Red Blood Cell Count 3.35 M/uL (3.86-4.86)
[2023-09-15] MEDS ORDERED: CEFTRIAXONE 1000 MG/VIAL ONE (20:01)
[2023-09-15] MEDS ORDERED: NA CHLORIDE 0.9% 1,000 ML ONE ×2 (20:01→21:38)
[2023-09-15 20:15] LABS: Albumin 3.7 g/dL (3.4-5.0); Albumin/Globulin Ratio 1.1 (1.1-1.8); Anion Gap 9.3 mEq/L (5.0-15.0); Bilirubin Total 0.2 mg/dL (0.2-1.0); Globulin 3.3 g/dL (2.3-3.5); Potassium 4.3 mEq/L (3.5-5.1)
--- NOTE | 2023-09-15 20:38 | RAD REPORT ---
EXAM DESCRIPTION: CT - Abdomen Pelvis Wo Contrast - 09/15/2023 8:31 pm CLINICAL HISTORY: Abdominal pain. Abd pain;Flank pain COMPARISON: Abdomen Pelvis W Contrast dated 01/29/2023 TECHNIQUE: CT imaging of the abdomen and pelvis was performed without contrast. Solid organ, bowel a nd vascular assessment is limited due to lack of IV and oral contrast. All CT scans are performed using dose optimization technique as appropriate and may include automated exposure control or mA/KV adjustment according to patient size. FINDINGS: The lower lung mahan are clear.Cholecystectomy clips. The liver, spleen, pancreas, adrenal glands and right kidney are within normal limits for a limited n on-contrast examination.Mild left hydronephrosis and hydroureter is present. 4 mm calculus may be pre sent in the distal left ureter. There is mild thickening along the bladder mucosa at the left UVJ. No bowel obstruction, free air, free fluid or abscess. The appendix is normal. The osseous structures are within normal limits.Lumbar orthopedic hardware. IMPRESSION: Mild to moderate left-sided hydronephrosis and hydroureter potentially caused by 4 mm ca lculus distally. Mild thickening along the bladder mucosa is seen at the level of the left UVJ. A limited non-contrast examination was performed as detailed.
[2023-09-15] MEDS: TAMSULOSIN 0.4 MG SR CAP PO SCH (21:00)
[2023-09-15 21:38] LABS: Specific Gravity 1.011 (1.005-1.030); Sqamous Epithelial None Seen /HPF (None Seen); Urine Bacteria None Seen /HPF (<20); Urine Bilirubin 1+ (Negative); Urine Blood 3+ (Negative); Urine Clarity Turbid (Clear); Urine Color Dark-Yellow (Yellow); Urine Culture Reflex Order NOT NEEDED; Urine Glucose NEGATIVE (Negative); Urine Ketones NEGATIVE (Negative); Urine Microscopic Reflex YN ORDER UMIC; Urine Mucus Slight /HPF (None Seen); Urine Nitrite 1+ (Negative); Urine Protein TRACE (Negative); Urine RBC >50 /HPF (None Seen); Urine Urobilinogen 1+ (Normal); Urine WBC <5 /HPF (<5); Urine pH 6.5 (5.0-7.0)
[2023-09-15] MEDS ORDERED: TAMSULOSIN 0.4 MG SR CAP ONE (21:38)
--- NOTE | 2023-09-15 21:50 | EDPHYS ---
Physician Documentation [facility] Name: Sherri De La Garza Age: 58 yrs Sex: Female : 1965 Arrival Date: 09/15/2023 Time: 19:22 Bed 7 Private MD: ED Physician Paco Woodward HPI: 09/14 19:56 This 58 yrs old Female presents to ER via Wheelchair with complaints of Post fermin Sx:pelvic,side pain inc leg pain. 19:56 The patient presents with abdominal pain in the lower abdomen. Onset: The fermin symptoms/episode began/occurred 1 day(s) ago. The patient presents with urinary symptoms, frequency. Modifying factors: The symptoms are alleviated by nothing, the symptoms are aggravated by nothing. Associated signs and symptoms: Pertinent positives: urinary frequency. Severity of symptoms: At their worst the symptoms were moderate, in the emergency department the symptoms are unchanged. The patient presents with pain that is acute. The symptoms are located in the low back, left mid back. Historical: - Allergies: 19:39 No Known Allergies; jb4 - PMHx: 19:39 Asthma; gastritis; Hypertensive disorder; High colesterol; jb4 - PSHx: 19:39 back sx; Cholecystectomy; knee repair; Total abdominal hysterectomy; jb4 - Immunization history:: Adult Immunizations up to date. - Infectious Disease History:: Denies. - Social history:: Smoking status: Reported history of juuling and/or vaping. - Family history:: not pertinent. ROS: 19:56 Constitutional: Negative for fever, chills, and weight loss, Eyes: Negative for injury, fermin pain, redness, and discharge, ENT: Negative for injury, pain, and discharge, Neck: Negative for injury, pain, and swelling, Cardiovascular: Negative for chest pain, palpitations, and edema, Respiratory: Negative for shortness of breath, cough, wheezing, and pleuritic chest pain, : Negative for injury, bleeding, discharge, and swelling, MS/Extremity: Negative for injury and deformity, Skin: Negative for injury, rash, and discoloration, Neuro: Negative for headache, weakness, numbness, tingling, and seizure, Psych: Negative for depression, anxiety, suicide ideation, homicidal ideation, and hallucinations, Allergy/Immunology: Negative for hives, rash, and allergies, Endocrine: Negative for neck swelling, polydipsia, polyuria, polyphagia, and marked weight changes, Hematologic/Lymphatic: Negative for swollen nodes, abnormal bleeding, and unusual bruising, 19:56 Abdomen/GI: Positive for abdominal pain, nausea, abdominal cramps, of the posterior aspect of left lateral abdomen, anterior aspect of left lateral abdomen and left lower quadrant, Exam: 19:56 Constitutional: This is a well developed, well nourished patient who is awake, alert, fermin and in no acute distress. Head/Face: Normocephalic, atraumatic. Eyes: Pupils equal round and reactive to light, extra-ocular motions intact. Lids and lashes normal. Conjunctiva and sclera are non-icteric and not injected. Cornea within normal limits. Periorbital areas with no swelling, redness, or edema. ENT: Nares patent. No nasal discharge, no septal abnormalities noted. Tympanic membranes are normal and external auditory canals are clear. Oropharynx with no redness, swelling, or masses, exudates, or evidence of obstruction, uvula midline. Mucous membranes moist. Neck: Trachea midline, no thyromegaly or masses palpated, and no cervical lymphadenopathy. Supple, full range of motion without nuchal rigidity, or vertebral point tenderness. No Meningismus. Chest/axilla: Normal chest wall appearance and motion. Nontender with no deformity. No lesions are appreciated. Respiratory: Lungs have equal breath sounds bilaterally, clear to auscultation and percussion. No rales, rhonchi or wheezes noted. No increased work of breathing, no retractions or nasal flaring. Female : Normal external genitalia. Skin: Warm, dry with normal turgor. Normal color with no rashes, no lesions, and no evidence of cellulitis. MS/ Extremity: Pulses equal, no cyanosis. Neurovascular intact. Full, normal range of motion. Neuro: Awake and alert, GCS 15, oriented to person, place, time, and situation. Cranial nerves II-XII grossly intact. Motor strength 5/5 in all extremities. Sensory grossly intact. Cerebellar exam normal. Normal gait. Psych: Awake, alert, with orientation to person, place and time. Behavior, mood, and affect are within normal limits. 19:56 Cardiovascular: Rate: tachycardic, actual rate is 105 bpm, Rhythm: regular, Pulses: no pulse deficits are appreciated, Heart sounds: normal, normal S1and S2, no S3 or S4, no murmur, no rub, no gallop, Edema: is not appreciated, JVD: is not appreciated, Vital Signs: 19:35 BP 151 / 67; Pulse 105; Resp 20; Temp 97.8(O); Pulse Ox 97% on R/A; Weight 62.14 kg jb4 (R); Height 5 ft. 5 in. ; Pain 10/10; 20:00 BP 115 / 61; Pulse 74; Resp 18; Pulse Ox 97% on R/A; cm10 21:00 BP 104 / 50; Pulse 70; Resp 18; Pulse Ox 98% on R/A; cm10 22:12 BP 114 / 73; Pulse 77; Resp 16; Pulse Ox 99% on R/A; cm10 23:30 BP 111 / 64; Pulse 69; Resp 17 S; Pulse Ox 97% on R/A; ha1 19:35 Body Mass Index 22.80 (62.14 kg, 165.1 cm) jb4 19:35 Pain Scale: Adult jb4 MDM: 19:33 Patient medically screened. fermin 20:01 Differential diagnosis: urinary tract infection, diverticulitis, non-specific abd pain. fermin Data reviewed: vital signs, nurses notes, lab test result(s), radiologic studies, CT scan. Consideration of Admission/Observation Escalation of care including admission/observation considered. I considered the following discharge prescriptions or medication management in the emergency department Medications were administered in the Emergency Department. See MAR. Care significantly affected by the following chronic conditions: Hypertension, gastritis, high chlesterol. 09/14 19:46 Order name: CBC with Diff; Complete Time: 20:07 cm10 09/14 19:46 Order name: CMP; Complete Time: 20:21 cm10 09/14 19:46 Order name: Lipase; Complete Time: 20:21 cm10 09/14 19:46 Order name: Urinalysis w/ reflexes; Complete Time: 21:47 cm10 09/14 23:22 Order name: CBC with Automated Diff EDMS 09/14 23:22 Order name: CBC with Automated Diff EDMS 09/14 23:22 Order name: Comprehensive Metabolic Panel EDMS 09/14 23:22 Order name: Comprehensive Metabolic Panel EDMS 09/14 20:29 Order name: Abdomen ; Complete Time: 21:34 EDMS 09/14 23:22 Order name: CONS Physician Consult EDIN 09/14 23:22 Order name: CONS Physician Consult EDIN 09/14 19:46 Order name: IV Saline Lock; Complete Time: 19:53 cm10 09/14 19:46 Order name: Labs collected and sent; Complete Time: 19:53 cm10 Administered Medications: 19:40 Drug: Ondansetron IVP 4 mg IVP once; over 2 minutes Route: IVP; Site: right forearm; ha1 20:10 Follow up: Response: No adverse reaction; Marked relief of symptoms ha1 19:42 Drug: morphine IVP or IV 4 mg IVP once over 4 mins Route: IVP; Infused Over: 4 mins; ha1 Site: right forearm; 20:10 Follow up: Response: No adverse reaction; Marked relief of symptoms; Pain is decreased; ha1 RASS: Alert and Calm (0) 19:44 Drug: Ketorolac IVP 30 mg IVP once Route: IVP; Site: right forearm; ha1 20:15 Follow up: Response: No adverse reaction; Marked relief of symptoms; Pain is decreased ha1 20:07 Drug: NS 0.9% IV 1000 ml IV at 1 bolus Per protocol; 1000 mL bolus Route: IV; Rate: 1 ha1 bolus; Site: right forearm; 22:08 Follow up: Response: No adverse reaction; IV Status: Completed infusion; IV Intake: ha1 1000ml 20:07 Drug: Rocephin IV 1 grams IV at per protocol once; Given slow IV push per pharmacy ha1 instructions Route: IV; Rate: per protocol; Site: right forearm; 20:30 Follow up: Response: No adverse reaction; IV Status: Completed infusion ha1 21:17 Drug: morphine IVP or IV 4 mg IVP once over 4 mins Route: IVP; Infused Over: 4 mins; cm10 Site: right forearm; 21:45 Follow up: Response: No adverse reaction; Pain is decreased; RASS: Alert and Calm (0) ha1 21:41 Drug: NS 0.9% IV 1000 ml IV at 1 bolus Per protocol; 1000 mL bolus Route: IV; Rate: 1 ha1 bolus; Site: right forearm; 09/15 00:56 Follow up: Response: No adverse reaction; IV Status: Completed infusion; IV Intake: ha1 1000ml 04/27 21:41 Drug: Flomax PO 0.4 mg PO once Route: PO; ha1 22:07 Follow up: Response: No adverse reaction ha1 Disposition Summary: 09/15/23 21:49 Hospitalization Ordered Notes: Hospitalization Status: Inpatient Admission fermin Provider: Devyn Wise cha Location: Telemetry/MedSurg (Inpatient) fermin Condition: Fair fermin Problem: new fermin Symptoms: have improved fermin Bed/Room Type: [facility] Room Assignment: 216(09/15/23 23:29) jb4 Diagnosis - Acute kidney failure, unspecified ferimn - Hydronephrosis with renal and ureteral calculous obstruction - 4 mm distal fermin Forms: - Medication Reconciliation Form fermin - SBAR form fermin - Leadership Thank You Letter fermin Signatures: Dispatcher [employer] EDMS Paco Woodward MD MD cha Bryson, James RN RN jb4 Marni Hein RN RN ha1 Ana Hobbs RN RN cm10 Corrections: (The following items were deleted from the chart) 19:51 19:51 Abdomen Pelvis W Con+CT.RAD.BRZ ordered. EDIN EDMS 23:29 21:49 fermin jb4
--- NOTE | 2023-09-15 21:50 | ER ---
Nurse's Notes [facility] Name: Sherri De La Garza Age: 58 yrs Sex: Female : 1965 Arrival Date: 09/15/2023 Time: 19:22 Bed 7 Private MD: Diagnosis: Acute kidney failure, unspecified;Hydronephrosis with renal and ureteral calculous obstruction-4 mm distal Presentation: 09/14 19:35 Chief complaint: Patient states: I had a cystoscopy and urethral stent on my left side. jb4 It was done on Sunday and the stent was taken out on Sunday. I was doing fine until about 2 hours ago an now I am having excruciating left flank pain and pain with urination that radiates down to my pelvic region. Coronavirus screen: At this time, the client does not indicate any symptoms associated with coronavirus-19. Ebola Screen: No symptoms or risks identified at this time. Initial Sepsis Screen: Does the patient meet any 2 criteria? No. Patient's initial sepsis screen is negative. Does the patient have a suspected source of infection? No. Patient's initial sepsis screen is negative. Risk Assessment: Do you want to hurt yourself or someone else? Patient reports no desire to harm self or others. Onset of symptoms was September 15, 2023. Transition of care: patient was not received from another setting of care. 19:35 Method Of Arrival: Wheelchair jb4 19:35 Acuity: NICOLE 3 jb4 Triage Assessment: 19:39 General: Appears distressed, uncomfortable, Behavior is anxious, crying. Pain: jb4 Complains of pain in left flank. Pain radiates to pelvis Pain currently is 10 out of 10 on a pain scale. Quality of pain is described as stabbing, Pain began 2 hours ago. Neuro: Level of Consciousness is awake, alert, obeys commands, Oriented to person, place, time, situation. Cardiovascular: Patient's skin is warm and dry. Respiratory: Airway is patent Respiratory effort is even, unlabored, Respiratory pattern is regular, symmetrical. Derm: Skin is intact, Skin is pink, warm \T\ dry. Musculoskeletal: Circulation, motion, and sensation intact. Range of motion: intact in all extremities. Historical: - Allergies: 19:39 No Known Allergies; jb4 - PMHx: 19:39 Asthma; gastritis; Hypertensive disorder; High colesterol; jb4 - PSHx: 19:39 back sx; Cholecystectomy; knee repair; Total abdominal hysterectomy; jb4 - Immunization history:: Adult Immunizations up to date. - Infectious Disease History:: Denies. - Social history:: Smoking status: Reported history of juuling and/or vaping. - Family history:: not pertinent. Screenin:[address] [facility] ED Fall Risk Assessment (Adult) History of falling in the last 3 months, ha1 including since admission No falls in past 3 months (0 pts) Confusion or Disorientation No (0 pts) Intoxicated or Sedated No (0 pts) Impaired Gait No (0 pts) Mobility Assist Device Used No (0 pt) Altered Elimination No (0 pt) Score/Fall Risk Level 0 - 2 = Low Risk Oriented to surroundings, Maintained a safe environment, Educated pt \T\ family on fall prevention, incl call for assistance when getting out of bed, Hourly rounding (assess needs \T\ fall precautionary measures) done. Abuse screen: Denies threats or abuse. Denies injuries from another. Nutritional screening: No deficits noted. Tuberculosis screening: No symptoms or risk factors identified. Assessment: 19:30 General: Appears uncomfortable, Behavior is anxious, crying. Pain: Complains of pain in ha1 left lower quadrant Pain does not radiate. Pain currently is 10 out of 10 on a pain scale. Quality of pain is described as shooting, throbbing, Pain began 2 hours ago. Is continuous. Neuro: Level of Consciousness is awake, alert, obeys commands, Oriented to person, place, time, situation. Cardiovascular: Capillary refill < 3 seconds Patient's skin is warm and dry. Respiratory: Airway is patent Respiratory effort is even, unlabored, Respiratory pattern is regular, symmetrical. GI: No signs and/or symptoms were reported involving the gastrointestinal system. Abdomen is flat, non-distended. : Reports ureter stent removed Sunday. pain at left lower quadrant. Derm: Skin is pink, warm \T\ dry. Musculoskeletal: Circulation, motion, and sensation intact. Range of motion: intact in all extremities. 20:15 Reassessment: Patient and/or family updated on plan of care and expected duration. Pain ha1 level reassessed. Patient is alert, oriented x 3, equal unlabored respirations, skin warm/dry/pink. pain 5/10. 21:15 Reassessment: Patient and/or family updated on plan of care and expected duration. Pain ha1 level reassessed. Patient is alert, oriented x 3, equal unlabored respirations, skin warm/dry/pink. 22:20 Reassessment: Patient and/or family updated on plan of care and expected duration. Pain ha1 level reassessed. Patient is alert, oriented x 3, equal unlabored respirations, skin warm/dry/pink. 23:20 Reassessment: Patient and/or family updated on plan of care and expected duration. Pain ha1 level reassessed. Patient is alert, oriented x 3, equal unlabored respirations, skin warm/dry/pink. Vital Signs: 19:35 BP 151 / 67; Pulse 105; Resp 20; Temp 97.8(O); Pulse Ox 97% on R/A; Weight 62.14 kg jb4 (R); Height 5 ft. 5 in. ; Pain 10/10; 20:00 BP 115 / 61; Pulse 74; Resp 18; Pulse Ox 97% on R/A; cm10 21:00 BP 104 / 50; Pulse 70; Resp 18; Pulse Ox 98% on R/A; cm10 22:12 BP 114 / 73; Pulse 77; Resp 16; Pulse Ox 99% on R/A; cm10 23:30 BP 111 / 64; Pulse 69; Resp 17 S; Pulse Ox 97% on R/A; ha1 19:35 Body Mass Index 22.80 (62.14 kg, 165.1 cm) jb4 19:35 Pain Scale: Adult 4 ED Course: 19:24 Patient arrived in ED. ra3 19:27 Patient has correct armband on for positive identification. Placed in gown. Bed in low ha1 position. Call light in reach. Side rails up X 1. 19:32 Paco Woodward MD is Attending Physician. [facility] 19:32 Inserted saline lock: 22 gauge in right forearm, using aseptic technique. Blood ha1 collected. 19:39 Triage completed. jb4 19:39 Arm band placed on right wrist. jb4 19:53 Marni Hein, TESS is Primary Nurse. ha1 19:55 CBC with Diff Sent. ha1 19:55 CMP Sent. ha1 19:55 Lipase Sent. ha1 20:33 Abdomen In Process Unspecified. EDMS 21:00 Patient requests pain medication. cm10 21:17 Urinalysis w/ reflexes Sent. cm10 21:48 Devyn Wise MD is Hospitalizing Provider. [facility] 09/15 00:55 Provided Education on: need for admit . ha1 00:55 No provider procedures requiring assistance completed. ha1 Administered Medications: 09/14 19:40 Drug: Ondansetron IVP 4 mg IVP once; over 2 minutes Route: IVP; Site: right forearm; ha1 20:10 Follow up: Response: No adverse reaction; Marked relief of symptoms ha1 19:42 Drug: morphine IVP or IV 4 mg IVP once over 4 mins Route: IVP; Infused Over: 4 mins; ha1 Site: right forearm; 20:10 Follow up: Response: No adverse reaction; Marked relief of symptoms; Pain is decreased; ha1 RASS: Alert and Calm (0) 19:44 Drug: Ketorolac IVP 30 mg IVP once Route: IVP; Site: right forearm; ha1 20:15 Follow up: Response: No adverse reaction; Marked relief of symptoms; Pain is decreased ha1 20:07 Drug: NS 0.9% IV 1000 ml IV at 1 bolus Per protocol; 1000 mL bolus Route: IV; Rate: 1 ha1 bolus; Site: right forearm; 22:08 Follow up: Response: No adverse reaction; IV Status: Completed infusion; IV Intake: ha1 1000ml 20:07 Drug: Rocephin IV 1 grams IV at per protocol once; Given slow IV push per pharmacy ha1 instructions Route: IV; Rate: per protocol; Site: right forearm; 20:30 Follow up: Response: No adverse reaction; IV Status: Completed infusion ha1 21:17 Drug: morphine IVP or IV 4 mg IVP once over 4 mins Route: IVP; Infused Over: 4 mins; cm10 Site: right forearm; 21:45 Follow up: Response: No adverse reaction; Pain is decreased; RASS: Alert and Calm (0) ha1 21:41 Drug: NS 0.9% IV 1000 ml IV at 1 bolus Per protocol; 1000 mL bolus Route: IV; Rate: 1 ha1 bolus; Site: right forearm; 09/15 00:56 Follow up: Response: No adverse reaction; IV Status: Completed infusion; IV Intake: ha1 1000ml 09/14 21:41 Drug: Flomax PO 0.4 mg PO once Route: PO; ha1 22:07 Follow up: Response: No adverse reaction ha1 Medication: 09/15 00:55 VIS not applicable for this client. ha1 Intake: 09/14 22:08 IV: 1000ml; Total: 1000ml. ha1 09/15 00:56 IV: 1000ml; Total: 2000ml. ha1 Outcome: 09/14 21:49 Decision to Hospitalize by Provider. fermin 09/15 00:55 Admitted to Med/surg accompanied by nurse, via wheelchair, room 218, with chart, ha1 Condition: stable Discharge instructions given to patient, Instructed on the need for admit, Demonstrated understanding of instructions, 00:56 Patient left the ED. 1 Signatures: Dispatcher [employer] EDPaco Cabello MD MD cha Bryson, James RN RN jb4 Marni Hein RN RN ha1 Ana Hobbs RN RN cm10 Cat Rain 3 Corrections: (The following items were deleted from the chart) 09/14 21:21 21:21 Response: No adverse reaction; Marked relief of symptoms; Pain is decreased; ha1 RASS: Alert and Calm (0) ha1
[2023-09-15] MEDS ORDERED: ALBUTEROL 2.5 MG/3 ML NEB SOL NEB PRN (23:15)
--- NOTE | 2023-09-15 23:15 | P.HP ---
Certification for Inpatient Patient admitted to: Observation With expected LOS: <2 Midnights Patient will require the following post-hospital care: None Practitioner: I am a practitioner with admitting privileges, knowledge of patient current condition, hospital course, and medical plan of care. Services: Services provided to patient in accordance with Admission requirements found in Title 42 Section 412.3 of the Code of Federal Regulations Patient History Date of Service: 09/15/23 Reason for admission: Left flank pain History of Present Illness: 58-year-old female with history and/HLD/gastritis/nephrolithiasis status post recent left cystoscopy and stent placement, stent removed [address] Barraza; patient developed new left flank pain today 3 hours prior to presentation where pain radiates down to the groin area she described pain at about 7 out of 10. She admits to nausea but no vomiting. Pain is excruciating and seems to be cramping in pattern. On arrival in the ED vital signs were stable afebrile and nontachycardic, laboratory workup shows urine with greater than 50 RBCs, serum WBC within normal range, BMP shows creatinine elevation to 2.03. Her previous baseline is around 0.[address] of the abdomen and pelvics shows left UVP junction 4 mm calculus with left hydronephrosis. Allergies codeine Allergy (Verified 03/17/14 12:06) Shortness of breath Home Medications: Zolpidem Tartrate [Ambien] 10 mg PO PRN 05/24/16 Albuterol Inhaler [Ventolin Inhaler*] 2 puff IH Q6H PRN #1 hfa.aer.[email or web address] 05/26/16 Azithromycin [Zithromax] 500 mg PO DAILY #5 tablet 05/26/16 Cefuroxime Axetil [Ceftin] 500 mg PO BID #10 tablet 05/26/16 Guaifen W/Codeine Syrup [ROBITUSSIN A-C Syrup] 5 ml PO Q4HP PRN #150 ml 05/26/16 Hydrocodone 10/APAP 325 [[place] 10/325*] 1 tab PO Q6H PRN #12 tab 05/26/16 - Past Medical/Surgical History Diabetic: No -: asthma -: GERD -: HTN -: Gastritis -: tubal ligation -: cholesystectomy -: uterine ablation -: right ovary and tube removed -: hystero 12/19/12 -: foot surgery 2016 - Family History Family History: Reviewed- Non-Contributory - Family History Father Notes: pt is adopted Mother -: Diabetes - Social History Smoking Status: Unknown if ever smoked Alcohol use: No CD- Drugs: No Caffeine use: Yes Place of Residence: Home Review of Systems 10-point ROS is otherwise unremarkable Physical Examination - Physical Exam General: Alert, In no apparent distress, Oriented x3 HEENT: Atraumatic, Normocephalic, PERRLA Neck: Supple, 2+ carotid pulse no bruit, JVD not distended Respiratory: Clear to auscultation bilaterally, Normal air movement Cardiovascular: No edema, Normal pulses, Regular rate/rhythm, Normal S1 S2 Capillary refill: <2 Seconds Gastrointestinal: Normal bowel sounds, Soft and benign, Non-distended, No ascites Musculoskeletal: No clubbing, No swelling Integumentary: No rashes, No breakdown, No significant lesion Neurological: Normal gait, Normal speech, Normal strength at 5/5 x4 extr, Normal tone, Cranial nerves 3-12 intact External genitalia: No edema - Studies Laboratory Data (last 24 hrs) 09/15/23 09/15/23 19:51 19:51 WBC 5.30 Hgb 10.9 L Hct 31.7 L Plt Count 304 Sodium 138 Potassium 4.3 BUN 17 Creatinine 2.03 H Glucose 115 H Total Bilirubin 0.2 AST 8 L ALT 20 Alkaline Phosphatase 96 Lipase 42 Assessment and Plan - Plan Impression Left obstructing renal calculus Acute kidney injurydue to hydronephrosis Hypertension HLD Gastritis history Plan Will admit patient to observation Start gentle IV fluid with LR Start Flomax to help stone passage Pain control Avoid NSAIDs Consult to urology Dr. Vasquez see on Sunday Monitor creatinine trend if worsening then patient might need more urgent cystoscopy and stone retrieval SCDs for DVT prophylaxis Full code Resume home medications - Advance Directives Does patient have a Living Will: No Does patient have a Durable POA for Healthcare: No Time Spent Managing Pts Care (In Minutes): 65
[2023-09-15] MEDS ORDERED: MORPHINE 2 MG/ML SYR ONE (23:56)
[2023-09-16] MEDS: MORPHINE 2 MG/ML SYR IV PRN
[2023-09-16 01:17] VITALS: O2SAT 97
[2023-09-16] MEDS: NA CHLORIDE 0.9% 1,000 ML IV SCH ×2 (01:37→03:00)
[2023-09-16] MEDS: ZOLPIDEM TARTRATE 10 MG TABLET PO ONE (02:05)
[2023-09-16 02:52] VITALS: BMI 22.8
[2023-09-16 04:20] LABS: Absolute Basophils 0.1 K/uL (0-0.5); Absolute Eosinophils 0.3 K/uL (0-0.5); Absolute Lymphocytes (CBC) 1.5 K/uL (0.7-4.9); Absolute Monocytes 0.6 K/uL (0.1-1.3); Absolute Neutrophil 2.2 K/uL (1.8-8.0); Basophils % 1.3 % (0-1.3); Hemoglobin 9.5 g/dL (12.0-15.0); Lymphocytes % 32.2 % (15.3-44.8); MCH 32.6 pg (27.0-35.0); MCHC 33.9 g/dL (32.0-36.0); MCV 95.9 fL (80-100); MPV 6.6 fL (7.6-11.3); Monocytes % 12.3 % (3.3-12.3); Neutrophils % 47.2 % (41.7-73.7); Nucleated Red Blood Cells % 0.2 % (0-0); Platelets 230 thou/uL (152-406); RBC Red Blood Cell Count 2.91 M/uL (3.86-4.86)
[2023-09-16 04:41] LABS: Albumin 2.8 g/dL (3.4-5.0); Anion Gap 5.2 mEq/L (5.0-15.0); Bilirubin Total 0.2 mg/dL (0.2-1.0); Globulin 2.7 g/dL (2.3-3.5); Potassium 4.2 mEq/L (3.5-5.1); Protein, Total 5.5 g/dL (6.4-8.2)
[2023-09-16] MEDS: MORPHINE 4 MG/ML SYR IV PRN ×2 (08:58→12:22)
--- NOTE | 2023-09-16 11:41 | P.PN ---
Subjective Date of Service: 09/16/23 Chief Complaint: Left flank pain Pt is laying in bed. She complains of left flank pain that is improving. Pt is still straining her urine. No other complaints. Review of Systems General: Unremarkable Eyes: Unremarkable ENT: Unremarkable Respiratory: Unremarkable Cardiovascular: Unremarkable Gastrointestinal: Other (left flank pain) Genitourinary: Unremarkable Musculoskeletal: Unremarkable Integumentary: Unremarkable Neurological: Unremarkable Lymphatics: Unremarkable Physical Examination - Vital Signs Temperature: 98.3 F Blood Pressure: 110/58 Pulse: 83 Respirations: 16 Pulse Ox (%): 96 - Physical Exam General: Alert, In no apparent distress, Oriented x3 HEENT: Atraumatic, Normocephalic, PERRLA Neck: Supple, 2+ carotid pulse no bruit Respiratory: Clear to auscultation bilaterally, Normal air movement Cardiovascular: No edema, Normal pulses, Regular rate/rhythm, Normal S1 S2 Capillary refill: <2 Seconds Gastrointestinal: Normal bowel sounds, Soft and benign, Non-distended Musculoskeletal: No clubbing, No swelling Integumentary: No rashes, No breakdown, No significant lesion Neurological: Normal speech, Normal strength at 5/5 x4 extr, Normal tone, Sensation intact Lymphatics: No axilla or inguinal lymphadenopathy - Studies Laboratory Data (last 24 hrs) 09/15/23 09/15/23 19:51 19:51 WBC 5.30 Hgb 10.9 L Hct 31.7 L Plt Count 304 Sodium 138 Potassium 4.3 BUN 17 Creatinine 2.03 H Glucose 115 H Total Bilirubin 0.2 AST 8 L ALT 20 Alkaline Phosphatase 96 Lipase 42 Assessment And Plan - Plan Left obstructing renal calculus: CT aabd shows 4mm calculi with hydronephrosis. Will continue IVF, flomax, prn morphine and strain urine. Consulted Dr. Diaz. Pt may need cystoscopy and stone removal if no improvement. Acute kidney injury: Due to hydronephrosis. Will continue IVF, avoid nephrotoxins andmonitor renal function. Hypertension: Continue home med HLD: Atorvastatin Gastritis history: continue protonix DVT ppx: SCD Code: full
--- NOTE | 2023-09-16 16:26 | CON ---
Date of Consultation: 09/16/2023 Reason For Consultation: Elevated BUN and creatinine, fluid management, nephrolithiasis. History Of Present Illness: This is a pleasant 58-year-old female with significant past medical history of hyperlipidemia, the patient has been complaining of left-sided flank pain seen by Dr. Diaz, Urology, found to have hydronephrosis with stricture. For that reason, the patient undergo stenting a few days ago. The patient continued to have the pain for that reason reported to the hospital. Upon arrival to the hospital, found to have hematuria. CT show hydronephrosis and lab showed elevation in BUN and creatinine. For that reason, the patient was admitted. The patient's kidney function 1 year back within normal limit with creatinine 0.9. The patient was started on hydration. Kidney function has been improved. The patient is still complaining some pain. Past Medical History: Includes: 1. Hydronephrosis. 2. Hyperlipidemia. 3. Bronchial asthma. 4. GERD. Home Medications: Include Ambien, azithromycin, cefuroxime. Allergies: TO CAFFEINE. Past Surgical History: Include: 1. Tubal ligation. 2. Cholecystectomy. 3. Uterine ablation. 4. Ovarian tube removed. 5. Hysterectomy. 6. Foot surgery. 7. Stent placement on the left kidney. Family History: Positive for hypertension and diabetes. Social History: Denied smoking. Denied drinking. Denied drugs abuse. Review of Systems: Head and Neck: No red eye. No ear pain. GI: Has abdominal pain. : Has left flank pain. Band Master: No vaginal discharge. Respiratory: No shortness of breath. Cardiovascular: No chest pain. Endocrine: No polydipsia. Skin: No rash. Physical Examination: Vital Signs: When I saw the patient, blood pressure of 110/58, pulse of 83, afebrile. Chest: Clear to auscultation. Heart S1, S2. Regular. Abdomen: Positive for CVA tenderness. No guarding or rebound. Extremities: No edema. Neurologic: No focality. Laboratory Data: WBC 4.8, hemoglobin 9.5, sodium 140, potassium 4.2, bicarb 25, BUN 14, creatinine 1.2, GFR of 52. Yesterday, creatinine 2, GFR of 28. Urinalysis positive for RBC 50, negative for leukorrhea, specific gravity 1.011. Current Medications: The patient on include albuterol, Flomax, Ambien, Zofran, IV fluid. Assessment And Plan: 1. Acute kidney injury secondary to obstructive uropathy/prerenal recover. I am going to continue current hydration. Continue Flomax. We will follow up with Urology. I am going to go ahead and send for basic workup including PC ratio and uric acid for further evaluation. We will send for CK to rule out any rhabdo. 2. Hypertension, currently blood pressure on the lower side. Hold all blood pressure medication. Avoid RENA inhibitor or ARB. 3. Nephrolithiasis with hydronephrosis. Agree with Flomax. Start hydration. We will follow up with Urology. 4. Hydronephrosis, as above. Thank you, Dr. Wise, for allowing us to participate in the care of your patient. Time spent examining the patient [id number], reviewing data, lab and radiology, placing order, discussing the case with the patient, discussing the case with the production team advisor including hospitalist and nursing staff with the dialysis nurse more than 35 minutes CINDY Voice ID: [id number] Report ID: [id number] NIXON
--- NOTE | 2023-09-16 19:58 | P.PN ---
Date of Service: 09/16/23 patient creatinine trending down , d/w with Dr Diaz , may have pased stone but just in case , plan to make her NPO past 9 am sunday am for possible cysto later in pm if still not yet passed stone
[2023-09-16] MEDS: ZOLPIDEM TARTRATE 10 MG TABLET PO PRN (21:12)
[2023-09-17 05:11] LABS: Urine Protein/Creatinine Ratio 0.1 ratio (<0.15)
[2023-09-17 05:18] LABS: UR PROTEIN 5.2 mg/dL (<11.9)
[2023-09-17 06:46] LABS: Albumin 2.8 g/dL (3.4-5.0); Anion Gap 7.9 mEq/L (5.0-15.0); Phosphorus 3.7 mg/dL (2.5-4.9); Potassium 3.9 mEq/L (3.5-5.1); Uric Acid 1.8 mg/dL (2.6-6.0)
--- NOTE | 2023-09-17 07:20 | P.PN ---
Subjective Date of Service: 09/17/23 Chief Complaint: Left flank pain Admitted for left flank pain was noted to have hydronephrosis with left renal calculus obstruction, is being followed by Dr. Barraza Pain control with as needed analgesia - Physical Exam General: Alert, In no apparent distress, Oriented x3 HEENT: Atraumatic, Normocephalic, PERRLA Neck: Supple, 2+ carotid pulse no bruit Respiratory: Clear to auscultation bilaterally, Normal air movement Cardiovascular: No edema, Normal pulses, Regular rate/rhythm, Normal S1 S2 Capillary refill: <2 Seconds Gastrointestinal: Normal bowel sounds, Soft and benign, Non-distended Musculoskeletal: No clubbing, No swelling Integumentary: No rashes, No breakdown, No significant lesion Neurological: Normal speech, Normal strength at 5/5 x4 extr, Normal tone, Sensation intact Lymphatics: No axilla or inguinal lymphadenopathy Review of Systems Per HPI Physical Examination - Vital Signs Temperature: 98.3 F Blood Pressure: 122/58 Pulse: 74 Respirations: 18 Pulse Ox (%): 98 Assessment And Plan - Plan Assessment plan Left obstructing renal calculus: Hydronephrosis Acute kidney injury likely secondary to hydronephrosis Hematuria CT aabd shows 4mm calculi with hydronephrosis. Will continue IVF, flomax, prn morphine and strain urine. Consulted Dr. Diaz. Pt may need cystoscopy and stone removal if no improvement. Acute kidney injury: Due to hydronephrosis. Will continue IVF, avoid nephrotoxins andmonitor renal function. Nephrology consult Hypertension: Continue home med HLD: Atorvastatin Gastritis history: continue protonix DVT ppx: SCD Code: full Discharge Plan: Home Critical Care: No Time Spent Managing PTS Care (In Minutes): 35
--- NOTE | 2023-09-17 08:14 | RAD REPORT ---
EXAM DESCRIPTION: US - Renal Ultrasound-Complete - 09/17/2023 8:05 am CLINICAL HISTORY: eval renal stones Flank pain COMPARISON: Abdomen Exam Complete dated 06/27/2023; Abdomen Pelvis Wo Contrast dated 09/15/2023 FINDINGS: Both kidneys are normal in size, shape and echotexture. The right kidney measures 11.2 x 3.9 x 3.9 cm. No hydronephrosis, focal mass or perinephric fluid. The left kidney measures 9.9 x 4.9 x 4.5 cm. No hydronephrosis, focal mass or perinephric fluid. The urinary bladder is incompletely distended without gross abnormality seen. IMPRESSION: Unremarkable renal sonogram.
[2023-09-17] MEDS: HYDROMORPHONE HCL 2 MG/ML inj IV ONE (09:59)
[2023-09-17 12:59] LABS: Specific Gravity 1.011 (1.005-1.030); Sqamous Epithelial <5 /HPF (None Seen); Urine Bacteria None Seen /HPF (<20); Urine Bilirubin NEGATIVE (Negative); Urine Blood Trace (Negative); Urine Clarity Clear (Clear); Urine Color Colorless (Yellow); Urine Culture Reflex Order NOT NEEDED; Urine Glucose NEGATIVE (Negative); Urine Ketones NEGATIVE (Negative); Urine Microscopic Reflex YN ORDER UMIC; Urine Mucus Slight /HPF (None Seen); Urine Nitrite NEGATIVE (Negative); Urine Protein NEGATIVE (Negative); Urine RBC <5 /HPF (None Seen); Urine Urobilinogen Normal (Normal); Urine WBC <5 /HPF (<5); Urine pH 6.5 (5.0-7.0)
[2023-09-17] MEDS: HYDROMORPHONE HCL 1 MG/ML INJ IV PRN (13:29)
[2023-09-17] MEDS: ONDANSETRON 4 MG/2 ML VIAL IV PRN (19:39)
--- NOTE | 2023-09-17 21:39 | P.CNS ---
Date of Consult: 09/17/23 Reason for Consult: pain and ureterolithiasis Requesting Physician: Paco Woodward Chief Complaint: Left flank pain History of Present Illness: 58-year-old woman with irritable bowel syndrome, hyperlipidemia, and over 2-year history of generalized pain involving her right flank extending into the lower back and bilateral lower mid abdomen, presented on 09/15/2023, after having the left ureteral stent extracted following an operative procedure performed 09/11/2023, where because of meatal stenosis and microscopic hematuria, I performed urethral dilation using sounds, cystoscopy, and bilateral retrograde pyelography studies. She had a renal ultrasound ordered by her primary care physician prior to her initial consultation with me, which did not identify any renal masses or stones, and there was no hydronephrosis seen on the ultrasound. The retrograde studies were performed to rule out upper tract urothelial filling defect, and while no filling defect was identified, I did appreciate some delayed drainage of the left kidney relative to the right, which prompted placement of the left ureteral stent. The purpose of the stent was a test to see if her pain symptoms would improve associated with relief of any functional obstruction present, but despite having the stent, the patient actually felt no relief of her pain, which continued in the right lower back flank region and into the bilateral lower mid abdomen. As a result, she desired to have the stent removed, which was done on 09/14/2023, and after the stent was removed, her pain failed to improve and in fact got worse. This time, it was more specifically focused in the left lower quadrant and could not be relieved. This prompted her visit to the emergency department where a CT scan was performed. -I reviewed the CT scan in detail, and itrevealed some minimal hydronephrosis associated with a approximately 3 mm distal ureteral calculus. Because in addition to the pain the patient had signs of acute kidney injury with creatinine 2.03 on 09/14/2022, she was admitted for management and potentially surgical intervention. However in the interim, the specific left lower quadrant to flank pain has resolved, while she still has the generalized right lower back to flank and bilateral lower abdominal crampy pain and discomfort of uncertain etiology. No abnormalities were identified cystoscopically or on the retrograde studies other than the above to explain her pain, and no abnormalities were identified on the right side or in her pelvis on the CT scan to explain the pain. While the nurses were straining her urine initially, they stop straining the urine today after the ultrasound repeat was performed which revealed the absence of any ongoing hydronephrosis. 09/14/2022 creatinine 2.03, WBC 5.3, hemoglobin 10.9, platelets 304 09/15/2022 creatinine 1.20 09/16/2022 creatinine 0.70 Examination: Patient reasonably well-appearing and in no acute distress Alert, awake, oriented x 3 No dyspnea or sign of respiratory distress Lying in hospital bed and voiding with ease Assessment and recommendation: 58-year-old woman with IBS, hyperlipidemia, generalized right flank/lower quadrant and bilateral mid lower abdominal discomfort/pain, admitted with acute left renal colic + NILS, now pain resolved associated with normalization of her renal function and no sign of obstruction on ultrasound. -I counseled the patient and over 30 minutes of an inpatient visit explaining again the purpose of the stent and the test that was being performed. I explained that I had suspicion of potential degree of functional obstruction, in the absence of any visible calculus or signs of obstruction (pelvocaliectasis), which is why I placed the stent in the first place, but since her pain did not improve, the stent was removed unmasking the acute renal colic due to the 3 mm calculus. I explained that had her pain improved during that stent test, the neck step would have been ureteroscopic investigation, where we likely would have identified the stone. I apologized for her having to go through such a difficult time and discomfort exacerbated by the acute renal colic. -I further explained that while the ultrasound was normal associated with normalization of her renal function, this was only about 90 to 95% certain that she passed the stone. There was still a 5 to 10% chance that a very tiny calculus, like hers at 3 mm, could be only partially and intermittently obstructing, insufficient to cause sufficient hydronephrosis to be detected on ultrasound, and insufficient to result in renal function abnormalities detectable on blood tests. As a result, I explained that in that setting, she would need to let me know if she develops the acute left renal colic again, at which point we would then surgically intervene with ureteroscopy, stone basketing versus laser lithotripsy, and yes, need for repeat ureteral stent placement. -With regard to her chronic pain issues of no anatomic etiology identifiable, she has spoken with Dr. Javier who is recommended VZV testing, apparently to rule out shingles, as he suggested a potential dermatomal pattern to her pain involving the right side, and apparently he may have also wanted to obtain an MRI. To this, the patient expressed an interest to forego additional testing at this point, and she explained that this was because of concerns about the cost associated. -Otherwise, she agreed that she was feeling better from what brought her into the hospital, and she was willing and happy to go home tomorrow morning. She asked if she would be discharged with a few more days of pain medication, noting part of the reason she has felt comfortable being in the hospital and resting here was because of the narcotics she is given right before going to sleep at night. She also took all of the 15-20 doses of [place] 5/325 that I provided for her following her surgery last 09/11/2023. -As far as her suprapubic/lower abdominal discomfort, to what ever extent this may be contributed to by a bladder pain syndrome, since she did not want to wait until her appointment with me next week to reassess this as an outpatient, when she is out of the hospital and off all hospital therapeutics, we agreed that I would go ahead and give her what I would typically provide as a first-line agent, Uroxatrol. I counseled her that this medication is known for first dose hypotension, and this is why it is given at bedtime. Since Uroxatral is not available on formulary with the hospital, tamsulosin/Flomax may be given while here, and I will prescribe the Uroxatral for her on discharge. Allergies codeine Allergy (Verified 03/17/14 12:06) Shortness of breath Home medications list reviewed: Yes Home Medications: Zolpidem Tartrate [Ambien] 10 mg PO PRN 05/24/16 - Past Medical/Surgical History Diabetic: No -: asthma -: GERD -: HTN -: Gastritis -: tubal ligation -: cholesystectomy -: uterine ablation -: right ovary and tube removed -: hystero 12/19/12 -: foot surgery 2015 -: spnal fusion - Family History Father Notes: pt is adopted Mother Medical History: Diabetes - Social History Smoking Status: Current every day smoker Alcohol use: No CD- Drugs: No Caffeine use: No Place of Residence: Home Physical Examination Temp Pulse Resp BP Pulse Ox 96.9 F 66 16 124/56 L 98 09/17/23 20:00 09/17/23 20:00 09/17/23 20:00 09/17/23 20:00 09/17/23 20:00 - Problems (1) Ureterolithiasis Current Visit: Yes Status: Acute (2) Renal colic on left side Current Visit: Yes Status: Acute (3) Pelvic pain Current Visit: Yes Status: Acute Conclusions/Impression: see A&P in HPI Critical Care: No Time Spent Managing Pts care (In Minutes): 45
--- NOTE | 2023-09-18 03:36 | PN ---
Date of Progress Note: 09/17/2023 Chief Complaint: Acute kidney injury, obstructive uropathy. Subjective: The patient presented to the hospital because of severe lower back pain radiating to bot h groins. The patient was found to have elevated BUN and creatinine. IV fluids were started for acu te kidney injury. The patient was found to have nephrolithiasis. She is a 58-year-old woman with si gnificant past medical history of hyperlipidemia. She was seen previously by Dr. Diaz of Urology for left-sided flank pain. She was found to have hydronephrosis with stricture. The patient underwe nt stenting a few days ago. Patient continues to have pain and came to the hospital. She was found to have hematuria. CT scan showed hydronephrosis and lab work revealed elevation of BUN and creatini ne level. IV fluids were started for acute kidney injury. Baseline creatinine back in 2022 was 0.9. Kidney function has improved in response to IV fluids. Review of Systems: Denies chest pain, palpitation. Physical Examination: Lungs: Diminished breath sounds at bases. Heart: S1, S2. Abdomen: Soft, benign. Extremities: No edema. Laboratory Data: Sodium 140, potassium 4.2, bicarbonate 25, BUN 14, creatinine 1.2. Urinalysis show ed RBC 50, negative for leukocytosis or leukorrhea. Impression And Plan: 1.Acute kidney injury secondary to obstructive uropathy. Continue IV fluids. The patient has ATN d ue to hypotension and volume depletion. The patient came to the hospital because of severe pain in t he flank. Patient was previously seen by urologist. Continue Flomax. Evaluate UA, check for any ev idence of rhabdomyolysis. Check CK level. 2.Hypertension. Continue blood pressure medication. Avoid RENA inhibitor and avoid angiotensin rece ptor christine. 3.Nephrolithiasis with hydronephrosis. The patient will need further workup with Urology. 4.Hydronephrosis. Check UA and urine culture. Continue Flomax. EB/MODL Voice ID: [id number] Report ID: [id number]
[2023-09-18 04:24] LABS: Albumin 3.2 g/dL (3.4-5.0); Anion Gap 4.1 mEq/L (5.0-15.0); Phosphorus 3.9 mg/dL (2.5-4.9); Potassium 4.1 mEq/L (3.5-5.1)
--- NOTE | 2023-09-18 08:39 | P.DS ---
Admission Date: 09/15/23 Discharge Date: 09/18/23 Disposition: ROUTINE DISCHARGE Discharge Condition: GOOD Reason for Admission: Left flank pain Brief History of Present Illness: 58-year-old female with history and/HLD/gastritis/nephrolithiasis status post recent left cystoscopy and stent placement, stent removed [address] Barraza; patient developed new left flank pain today 3 hours prior to presentation where pain radiates down to the groin area she described pain at about 7 out of 10. She admits to nausea but no vomiting. Pain is excruciating and seems to be cramping in pattern. On arrival in the ED vital signs were stable afebrile and nontachycardic, laboratory workup shows urine with greater than 50 RBCs, serum WBC within normal range, BMP shows creatinine elevation to 2.03. Her previous baseline is around 0.[address] of the abdomen and pelvics shows left UVP junction 4 mm calculus with left hydronephrosis. - Physical Exam General: Alert, In no apparent distress, Oriented x3 HEENT: Atraumatic, Normocephalic, PERRLA Neck: Supple, 2+ carotid pulse no bruit, JVD not distended Respiratory: Clear to auscultation bilaterally, Normal air movement Cardiovascular: No edema, Normal pulses, Regular rate/rhythm, Normal S1 S2 Capillary refill: <2 Seconds Gastrointestinal: Normal bowel sounds, Soft and benign, Non-distended, No ascites Musculoskeletal: No clubbing, No swelling Integumentary: No rashes, No breakdown, No significant lesion Neurological: Normal gait, Normal speech, Normal strength at 5/5 x4 extr, Normal tone, Cranial nerves 3-12 intact Hospital Course: 58-year-old female with history and/HLD/gastritis/nephrolithiasis status post recent left cystoscopy and stent placement, stent removed [address] Barraaz; patient developed new left flank pain today 3 hours prior to presentation where pain radiates down to the groin. She was treated with IV fluids, as needed analgesics, antiemetics. laboratory workup shows urine with greater than 50 RBCs, serum WBC within normal range, BMP shows creatinine elevation to 2.03. Her previous baseline is around 0.[address] of the abdomen and pelvics shows left UVP junction 4 mm calculus with left hydronephrosis. Dr. Diaz was consulted. Repeat ultrasound was ordered, to evaluate kidney stone, hydronephrosis has resolved, ureteral stone has passed. Pain is controlled with as needed analgesics. Patient is tolerating diet, stable to discharge, follow-up with primary care 1 to 2 weeks. Follow-up with Dr. Barraza urology. Assessment plan Left obstructing renal calculus-resolved during hospital stay Acute kidney injurydue to hydronephrosis-improved, hydronephrosis resolved with IV fluids, passage of stone bladder pain syndrome, Discharge medication prescribed by Dr. Madi Mcbride for her on discharge. Hypertension-resume home meds HLD resume home meds Gastritis history-resume home meds Follow-up with Dr. Diaz after discharge Discharge medication prescribed by Dr. Madi Mcbride for her on discharge. year-old female patient presented with Was noted to have Condition improved with Patient tolerating diet, stable for discharge to home with follow-up appointment with primary care physician. Continue home medicines as previously prescribed GOAL: Clear understanding of disease process INSTRUCTIONS: Physician Discharge Instructions: -Follow-up with PCP in 1 to 2 weeks -Please call Dr. Javier at [phone] if any questions regarding hospital stay -Please call nursing station at [phone] if any nursing or medication questions -Return to the emergency room if symptoms worsen Diet: ADA, low sodium Activity: Fall precautions Vital Signs/Physical Exam: Temp Pulse Resp BP Pulse Ox 98.3 F 74 18 122/58 L 98 09/18/23 08:32 09/18/23 08:32 09/18/23 08:32 09/18/23 08:32 09/18/23 08:32 Laboratory Data at Discharge: WBC 4.80 thou/uL (4.3-10.9) 09/16/23 03:43 Hgb 9.5 g/dL (12.0-15.0) L D 09/16/23 03:43 Hct 28.0 % (36.0-45.0) L 09/16/23 03:43 Plt Count 230 thou/uL (152-406) 09/16/23 03:43 Sodium 138 mEq/L (136-145) 09/18/23 02:55 Potassium 4.1 mEq/L (3.5-5.1) 09/18/23 02:55 BUN 7 mg/dL (7-18) 09/18/23 02:55 Creatinine 0.86 mg/dL (0.55-1.02) 09/18/23 02:55 Glucose 97 mg/dL (74-106) 09/18/23 02:55 Uric Acid 1.8 mg/dL (2.6-6.0) L 09/17/23 05:39 Phosphorus 3.9 mg/dL (2.5-4.9) 09/18/23 02:55 Total Bilirubin 0.2 mg/dL (0.2-1.0) 09/16/23 03:43 AST 5 U/L (15-37) L 09/16/23 03:43 ALT 15 U/L (13-56) 09/16/23 03:43 Alkaline Phosphatase 78 U/L (45-117) 09/16/23 03:43 Lipase 42 U/L (13-75) 09/15/23 19:51 Home Medications: Zolpidem Tartrate [Ambien] 10 mg PO PRN 05/24/16 Alfuzosin HCl [Uroxatral] 10 mg PO BEDTIME #30 tab.sr.24h 09/17/23 New Medications: Alfuzosin HCl [Uroxatral] 10 mg PO BEDTIME #30 tab.sr.24h Diet: AHA Activity: Fall precautions Followup: Tanmay Hartman DO [Primary Care Provider] - Rod Diaz [ACTIVE - CAN ADMIT] - Time spent managing pt's care (in minutes): 55
[2023-09-18 09:03] VITALS: BP 122/58; TEMP 98.3
== END 2023-09-18 10:27 | disposition home or self-care (01) | DRG 694 ==
LOC: ER 19:22 → ERHOLD 23:15 → 2ND 09-16 00:19
PROVIDERS: ADMIT Internal Medicine; ATTEND Hospitalist
DX: N13.2 Hydronephrosis with renal and ureteral calculous obstruction (principal); N17.0 Acute kidney failure with tubular necrosis; I10 Essential (primary) hypertension; N23 Unspecified renal colic; E78.00 Pure hypercholesterolemia, unspecified; E86.9 Volume depletion, unspecified; K29.50 Unspecified chronic gastritis without bleeding; K21.9 Gastro-esophageal reflux disease without esophagitis; F17.200 Nicotine dependence, unspecified, uncomplicated; R31.9 Hematuria, unspecified; Z88.5 Allergy status to narcotic agent; Z98.51 Tubal ligation status; Z90.49 Acquired absence of other specified parts of digestive tract; Z91.018 Allergy to other foods; Z90.710 Acquired absence of both cervix and uterus; Z79.899 Other long term (current) drug therapy
CPT/HCPCS: 36415; 36569; 74176; 76770; 80053; 80069; 81001; 82550; 82570; 83690; 84156; 84550; 85025; 96361; 96365; 96375; 99285; J0696; J1170; J2270; J2405; J7030

== ENCOUNTER 2024-03-17 20:41 | Emergency (ER) | payer OTHER ==
--- OUTSIDE RECORDS SUMMARY | 2024-03-17 20:43 | XMS REPORT | Clinical Summary ---
Author Name Unknown Organization [facility] Address [address] [place] [address] Care Team Providers Care Planogrammer Name Role Phone Unavailable Primary Care Provider Unavailabl e Allergies No known active allergies Medications Medication Sig Dispensed Refills Start Date End Date Status albuterol (VENTOLIN HFA,PROAIR HFA) 90 mcg/puff inhaler 05/10/2020 Active atorvastatin (LIPITOR) 20 mg tablet 05/06/2020 Active ergocalciferol (DRISDOL) 50,000 units capsule 12/18/2019 Active HYDROcodone-acetamin ophen (NORCO) 7.5 mg-325 mg per tablet 07/23/2020 Acti ve methylPREDNISolone (MEDROL DOSEPACK) 4 mg tablet 07/22/2020 Active pantoprazole (PROTONIX) 40 mg EC tablet TAKE 1 TABLET BY MOUTH DAILY 30 MINUTES BEFORE BREAKFAST (EMPTY STOMACH) 04/30/2020 Active zolpidem (AMBIEN) 10 mg tablet 07/09/2020 Active INV-() varenicline (CHANTIX) 1 mg tabletIndications:Ex -smoker for less than 1 year Take 1 tablet (1 mg) by mouth twice daily 84 tablet 09/03/2020 Active Active Problems Problem Noted Date Diagnosed Date Ex-smoker for less than 1 year 09/03/2020 Social History Tobacco Use Types Packs/Day Years Used Date Smoking Tobacco: Former Cigarettes 1 20.2 2 001 - 08/06/2020 Smokeless Tobacco: Never [...] Due Date Last Done Comments COVID-19 Vaccine (2023-2 5 season) 2024 Influenza Vaccine (#1) 2024 Pneumococcal Vaccine: Pediat rics (0 to 5 Years) and At-Risk Patients (6 to 64 Years) Aged Out No longer eligi ble based on patient's age to complete this topic
[2024-03-17] MEDS ORDERED: LIDOCAINE 2% W/EPI 1:200,000 MPF 20 ML VIAL IM ONE (21:29)
[2024-03-17] MEDS ORDERED: TDAP (DIPHTH,PERTUSS(ACELL),TET VAC) 0.5 ML VIAL IMVAC ONE (21:30)
--- NOTE | 2024-03-17 21:30 | RAD REPORT ---
Exam:Foot Right 3 View CLINICAL HISTORY: Right foot pain FINDINGS: No acute fracture or dislocation seen. 8mm radiopaque foreign body within the plantar soft tissue right foot. Postsurgical changes involve the foot.
--- NOTE | 2024-03-17 23:13 | EDPHYS ---
Physician Documentation [facility] Name: Sherri De La Garza Age: 58 yrs Sex: Female : 1965 Arrival Date: 03/17/2024 Time: 20:41 Bed 24 Private MD: ED Physician Bakari Lopez HPI: 03/17 21:23 This 58 yrs old Female presents to ER via Ambulatory with complaints of ec2 Foreign Body - in right heel. 21:24 Patient arrives today for evaluation of stepping on a foreign body. States that she had ec2 stepped on some type of object in her utility shed and states that she been trying to grab it however has been unsuccessful. Unsure of tetanus status. Patient reports otherwise no other concerns. No history of diabetes. Historical: - Allergies: 21:18 No Known Allergies; vc1 - PMHx: 21:18 Asthma; gastritis; High colesterol; Hypertensive disorder; vc1 - PSHx: 21:18 back sx; Cholecystectomy; knee repair; Total abdominal hysterectomy; vc1 - Immunization history:: Adult Immunizations up to date. - Infectious Disease History:: Denies. - Social history:: Smoking status: Reported history of juuling and/or vaping. ROS: 21:24 Constitutional: as per hpi ec2 Exam: 21:24 Constitutional: GEN: NAD Head: atraumatic Eyes: EOMI Ears: External ears are ec2 normal. CV: regular rate LUNGS: no respiratory distress ABD: non-distended SKIN: Small wound appreciated to the heel of the right foot MSK: no evidence of trauma Vital Signs: 21:00 BP 144 / 73; Pulse 66; Pulse Ox 95% ; fu 21:16 BP 134 / 84; Pulse 69; Resp 18; Temp 98.3; Pulse Ox 100% ; Weight 63.5 kg; Height 5 ft. vc1 5 in. ; Pain 5/10; 21:45 BP 130 / 82; Pulse 59; Pulse Ox 96% ; fu 22:00 BP 136 / 80; Pulse 68; Resp 16; Pulse Ox 100% on R/A; Pain 8/10; fu 22:45 BP 130 / 73; Pulse 67; Pulse Ox 99% ; fu 23:15 BP 132 / 82; Pulse 73; Resp 17; Pulse Ox 100% ; fu 21:16 Body Mass Index 23.30 (63.50 kg, 165.1 cm) vc1 21:16 Pain Scale: Adult vc1 22:00 Pain Scale: Adult fu Procedures: 23:12 Foreign Body Removal: piece of plastic, from the right right foot, by using alligator ec2 clamps, incising to remove, using lidocaine 1% with epinephrine to anesthesize the area, Dressing: tape was employed, The patient tolerated the removal well. MDM: 21:10 Medical Screening Exam initiated ec2 21:24 Data reviewed: vital signs. ED course: Patient arrives today for evaluation of stepping ec2 on foreign body. Examination remarkable for skin findings as above. Foot x-ray independently reviewed and interpreted by me, shows small approximately half a centimeter foreign body in the heel of the right foot. Will inject lidocaine with epinephrine to anesthetize and attempt retrieval. Will update tetanus status.. 23:12 ED course: Patient with small retained foreign body in the right heel without was able ec2 to extract without issue. Patient discharged home. Return precautions given. . 03/17 20:52 Order name: Foot Right 3 View XRAY; Complete Time: 22:18 ec2 Administered Medications: 21:37 Drug: Boostrix Tdap IM 0.5 ml IM once; as a single dose Route: IM; Site: left deltoid; fu 23:26 Follow up: Response: No adverse reaction fu 23:25 Drug: Lidocaine-Epinephrine Infiltration -2 % (1:100,000) 10 ml Infiltration once; to fu bedside {Note: Administered by Dr. Lopez.} Route: Infiltration; Disposition Summary: 03/17/24 23:12 Discharge Ordered Notes: Location: Home ec2 Condition: Stable ec2 Diagnosis - Foreign Body, right heel, initial encounter ec2 Followup: ec2 - With: Private Physician - When: - Reason: Re-evaluation by your physician Discharge Instructions: - Discharge Summary Sheet ec2 - Skin Foreign Body ec2 Forms: - Medication Reconciliation Form ec2 - Antibiotic Education ec2 - Prescription Opioid Use ec2 - Patient Portal Instructions ec2 - Leadership Thank You Letter ec2 Signatures: Dispatcher [employer] Erick Hyatt RN RN fu Calcote, Vanessa, RN RN vc1 Bakari Lopez MD MD ec2
--- NOTE | 2024-03-17 23:13 | ER ---
Nurse's Notes [facility] Name: Sherri De La Garza Age: 58 yrs Sex: Female : 1965 Arrival Date: 03/17/2024 Time: 20:41 Bed 24 Private MD: Diagnosis: Foreign Body, right heel, initial encounter Presentation: 03/17 21:16 Chief complaint: Patient states: Stepped on something and can't get it out. Coronavirus vc1 screen: Client denies travel out of the [place] in the last 14 days. At this time, the client does not indicate any symptoms associated with coronavirus-19. Ebola Screen: Patient negative for fever greater than or equal to 101.5 degrees Fahrenheit, and additional compatible Ebola Virus Disease symptoms Patient denies exposure to infectious person. Patient denies travel to an Ebola-affected area in the 21 days before illness onset. No symptoms or risks identified at this time. Initial Sepsis Screen: Does the patient meet any 2 criteria? No. Patient's initial sepsis screen is negative. Does the patient have a suspected source of infection? No. Patient's initial sepsis screen is negative. Risk Assessment: Do you want to hurt yourself or someone else? Patient reports no desire to harm self or others. Onset of symptoms was March 17, 2024. 21:16 Method Of Arrival: Ambulatory vc1 21:16 Acuity: NICOLE 4 vc1 Historical: - Allergies: 21:18 No Known Allergies; vc1 - PMHx: 21:18 Asthma; gastritis; High colesterol; Hypertensive disorder; vc1 - PSHx: 21:18 back sx; Cholecystectomy; knee repair; Total abdominal hysterectomy; vc1 - Immunization history:: Adult Immunizations up to date. - Infectious Disease History:: Denies. - Social history:: Smoking status: Reported history of juuling and/or vaping. Screenin:18 [facility] ED Fall Risk Assessment (Adult) History of falling in the last 3 months, vc1 including since admission No falls in past 3 months (0 pts) Confusion or Disorientation No (0 pts) Intoxicated or Sedated No (0 pts) Impaired Gait No (0 pts) Mobility Assist Device Used No (0 pt) Altered Elimination No (0 pt) Score/Fall Risk Level 0 - 2 = Low Risk Oriented to surroundings, Maintained a safe environment, Educated pt \T\ family on fall prevention, incl call for assistance when getting out of bed. Abuse screen: Denies threats or abuse. Nutritional screening: No deficits noted. Tuberculosis screening: No symptoms or risk factors identified. Assessment: 22:29 General: Appears in no apparent distress. Pain: Complains of pain in right foot Pain fu does not radiate. Pain currently is 8 out of 10 on a pain scale. Quality of pain is described as throbbing, Pain began 6 hours ago. Neuro: Level of Consciousness is awake, alert, obeys commands, Oriented to person, place, time, situation, Gait is steady, Speech is normal. Derm: mild swelling on the plantar aspect of right foot. 23:12 Reassessment: Dr. Lopez in patient room performing removal of foreign body on patient fu right heel. Vital Signs: 21:00 BP 144 / 73; Pulse 66; Pulse Ox 95% ; fu 21:16 BP 134 / 84; Pulse 69; Resp 18; Temp 98.3; Pulse Ox 100% ; Weight 63.5 kg; Height 5 ft. vc1 5 in. ; Pain 5/10; 21:45 BP 130 / 82; Pulse 59; Pulse Ox 96% ; fu 22:00 BP 136 / 80; Pulse 68; Resp 16; Pulse Ox 100% on R/A; Pain 8/10; fu 22:45 BP 130 / 73; Pulse 67; Pulse Ox 99% ; fu 23:15 BP 132 / 82; Pulse 73; Resp 17; Pulse Ox 100% ; fu 21:16 Body Mass Index 23.30 (63.50 kg, 165.1 cm) vc1 21:16 Pain Scale: Adult vc1 22:00 Pain Scale: Adult fu ED Course: 20:43 Patient arrived in ED. ra3 21:08 Bakari Lopez MD is Attending Physician. ec2 21:12 Foot Right 3 View XRAY In Process Unspecified. EDMS 21:18 Triage completed. vc1 21:18 Arm band placed on right wrist. vc1 22:28 Erick Naqvi, TESS is Primary Nurse. fu 22:35 Patient has correct armband on for positive identification. Call light in reach. Pulse fu ox on. NIBP on. 23:30 No provider procedures requiring assistance completed. Patient did not have IV access fu during this emergency room visit. Administered Medications: 21:37 Drug: Boostrix Tdap IM 0.5 ml IM once; as a single dose Route: IM; Site: left deltoid; fu 23:26 Follow up: Response: No adverse reaction fu 23:25 Drug: Lidocaine-Epinephrine Infiltration -2 % (1:100,000) 10 ml Infiltration once; to fu bedside {Note: Administered by Dr. Lopez.} Route: Infiltration; Medication: 21:19 VIS not applicable for this client. vc1 Outcome: 23:12 Discharge ordered by . ec2 23:35 Discharged to home ambulatory, fu 23:35 Condition: good 23:35 Discharge instructions given to patient, Instructed on discharge instructions, follow up and referral plans. Demonstrated understanding of instructions, follow-up care, Prescriptions given X 0 23:36 Patient left the ED. fu Signatures: Dispatcher [employer] Erick Hyatt, RN RN Chante Arreola RN RN vc1 Bakari Lopez MD MD ec2 Alva, Ruby ra
[2024-03-18 01:04] VITALS: TEMP 98.3
[2024-03-18 01:09] VITALS: BP 132/82; O2SAT 100
== END 2024-03-17 23:36 | disposition home or self-care (01) ==
LOC: ER 20:41
DX: S90.851A Superficial foreign body, right foot, initial encounter (principal)
CPT/HCPCS: 96372; 99284

== ENCOUNTER 2025-02-18 12:02 | Emergency (ER) | payer OTHER ==
--- OUTSIDE RECORDS SUMMARY | 2025-02-18 12:05 | XMS REPORT | Clinical Summary ---
Author Name Unknown Organization [facility] Address [address] [place] [address] Care Team Providers Care Photographic Process Attendant Name Role Phone Unavailable Primary Care Provider Unavailabl e Allergies No known active allergies Medications * This document contains information received from the source organization and may not represent a complete record from that organization. albuterol (VENTOLIN HFA,PROAIR HFA) 90 mcg/puff inhaler 0 Active atorvastatin (LIPITOR) 20 mg tablet 0 Active ergocalciferol (DRISDOL) 50,000 units capsule 0 Active HYDROcodone-acet aminophen (NORCO) 7.5 mg-325 mg per tablet 1 Active methylPREDNISolo ne (MEDROL DOSEPACK) 4 mg tablet 1 Active pantoprazole (PROTONIX) 40 mg EC tablet TAKE 1 TABLET BY MOUTH DAILY 30 MINUTES BEFORE BREAKFAST (EMPTY STOMACH) 0 Active zolpidem (AMBIEN) 10 mg tablet 1 Active INV-() varenicline (CHANTIX) 1 mg tabletIndication s:Ex-smoker for less than 1 year Take 1 tablet (1 mg) by mouth twice daily 84 tablet 09/03/2020 5:02 PM CDT 1 Active Active Problems Problem Noted Date Diagnosed [...] oz pur e alcohol) 1-2 drinks year Comments Unknown Sex and Gender Information Value Date Recorded Sex Assigned at Not on file 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
[2025-02-18] MEDS ORDERED: MORPHINE 4 MG/ML SYR ONE (12:53)
[2025-02-18] MEDS ORDERED: ONDANSETRON 4 MG/2 ML VIAL ONE (12:53)
[2025-02-18] MEDS ORDERED: MAGNESIUM CITRATE 300 ML BOT ONE (12:54)
[2025-02-18] MEDS ORDERED: FLEET ENEMA ADULT PR ONE (12:54)
[2025-02-18] MEDS ORDERED: NA CHLORIDE 0.9% 1,000 ML ONE (12:54)
[2025-02-18 13:22] LABS: Absolute Lymphocytes (CBC) 1.5 K/uL (0.7-4.9); Hematocrit 37.3 % (36.0-45.0); Hemoglobin 12.5 g/dL (12.0-15.0); MCH 31.4 pg (27.0-35.0); MCHC 33.4 g/dL (32.0-36.0); MCV 93.9 fL (80-100); MPV 7.0 fL (7.6-11.3); Nucleated RBC Absolute Count 0.0 (0-0); Nucleated Red Blood Cells % 0.1 % (0-0); RBC Red Blood Cell Count 3.98 M/uL (3.86-4.86); White Blood Count 4.60 thou/uL (4.3-10.9)
[2025-02-18 13:35] LABS: ALT/SGPT 19.0 U/L (13-56); AST/SGOT 13.0 U/L (15-37); Albumin 4.1 g/dL (3.4-5.0); Albumin/Globulin Ratio 1.3 (1.1-1.8); Alkaline Phosphatase 96.0 U/L (45-117); Anion Gap 8.4 mEq/L (5.0-15.0); BUN Blood Urea Nitrogen 9.0 mg/dL (7-18); Globulin 3.1 g/dL (2.3-3.5); Glucose Level 101.0 mg/dL (74-106); Lipase 30.0 U/L (13-75); Potassium 3.4 mEq/L (3.5-5.1)
--- NOTE | 2025-02-18 14:07 | RAD REPORT ---
EXAMINATION: Abdomen Pelvis W Contrast CLINICAL INDICATION: Female, 59 years old.CONSTIPATION TECHNIQUE: CT abdomen and pelvis was performed, after the administration of IV contrast, as per [facility] protocol. Axial, sagittal and coronal reconstructions were obtained. One or more of the following dose reduction techniques were used: Automated exposure control, adjustment of the mA and/o r kV according to patient size, and/or iterative reconstruction. Unless otherwise specified, incidental findings do not require dedicated imaging follow-up. [id number]. COMPARISON: 01/29/2023, 02/11/2024 FINDINGS: LOWER CHEST: No acute process identified.No significant pericardial effusion. Mild circumferential th ickening of the distal esophagus which could reflect esophagitis. UPPER GI: Fluid distended stomach.. Possible wall thickening of the gastric antrum which is nonspecif ic. LIVER: Hepatic steatosis. Low-density liver lesions have benign imaging features. Similar intrahepati c biliary duct dilatation. GALLBLADDER/BILE DUCTS: Cholecystectomy. Similar moderate extrahepatic biliary duct dilatation? PANCREAS: No mass, ductal dilation, or hesham-pancreatic fluid. SPLEEN: Unremarkable. ADRENALS: No adrenal masses. KIDNEYS AND URETERS: No hydronephrosis.Low density and/or too small to characterize renal lesions whi ch are statistically benign.No renal calculi.No ureteral calculi. ABDOMINAL AORTA AND OTHER VESSELS: Mild atherosclerotic changes. PERITONEUM: No abnormal free fluid. No free air. LYMPH NODES: No pathologic lymphadenopathy. ABDOMINAL WALL: Unremarkable SMALL BOWEL/COLON: Small bowel has normal course and caliber. No colonic wall thickening or pericolon ic inflammatory changes.Normal appendix. Moderate diverticulosis without diverticulitis. URINARY BLADDER: Underdistended but grossly unremarkable. REPRODUCTIVE ORGANS: Uterus surgically absent. No adnexal abnormality. MUSCULOSKELETAL: L4-5 fusion. No acute fracture. ADDITIONAL FINDINGS: None. IMPRESSION: No acute findings within the abdomen or pelvis. Mild thickening of the distal esophagus as well as thickening of the gastric antrum could reflect eso phagitis/gastritis. Similar intra- and extrahepatic biliary duct dilatation following cholecystectomy. Correlate with LFT s. If abnormal, could consider further evaluation with MRCP.
--- NOTE | 2025-02-18 14:48 | ER ---
Nurse's Notes [facility] Name: Sherri De La Garza Age: 59 yrs Sex: Female : 1965 Arrival Date: 02/18/2025 Time: 12:02 Bed 20 Private MD: Diagnosis: Abdominal pain, Generalized Presentation: 02/18 12:20 Chief complaint: Patient states: abnormal bowel movement for months but has been worse dd2 past 4 days. reports she took OTC laxatives, had a liquid bm on on Sunday but nothing since and now having pain in stomach, rectum and lower back and unable to eat/drink. Coronavirus screen: At this time, the client does not indicate any symptoms associated with coronavirus-19. Ebola Screen: No symptoms or risks identified at this time. Initial Sepsis Screen: Does the patient meet any 2 criteria? No. Patient's initial sepsis screen is negative. Does the patient have a suspected source of infection? No. Patient's initial sepsis screen is negative. Risk Assessment: Do you want to hurt yourself or someone else? Patient reports no desire to harm self or others. Onset of symptoms was February 14, 2025. 12:20 Method Of Arrival: Ambulatory dd2 12:20 Acuity: NICOLE 3 dd2 Triage Assessment: 12:23 General: Appears in no apparent distress. uncomfortable, Behavior is cooperative, dd2 appropriate for age, crying. Pain: Complains of pain in back, buttocks and abdomen. GI: Reports constipation, intolerance of fluids, intolerance of food, nausea. Historical: - Allergies: 12:23 No Known Allergies; dd2 - PMHx: 12:23 Asthma; gastritis; High colesterol; Hypertensive disorder; dd2 - PSHx: 12:23 back sx; Cholecystectomy; knee repair; Total abdominal hysterectomy; dd2 - Immunization history:: Adult Immunizations up to date. - Infectious Disease History:: Denies. - Social history:: Smoking status: Reported history of juuling and/or vaping. Screenin:12 [facility] ED Fall Risk Assessment (Adult) History of falling in the last 3 months, go2 including since admission No falls in past 3 months (0 pts) Confusion or Disorientation No (0 pts) Intoxicated or Sedated No (0 pts) Impaired Gait No (0 pts) Mobility Assist Device Used No (0 pt) Altered Elimination No (0 pt) Score/Fall Risk Level 0 - 2 = Low Risk. Abuse screen: Denies threats or abuse. Denies injuries from another. Nutritional screening: No deficits noted. Tuberculosis screening: No symptoms or risk factors identified. Assessment: 13:10 Reassessment: Patient appears in no apparent distress at this time. No changes from go2 previously documented assessment. Patient is alert, oriented x 3, equal unlabored respirations, skin warm/dry/pink. General: Appears in no apparent distress. comfortable, well groomed, Behavior is calm, cooperative, appropriate for age, Reports Denies fever, feeling ill, fatigue, chills. Pain: Complains of pain in abdomen Pain currently is 10 out of 10 on a pain scale. Quality of pain is described as aching, dull, sharp, Pain began 2-3 days ago. Also complains of constipation. Neuro: No deficits noted. Cardiovascular: No deficits noted. Denies chest pain, diaphoresis, fatigue, lightheadedness, nausea, palpitations, shortness of breath, syncope, vomiting. Respiratory: No deficits noted. GI: Bowel sounds present X 4 quads. Abd is soft Abdomen is tender to palpation Reports lower abdominal pain, upper abdominal pain, bloating, constipation, Patient currently denies constipation. : No deficits noted. No signs and/or symptoms were reported regarding the genitourinary system. EENT: No deficits noted. No signs and/or symptoms were reported regarding the EENT system. Derm: No deficits noted. No signs and/or symptoms reported regarding the dermatologic system. Musculoskeletal: No deficits noted. No signs and/or symptoms reported regarding the musculoskeletal system. 13:13 Reassessment: Patient ambulatory to bathroom without assistance, no incident. Patient go2 doing Enema in bathroom. . Vital Signs: 12:20 BP 113 / 77; Pulse 85; Resp 17; Temp 98.2; Pulse Ox 100% ; Pain 10/10; dd2 14:17 BP 126 / 98; Pulse 78; Resp 16; Pulse Ox 97% ; go2 12:20 Pain Scale: Adult dd2 ED Course: 12:05 Patient arrived in ED. cj3 12:[address] FNP-C is PSYCHIATRICP. dr5 12:09 Abran Millan DO is Attending Physician. dr5 12:23 Triage completed. dd2 12:23 Arm band placed on left wrist. dd2 12:51 Erin Jones, RN is Primary Nurse. go2 13:09 CBC with Diff Sent. go2 13:09 CMP Sent. go2 13:09 Lipase Sent. go2 13:11 Patient has correct armband on for positive identification. Bed in low position. Call go2 light in reach. Side rails up X 1. Provided Education on: . Client placed on continuous cardiac and pulse oximetry monitoring. NIBP monitoring applied. regional merchandising manager on. Pulse ox on. NIBP on. Door closed. Noise minimized. Warm blanket given. 13:12 Inserted saline lock: 20 gauge in left forearm, using aseptic technique. Blood go2 collected. Flushed with 10 mL NS. 13:50 CT Abd/Pelvis - IV Contrast Only In Process Unspecified. EDMS 14:56 No provider procedures requiring assistance completed. IV discontinued, intact, go2 bleeding controlled, No redness/swelling at site. Administered Medications: 13:08 Drug: Fleet Enema SC 133 ml SC once; may repeat once Route: SC; go2 14:18 Follow up: Response: Other go2 13:08 Drug: Magnesium Citrate PO Liquid 300 ml PO once Route: PO; go2 14:18 Follow up: Response: Other go2 13:26 Drug: Ondansetron IVP 4 mg IVP once; over 2 minutes Route: IVP; Site: left forearm; go2 14:18 Follow up: Response: No adverse reaction go2 13:26 Drug: NS 0.9% IV 1000 ml IV at 1 bolus Per protocol; to be given as a bolus over 60 go2 minutes Route: IV; Rate: 1 bolus; Site: left forearm; 13:27 Drug: morphine IVP or IV 4 mg IVP once over 4 mins Route: IVP; Infused Over: 4 mins; go2 Site: left forearm; 14:18 Follow up: Response: Pain is unchanged, physician notified go2 Medication: 14:56 VIS not applicable for this client. go2 Outcome: 14:48 Discharge ordered by . dr5 14:56 Discharged to home ambulatory, go2 14:56 Condition: good 14:56 Discharge instructions given to patient, Instructed on discharge instructions, follow up and referral plans. medication usage, Demonstrated understanding of instructions, follow-up care, medications, Prescriptions given X 2, 14:57 Patient left the ED. go2 Signatures: Dispatcher [employer] EDCRISTIANO MALIN RN RN dd2 Erin Jones RN RN go2 Luis A [address], ELECTROTHERAPIST-C ELECTROTHERAPIST-[facility]5 Trista Cha cj3
--- NOTE | 2025-02-18 14:48 | EDPHYS ---
Physician Documentation [facility] Name: Sherri De La Garza Age: 59 yrs Sex: Female : 1965 Arrival Date: 02/18/2025 Time: 12:02 Bed 20 Private MD: ED Physician Abran Millan HPI: 02/18 16:46 This 59 yrs old Female presents to ER via Ambulatory with complaints of dr5 Abdominal Pain, Rectal Pain, Constipation. 16:46 The patient presents with abdominal pain. Onset: The symptoms/episode began/occurred 5 dr5 month(s) ago. Patient is a 59-year-old female with history of asthma, gastritis, hypertension, hyperlipidemia coming in with abdominal pain is been intermittent since Sunday. Patient reports that she has had GI issues her entire life including IBS and possibly Crohn's. Patient reports she took magnesium citrate as well as MiraLAX with no relief. Patient states that she went to the GI doctor today and was referred to outpatient imaging center for CT abdomen pelvis with contrast to rule out obstruction. Patient states that her pain was too bad that she wanted to be seen in the ER.. Historical: - Allergies: 12:23 No Known Allergies; dd2 - PMHx: 12:23 Asthma; gastritis; High colesterol; Hypertensive disorder; dd2 - PSHx: 12:23 back sx; Cholecystectomy; knee repair; Total abdominal hysterectomy; dd2 - Immunization history:: Adult Immunizations up to date. - Infectious Disease History:: Denies. - Social history:: Smoking status: Reported history of juuling and/or vaping. ROS: 16:46 Constitutional: as per hpi dr5 Exam: 16:46 Constitutional: This is a well developed, well nourished patient who is awake, alert, dr5 and in no acute distress. Head/Face: Normocephalic, atraumatic. Eyes: Pupils equal round and reactive to light, extra-ocular motions intact. Lids and lashes normal. Conjunctiva and sclera are non-icteric and not injected. Cornea within normal limits. Periorbital areas with no swelling, redness, or edema. ENT: Nares patent. No nasal discharge, no septal abnormalities noted. Tympanic membranes are normal and external auditory canals are clear. Oropharynx with no redness, swelling, or masses, exudates, or evidence of obstruction, uvula midline. Mucous membranes moist. Neck: Trachea midline, no thyromegaly or masses palpated, and no cervical lymphadenopathy. Supple, full range of motion without nuchal rigidity, or vertebral point tenderness. No Meningismus. Chest/axilla: Normal chest wall appearance and motion. Nontender with no deformity. No lesions are appreciated. Cardiovascular: Regular rate and rhythm with a normal S1 and S2. Normal PMI, no JVD. No pulse deficits. Respiratory: Lungs have equal breath sounds bilaterally, clear to auscultation. No rales, rhonchi or wheezes noted. No increased work of breathing, no retractions or nasal flaring. Abdomen/GI: Soft, nondistended, mild tenderness to palpation in all regions Back: No spinal tenderness. No costovertebral tenderness. Full range of motion. Skin: Warm, dry with normal turgor. Normal color with no rashes, no lesions, and no evidence of cellulitis. MS/ Extremity: Pulses equal, no cyanosis. Neurovascular intact. Full, normal range of motion. Neuro: Awake and alert, GCS 15, oriented to person, place, time, and situation. Cranial nerves II-XII grossly intact. Motor strength 5/5 in all extremities. Sensory grossly intact. Cerebellar exam normal. Normal gait. Vital Signs: 12:20 BP 113 / 77; Pulse 85; Resp 17; Temp 98.2; Pulse Ox 100% ; Pain 10/10; dd2 14:17 BP 126 / 98; Pulse 78; Resp 16; Pulse Ox 97% ; go2 12:20 Pain Scale: Adult dd2 MDM: 12:09 Medical Screening Exam initiated dr5 16:46 Differential diagnosis: bowel obstruction, diverticulitis, gastritis, pancreatitis, dr5 Peptic Ulcer Disease. Differential diagnosis:. Data reviewed: vital signs, nurses notes, lab test result(s), amylase and lipase, CBC, white blood cell count, hemoglobin, hematocrit, platelets, electrolytes, sodium, potassium, chloride, serum bicarbonate, BUN, creatinine, serum glucose. Consideration of Admission/Observation Escalation of care including admission/observation considered. Escalation considered patient found to have diverticulitis with perforation. I considered the following discharge prescriptions or medication management in the emergency department I discussed and recommended Over The Counter medications, Medications were administered in the Emergency Department. See MAR. Historians other than the Patient: Spouse/Significant Other: Significant other at bedside. Care significantly affected by the following chronic conditions: Asthma, gastritis, IBS, hyperlipidemia, hypertension. Care significantly affected by the following Social Determinants of Health: Poor access to healthcare and/or lack of insurance, Poor access to transportation, Problems related to employment. Counseling: I had a detailed discussion with the patient and/or guardian regarding the historical points, exam findings, and any diagnostic results supporting the discharge/admit diagnosis, the presence of at least one elevated blood pressure reading (>120/80) during this emergency department visit, lab results, radiology results, the need for outpatient follow up, for definitive care, a product architect, to return to the emergency department if symptoms worsen or persist or if there are any questions or concerns that arise at home. Medication response: morphine did not change patient's pain, Response to treatment: There is no appreciated change of the patient's symptoms at this time. Special discussion: Based on the patient's Hx, exam, and Dx evaluation, there is no indication for emergent surgery or inpatient Tx. It is understood by the patient/guardian that if the Sx's persist or worsen they need to return immediately for re-evaluation. I discussed with the patient/guardian in detail that at this point there is no indication for admission to the hospital. It is understood, however, that if the symptoms persist or worsen the patient needs to return immediately for re-evaluation. Based on the history and exam findings, there is no indication for further emergent testing or inpatient evaluation. I discussed with the patient/guardian the need to see the product architect for further evaluation of the symptoms. ED course: All labs and CT scan printed and given to patient to follow-up with Dr. Espitia, her GI doctor. Patient reports that the morphine did not do anything for her pain and she is requesting Dilaudid because Dilaudid always helps her pain. Concerns about giving Dilaudid as opiates make patient more constipated. Explained to patient and patient visibly upset. Educated patient that her doctor wanted her to have outpatient imaging completed and printed out all results so she can take it with her. Patient upset that she is not getting more opiates. All questions answered. Strict ER precautions given. 02/18 12:24 Order name: CBC with Diff; Complete Time: 14: dr5 02/18 12:24 Order name: CMP; Complete Time: : dr5 02/18 12:24 Order name: Lipase; Complete Time: 14: dr5 02/18 12:24 Order name: CT Abd/Pelvis - IV Contrast Only; Complete Time: 14: dr5 02/18 12:24 Order name: IV Saline Lock; Complete Time: 13: dr5 02/18 12:24 Order name: Labs collected and sent; Complete Time: 13:09 dr5 Administered Medications: 13:08 Drug: Fleet Enema NE 133 ml NE once; may repeat once Route: NE; go2 14:18 Follow up: Response: Other go2 13:08 Drug: Magnesium Citrate PO Liquid 300 ml PO once Route: PO; go2 14:18 Follow up: Response: Other go2 13:26 Drug: Ondansetron IVP 4 mg IVP once; over 2 minutes Route: IVP; Site: left forearm; go2 14:18 Follow up: Response: No adverse reaction go2 13:26 Drug: NS 0.9% IV 1000 ml IV at 1 bolus Per protocol; to be given as a bolus over 60 go2 minutes Route: IV; Rate: 1 bolus; Site: left forearm; 13:27 Drug: morphine IVP or IV 4 mg IVP once over 4 mins Route: IVP; Infused Over: 4 mins; go2 Site: left forearm; 14:18 Follow up: Response: Pain is unchanged, physician notified go2 Disposition: 19:10 I was immediately available on-site in the Emergency Department for consultation in the ms3 care of the patient. Disposition Summary: 02/18/25 14:48 Discharge Ordered Notes: Location: Home dr5 Condition: Stable dr5 Diagnosis - Abdominal pain, Generalized dr5 Followup: dr5 - With: Emergency Department - When: As needed - Reason: Worsening of condition Followup: dr5 - With: Private Physician - When: 1 - 2 days - Reason: Recheck today's complaints, Continuance of care, Re-evaluation by your physician Discharge Instructions: - Discharge Summary Sheet dr5 - Abdominal Pain, Adult dr5 Forms: - Medication Reconciliation Form dr5 - Patient Portal Instructions dr5 - Leadership Thank You Letter dr5 Prescriptions: - Zofran 4 mg Oral Tablet - take 1 tablet ORAL route every 12 hours As needed; 20 tablet; Refills: 0, dr5 Product Selection Permitted - Tramadol 50 mg Oral Tablet - take 1 tablet ORAL route every 8 hours as needed; 12 tablet; Refills: 0, dr5 Product Selection Permitted Signatures: Dispatcher [employer] EDAbran Short, DO ms3 CRISTIANO JO, RN RN dd2 Erin Jones RN RN go2 [address], POLISHING MACHINE OPERATOR-C POLISHING MACHINE OPERATOR-Cdr5
[2025-02-18 15:01] VITALS: TEMP 98.2
[2025-02-18 15:03] VITALS: BP 126/98; O2SAT 97
== END 2025-02-18 14:57 | disposition home or self-care (01) ==
LOC: ER 12:02
DX: R10.9 Unspecified abdominal pain (principal); K59.00 Constipation, unspecified; K62.89 Other specified diseases of anus and rectum; I10 Essential (primary) hypertension; E78.00 Pure hypercholesterolemia, unspecified
CPT/HCPCS: 85025; 36415; 83690; 80053; 74177; 96375; 96374; 99285; Q9967; J2405; J7030